=== PATIENT | male | born 1945 | race Caucasian/White ===

== ENCOUNTER 2021-02-17 13:28 | Emergency (ER) | payer MEDICARE, SELFPAY ==
[2021-02-17] VITALS (9 sets, daily range): BP systolic 180–210; BP diastolic 82–98; PULSE 53–71; RESP 20; TEMP 36.9; O2SAT 93–97
--- NOTE | 2021-02-17 15:39 | ED_ITS ---
HPI - Skin/Abscess/Foreign Bdy General Chief complaint: Skin/Abscess/Foreign Body Stated complaint: Wound on left leg he'd like checked out Time Seen by Provider: 02/17/21 15:26 Source: patient Mode of arrival: Ambulatory History of Present Illness HPI narrative: The patient is a 75 year old male with left leg wound ongoing for the last 5 months. He said he initially tripped on a propane tank caused a flap like but on his left leg. It was stapled and has not healed well. He says the surrounding area is always erythematous it is not any more erythematous today. He has had some lateral swelling superior to the area. He wears compression socks says sometimes when he wears compression socks there is drainage from the wound but typically not Related Data Home Medications Medication Instructions Recorded Confirmed amlodipine 5 mg tablet 5 mg PO DAILY 12/01/17 12/01/17 artifi.tears(hypromellose)(PF) 0.3 EYE-BOTH ml 12/01/17 12/01/17 % eye drops aspirin 325 mg tablet 325 mg PO .prn tab 12/01/17 12/01/17 carvedilol 12.5 mg tablet 12.5 mg PO BID 12/01/17 12/01/17 diazepam 10 mg tablet 10 mg PO BID tab 12/01/17 12/01/17 fluticasone propionate 50 2 inhalation INHALATION BID 12/01/17 12/01/17 mcg/actuation blister powder for inhalation furosemide 40 mg tablet 40 mg PO DAILY 12/01/17 12/01/17 omeprazole magnesium 20 mg 40 mg PO DAILY 12/01/17 12/01/17 tablet,delayed release prednisone 1 mg tablet 5 mg PO DAILY tab 12/01/17 12/01/17 Previous Rx's Medication Instructions Recorded doxycycline hyclate 100 mg capsule 100 mg PO BID #14 cap 02/17/21 Allergies Allergy/AdvReac Type Severity Reaction Status Date / Time gentamicin Allergy Verified 12/01/17 11:03 INGREDIENT: NDA - NO KNOWN Allergy Unknown Uncoded 08/25/17 13:03 DRUG ALLERGIES Review of Systems Review of Systems Narrative: GENERAL: Denies chills,fever HEENT: Denies throat pain RESPIRATORY: Denies dyspnea, cough, wheezing CARDIOVASCULAR: Denies chest pain, palpitations GASTROINTESTINAL: Denies nausea, vomiting MUSCULOSKELETAL: Denies extremity pain, injury SKIN: See HPI NEUROLOGIC: Denies weakness, dizziness, headache, numbness 8 point review of systems is negative except for those stated above and HPI Patient History Medical History (Updated 02/17/21 @ 16:13 by Divya Armas DO) HTN (hypertension) Osteoarthritis Surgical History History of ankle fusion History of appendectomy History of appendectomy History of left knee replacement History of total left knee replacement History of tracheostomy Family History Other Hypertension Social History marital status: household members: spouse Smoking Status: Former smoker alcohol intake: current substance use type: marijuana Smoking Status: Former smoker alcohol intake frequency: 0-2 drinks per day Alcohol type: beer Exam Initial Vital Signs Initial Vital Signs: Vital Signs Temperature 98.4 F 02/17/21 13:33 Pulse Rate 71 02/17/21 13:33 Respiratory Rate 20 02/17/21 13:33 Pulse Oximetry 95 02/17/21 13:33 GENERAL: Well-appearing, well-nourished and in no acute distress. CARDIOVASCULAR: peripheral pulses in tact, cap refill <2 sec RESPIRATORY: No respiratory distress, speaks in full sentences without difficulty EXTREMITIES: Normal range of motion, no clubbing or edema. Neurovascularly intact Swelling on the left lateral calf however there is no erythema it is not tender calf is soft no sign NEUROLOGICAL: Cranial nerves II through XII grossly intact. Normal gait and speech. SKIN: Chronic left lower leg wound surrounding erythema edema but patient says it remains unchanged he does have some scabbed area no gross drainage scabbed area is about 3 cm x 3 symptoms years. Course Orders Ordered: ED Orders 02/17/21 14:12 Wound Culture and Gram Stain Stat Vital Signs Vital signs: Vital Signs - 8 hr 02/17/21 13:33 02/17/21 15:17 02/17/21 15:18 Temperature 98.4 F Pulse Rate 71 67 Respiratory Rate 20 Blood Pressure 210/98 H Pulse Oximetry 95 93 95 02/17/21 15:30 02/17/21 15:31 02/17/21 16:00 Temperature Pulse Rate 58 L 58 L 53 L Respiratory Rate Blood Pressure 180/82 H Pulse Oximetry 96 96 97 02/17/21 16:01 02/17/21 16:30 02/17/21 16:33 Temperature Pulse Rate 62 58 L 70 Respiratory Rate Blood Pressure 200/82 H 206/93 H Pulse Oximetry 96 97 96 MDM - Skin/Abscess/Foreign Bdy MDM Narrative Medical decision making narrative: At this time suspicion for acute infection however he has been having some swelling will start him on a short course of antibiotics not sure it will help. Denies dressing has been placed. He certainly needs wound care after 5 months of not healing wound. I have placed a referral for him. Discharge Plan Departure Patient Disposition: Home Clinical Impression: Chronic wound of extremity Instructions: DI for Wound Infection Activity Restrictions/Additional Instructions: *You have been diagnosed with chronic wound *What to do: You have a wound on your leg. We will do a small trial of antibiotics to see if there is any improvement however it did strongly recommended that he go to wound care for further treatment in order to help this heal. May keep pink bandage on there for about 5-7 days *Continue to take medications as directed Doxycycline 100 mg twice a day for 7 *Follow up with your primary care provider in 2-3 days *Return to ER if you should have increasing redness pus draining smell fever pa in or any new, worsening or concerning symptoms Prescriptions: New doxycycline hyclate 100 mg capsule 100 mg PO BID Qty: 14 RF: 0 No Action furosemide 40 mg tablet 40 mg PO DAILY RF: 0 fluticasone propionate 50 mcg/actuation blister with device 2 inhalation INHALATION BID RF: 0 carvedilol 12.5 mg tablet 12.5 mg PO BID RF: 0 aspirin 325 mg tablet 325 mg PO .prn RF: 0 amlodipine 5 mg tablet 5 mg PO DAILY RF: 0 prednisone 1 mg tablet 5 mg PO DAILY RF: 0 diazepam 10 mg tablet 10 mg PO BID RF: 0 omeprazole magnesium 20 mg tablet,delayed release (DR/EC) 40 mg PO DAILY RF: 0 artifi.tears(hypromellose)(PF) 0.3 % drops EYE-BOTH RF: 0 Referrals: Didier Gibson MD [Physician] - Peace Alba PA-C [Primary Care Provider] -
== END 2021-02-17 16:40 | disposition home or self-care (01) ==
PROVIDERS: Emergency Provider Emergency Medicine; PCP Physician Assistant
DX: S81.802A Unspecified open wound, left lower leg, initial encounter (principal)
CPT/HCPCS: 87070; 87077; 87147; 87186; 87205; 99282

== ENCOUNTER → 2021-03-04 14:28 | Outpatient (CLI) | payer MEDICARE, SELFPAY | PROVIDERS: Family Provider Physician Assistant; PCP Physician Assistant; Visit Provider Physician Assistant | DX: L02.91 Cutaneous abscess, unspecified (principal) | CPT/HCPCS: 87070; 87075; 87077; 87147; 87186; 87205 ==

== ENCOUNTER → 2021-04-04 10:29 | Outpatient (CLI) | payer MEDICARE, SELFPAY ==
[2021-04-04 20:08] LABS: Add Manual Diff / Slide Review NO; Basophils Absolute Auto 100 /uL (0-100); Eosinophils Absolute Auto 300 /uL (0-450); Eosinophils Percent Auto 3.5 % (2-4); Hematocrit 42.6 % (41-53); Hemoglobin 14.5 g/dL (13.5-17.5); Lymphocytes Absolute Auto 1700 /uL (1100-4500); Lymphocytes Percent Auto 22.7 % (25-40); Mean Corpuscular HGB Conc 34.1 % (30-36); Mean Corpuscular Hemoglobin 31.6 PG (26-34); Mean Corpuscular Volume 92.9 fL (80-100); Monocytes Absolute Auto 600 /uL (0-900); Monocytes Percent Auto 8.6 % (3-14); Neutrophils Absolute Auto 4900 /uL (1500-7000); Neutrophils Percent Auto 64.2 % (50-75); Platelet Count 209 X10^3/uL (150-400); Red Blood Cell Count 4.59 X10^6/uL (4.5-5.9); Red Cell Distribution Width 13.7 % (11.6-14.8); White Blood Cell Count 7.6 X10^3/uL (4.5-11.0)
[2021-04-04 20:11] LABS: Hemoglobin A1C% w Est Avg Glu 5.6 % (4.0-6.0)
[2021-04-04 20:19] LABS: Alanine Aminotransferase 17 IU/L (<50); Albumin 4.2 g/dL (3.5-5.0); Albumin Globulin Ratio 1.6 (1.0-2.8); Alkaline Phosphatase 57 U/L (38-126); Aspartate Aminotransferase 27 IU/L (17-59); BUN Creatinine Ratio 14.7 (6-22); Bilirubin Total 0.9 mg/dL (0.2-1.3); Blood Urea Nitrogen 16 mg/dL (9-20); Calcium 9.1 mg/dL (8.4-10.2); Carbon Dioxide 31 mmol/L (22-32); Chloride 97 mmol/L (98-107); Cholesterol 209 mg/dL (140-199); Estimated Glomerular Filt Rate > 60.0 mL/min (>60); Globulin 2.6 g/dL (1.7-4.1); Glucose 109 mg/dL (80-110); HDL Cholesterol 43 mg/dL (40-60); HEMOLYSIS < 15 (0-50); LDL Cholesterol Calculated 141 mg/dL (<100); Potassium 4.1 mmol/L (3.4-5.1); Sodium 135 mmol/L (137-145); Total Protein 6.8 g/dL (6.3-8.2); Triglycerides 125 mg/dL (35-150)
[2021-04-04 20:45] LABS: Prostate Specific Antigen 1.14 ng/mL (0.10-4.00)
== END ==
PROVIDERS: Family Provider Physician Assistant; PCP Physician Assistant; Visit Provider Family Medicine
DX: I10 Essential (primary) hypertension (principal)
CPT/HCPCS: 80053; 80061; 83036; 84153; 85025

== ENCOUNTER → 2022-05-01 09:36 | Outpatient (CLI) | payer MEDICARE, SELFPAY ==
[2022-05-01 20:00] LABS: Alanine Aminotransferase 20 IU/L (<50); Albumin 3.7 g/dL (3.5-5.0); Albumin Globulin Ratio 1.4 (1.0-2.8); Alkaline Phosphatase 50 U/L (38-126); Aspartate Aminotransferase 28 IU/L (17-59); Bilirubin Total 0.8 mg/dL (0.2-1.3); Blood Urea Nitrogen 18 mg/dL (9-20); Calcium 8.9 mg/dL (8.4-10.2); Carbon Dioxide 32 mmol/L (22-32); Chloride 96 mmol/L (98-107); Estimated Glomerular Filt Rate > 60 mL/min (>60); Globulin 2.7 g/dL (1.7-4.1); Glucose 94 mg/dL (80-110); HEMOLYSIS < 15 (0-50); Sodium 135 mmol/L (137-145); Total Protein 6.4 g/dL (6.3-8.2)
[2022-05-01 20:28] LABS: Prostate Specific Antigen Scrn 1.34 ng/mL (0.1-4.0)
== END ==
PROVIDERS: Family Provider Physician Assistant; PCP Physician Assistant; Visit Provider Physician Assistant
DX: I10 Essential (primary) hypertension (principal); Z12.5 Encounter for screening for malignant neoplasm of prostate
CPT/HCPCS: 80053; G0103

== ENCOUNTER → 2022-10-21 09:14 | Outpatient (CLI) | payer MEDICARE, SELFPAY ==
[2022-10-21 19:57] LABS: Alanine Aminotransferase 20 IU/L (<50); Albumin 3.7 g/dL (3.5-5.0); Albumin Globulin Ratio 1.4 (1.0-2.8); Alkaline Phosphatase 59 U/L (38-126); Aspartate Aminotransferase 27 IU/L (17-59); BUN Creatinine Ratio 23.9 (6-22); Blood Urea Nitrogen 22 mg/dL (9-20); Calcium 8.6 mg/dL (8.4-10.2); Carbon Dioxide 34 mmol/L (22-32); Chloride 95 mmol/L (98-107); Cholesterol 185 mg/dL (140-199); Estimated Glomerular Filt Rate > 60 mL/min (>60); Globulin 2.7 g/dL (1.7-4.1); Glucose 89 mg/dL (80-110); HDL Cholesterol 47 mg/dL (40-60); HEMOLYSIS < 15 (0-50); LDL Cholesterol Calculated 125 mg/dL (<100); Potassium 4.6 mmol/L (3.4-5.1); Sodium 133 mmol/L (137-145); Total Protein 6.4 g/dL (6.3-8.2); Triglycerides 64 mg/dL (35-150)
== END ==
PROVIDERS: Family Provider Physician Assistant; PCP Physician Assistant; Visit Provider Physician Assistant
DX: E78.5 Hyperlipidemia, unspecified (principal)
CPT/HCPCS: 80053; 80061

== ENCOUNTER → 2023-04-27 11:23 | Outpatient (CLI) | payer MEDICARE, SELFPAY ==
[2023-04-27 19:25] LABS: Alanine Aminotransferase 20 IU/L (<50); Albumin 3.7 g/dL (3.5-5.0); Albumin Globulin Ratio 1.2 (1.0-2.8); Alkaline Phosphatase 53 U/L (38-126); Aspartate Aminotransferase 29 IU/L (17-59); Bilirubin Total 0.8 mg/dL (0.2-1.3); Blood Urea Nitrogen 18 mg/dL (9-20); Calcium 9.2 mg/dL (8.4-10.2); Carbon Dioxide 34 mmol/L (22-32); Chloride 92 mmol/L (98-107); Estimated Glomerular Filt Rate > 60 mL/min (>60); Glucose 102 mg/dL (80-110); HEMOLYSIS < 15 (0-50); Sodium 132 mmol/L (137-145); Total Protein 6.7 g/dL (6.3-8.2)
== END ==
PROVIDERS: Family Provider Physician Assistant; PCP Family Medicine; Visit Provider Physician Assistant
DX: E87.1 Hypo-osmolality and hyponatremia (principal)
CPT/HCPCS: 80053

== ENCOUNTER → 2023-05-05 10:50 | Outpatient (CLI) | payer MEDICARE, SELFPAY ==
[2023-05-05 20:00] LABS: C-Reactive Protein Quant 1.5 mg/dL (<1.0); Rheumatoid Factor < 8.6 IU/mL (<12.0)
[2023-05-05 20:11] LABS: Erythrocyte Sedimentation Rate 16 MM/HR (0-15)
[2023-05-11 12:58] LABS: ANA Screen, IFA Negative (.)
== END ==
PROVIDERS: Family Provider Physician Assistant; PCP Family Medicine; Visit Provider Physician Assistant
DX: M25.50 Pain in unspecified joint (principal); L40.9 Psoriasis, unspecified
CPT/HCPCS: 85651; 86038; 86140; 86430

== ENCOUNTER 2023-09-08 11:09 | Inpatient (IN) | payer MEDICARE, SELFPAY ==
[2023-09-08] VITALS (19 sets, daily range): BP systolic 129–176; BP diastolic 58–97; PULSE 53–93; RESP 16–37; TEMP 36.3–36.9; O2SAT 91–97; BMI 36.0; BMI 35.9
--- NOTE | 2023-09-08 11:10 | ED.GENADULT ---
HPI - General Adult General Chief complaint: Shortness of Breath/Dyspnea Stated complaint: SOB/GI Bleed Time Seen by Provider: 09/08/23 11:10 History of Present Illness HPI narrative: 78-year-old gentleman with a history of hypertension, reflux, on medications for congestive heart failure, 1 mg prednisone daily, complaining of significant left knee pain is considering additional surgery for comfort he tends to stand behind a wing back chair leaning over the chair so he is able to straighten but not bear any weight on the left foot. A couple of days ago he had an episode where he fell asleep while he was standing up, he fell onto the wing back chair and has significant amount of bruising over the mid abdomen. Of note he was seen on September 05 with concerns for seizures with no prior history of seizure disorder. I am wondering if at that point he was having bleeding your pain related to this fall with the, now, large amount of visible external hematoma over the central upper abdomen. This morning he was feeling even more short of breath home saturation was thought to be at 50%, in clinic he was found to be at 80% that came up with oxygen replacement currently on 4 L nasal cannula in the low 90s. He was [facility] the [facility] to [facility] via airlift. He is alert, appropriate in no acute distress. He does note that he had had some darker stools recently and some bright red blood with the most recent. He has no history of GI bleeding. He notes that over the last couple of days since his fall, he has been taking up to 6 regular aspirin a day and a total of 2 [id number] ibuprofen a day to help with the pain. Related Data Home Medications Medication Instructions Recorded Confirmed artifi.tears(hypromellose)(PF) 0.3 EYE-BOTH 12/01/17 09/08/23 % eye drops aspirin 325 mg tablet 325 mg PO .prn 12/01/17 09/08/23 fluticasone propionate 50 spray intranasal 09/08/23 09/08/23 mcg/actuation nasal spray,suspension Previous Rx's Medication Instructions Recorded amlodipine 5 mg tablet 5 mg PO DAILY #90 tabs 05/05/23 azelastine 137 mcg (0.1 %) nasal 2 spray intranasal BID #30 mL 05/05/23 spray aerosol carvedilol 12.5 mg tablet 12.5 mg PO BID #180 tabs 05/05/23 fluticasone propionate 50 2 inh inhalation BID #60 ea 05/05/23 mcg/actuation blister powder for inhalation furosemide 40 mg tablet 40 mg PO DAILY #90 tabs 05/05/23 pantoprazole 20 mg tablet,delayed 20 mg PO DAILY #90 tabs 05/05/23 release prednisone 1 mg tablet 1 mg PO DAILY #90 tabs 05/05/23 hydrocodone 5 mg-acetaminophen 325 1 tab PO Q8H PRN pain #20 tabs 07/07/23 mg tablet calcipotriene 0.005 % topical cream See Rx Instructions topical BID 07/30/23 #60 grams sertraline 25 mg tablet 25 mg PO .COMPLEX #90 tabs 09/06/23 Allergies Allergy/AdvReac Type Severity Reaction Status Date / Time gentamicin Allergy Verified 09/08/23 09:02 lisinopril AdvReac Unknown Verified 09/08/23 09:02 Review of Systems Review of Systems Narrative: Pertinent positive and negative findings as per HPI Patient History Medical History (Updated 09/08/23 @ 13:37 by Chiquita Toro MD) SOB (shortness of breath) GERD (gastroesophageal reflux disease) Meralgia paresthetica, left lower limb Obesity GERD without esophagitis Dysphonia Carpal tunnel syndrome, left upper limb Osteoarthritis HTN (hypertension) Surgical History (Updated 03/06/22 @ 13:10 by Maryan Patel PA-C) History of appendectomy History of ankle fusion History of left knee replacement History of tracheostomy History of total left knee replacement History of appendectomy Family History Other Hypertension Social History marital status: household members: spouse Smoking Status: Former smoker alcohol intake: current substance use type: marijuana Smoking Status: Former smoker alcohol intake frequency: 0-2 drinks per day Alcohol type: beer Exam Initial Vital Signs Initial Vital Signs: Vital Signs Temperature 97.3 F L 09/08/23 11:10 Pulse Rate 63 09/08/23 11:10 Respiratory Rate 16 09/08/23 11:10 Blood Pressure 129/73 09/08/23 11:10 Pulse Oximetry 93 09/08/23 11:10 Oxygen Delivery Method Nasal Cannula 09/08/23 11:10 Oxygen Flow Rate 4 09/08/23 11:10 General: Healthy appearing, in no acute distress. Able to give a complete and coherent history. Well-nourished well-developed. 4 L nasal cannula and able to speak in full sentences HEENT: Moist mucous membranes, normal sclera with reactive pupils, Neck: No JVD, no midline tenderness to palpation Respiratory: Lungs are clear to auscultation, no wheezing no rales no rhonchi. Full and symmetrical air movement Chest: Dramatic subcutaneous bruising over the entire upper abdomen/lower thorax. The bleeding is extending into the right axillary area. He does not have significant pain or tenderness with AP compression of his thorax. Cardiac: Regular rate and rhythm no murmurs no bruits Abdomen: Soft, mild tenderness only with deep palpation. No flank pain. No thoracic tenderness on palpation. On rectal exam he has a small internal hemorrhoid that looks like it has recently bled. Multiple external hemorrhoidal tags that are noninflamed and nonbleeding. Skin: Pale but otherwise Warm and dry, no rashes Neurologic: Grossly neurologically intact with no obvious asymmetries or abnormalities Extremities: Small bruise to the left patella without obvious abrasion or contusion. Complains of tenderness in the right shoulder but has full range of motion and no obvious bony in your in the area including clavicle, scapula, humerus Psych: Cooperative, appropriate insight and affect Course Orders Ordered: ED Orders 09/08/23 11:30 Complete Blood Count AUTO DIFF Stat Comprehensive Metabolic Panel Stat NT-proBNP (BNP-Adult 18+) Stat Troponin I Stat Type and Screen Stat 09/08/23 11:34 CT chest abd pel w con Stat Vital Signs Vital signs: Vital Signs - 8 hr 09/08/23 11:10 09/08/23 11:17 09/08/23 11:26 Temperature 97.3 F L Pulse Rate 63 93 H Respiratory Rate 16 Blood Pressure 129/73 129/73 Pulse Oximetry 93 Oxygen Delivery Method Nasal Cannula Oxygen Flow Rate 4 09/08/23 11:26 09/08/23 11:30 09/08/23 11:31 Temperature Pulse Rate 60 65 Respiratory Rate 26 H 25 H Blood Pressure 166/74 H Pulse Oximetry 92 95 Oxygen Delivery Method Oxygen Flow Rate 09/08/23 11:31 09/08/23 11:52 09/08/23 11:52 Temperature Pulse Rate 60 64 Respiratory Rate 34 H 25 H Blood Pressure 167/78 H Pulse Oximetry 96 95 Oxygen Delivery Method Nasal Cannula Oxygen Flow Rate 4 09/08/23 12:00 09/08/23 12:00 09/08/23 12:30 Temperature Pulse Rate 67 57 L Respiratory Rate 32 H 22 Blood Pressure 176/74 H Pulse Oximetry 95 97 Oxygen Delivery Method Oxygen Flow Rate 09/08/23 12:31 09/08/23 12:31 Temperature Pulse Rate 53 L Respiratory Rate 23 Blood Pressure 157/97 H Pulse Oximetry 94 Oxygen Delivery Method Nasal Cannula Oxygen Flow Rate 4 Medical Decision Making Lab Data 09/08/23 11:30 09/08/23 11:30 Labs: Lab Results 09/08/23 Range/Units 11:30 WBC 7.4 (4.5-11.0) X10^3/uL RBC 3.13 L (4.5-5.9) X10^6/uL Hgb 9.0 L (13.5-17.5) g/dL Hct 27.4 L (41-53) % MCV 87.5 (80-100) fL MCH 28.9 (26-34) PG MCHC 33.0 (30-36) % RDW 15.3 H (11.6-14.8) % Plt Count 310 (150-400) X10^3/uL Neut % (Auto) 69.4 (50-75) % Lymph % (Auto) 17.6 L (25-40) % [place] % (Auto) 11.1 (3-14) % Eos % (Auto) 1.1 L (2-4) % Baso % (Auto) 0.8 (0-2) % Neut # (Auto) 5100 (4987-2697) /uL Lymph # (Auto) 1300 (8580-8783) /uL [place] # (Auto) 800 (0-900) /uL Eos # (Auto) 100 (0-450) /uL Baso # (Auto) 100 (0-100) /uL Sodium 128 L (137-145) mmol/L Potassium 3.9 (3.4-5.1) mmol/L Chloride 92 L (98-107) mmol/L Carbon Dioxide 36 H (22-32) mmol/L BUN 24 H (9-20) mg/dL Creatinine 0.78 (0.66-1.25) mg/dL Estimated GFR > 60 (>60) mL/min BUN/Creatinine Ratio 30.8 H (6-22) Glucose 94 (80-110) mg/dL Calcium 8.5 (8.4-10.2) mg/dL Total Bilirubin 0.7 (0.2-1.3) mg/dL AST 34 (17-59) IU/L ALT 26 (<50) IU/L Alkaline Phosphatase 49 (38-126) U/L Troponin I < 0.012 (0.01-0.034) ng/mL NT-Pro-B Natriuret Pep 334 (<450) pg/mL Total Protein 6.4 (6.3-8.2) g/dL Albumin 3.4 L (3.5-5.0) g/dL Globulin 3.0 (1.7-4.1) g/dL Albumin/Globulin Ratio 1.1 (1.0-2.8) Blood Type O Positive Antibody Screen Negative Imaging Data CT chest abdomen pelvis: Radiologist's Impression: PROCEDURE: CT CHEST ABD PEL W CON INDICATIONS: trauma, blunt - fell a few days ago TECHNIQUE: After the administration of intravenous contrast, 5 mm thick sections acquired from the lung apices to the symphysis. 5 mm coronal and sagittal reformats were performed, with additional 7 mm MIP reformats through the lungs. For radiation dose reduction, the following was used: automated exposure control, adjustment of mA and/or kV according to patient size. COMPARISON: None. FINDINGS: Image quality: Excellent. CHEST: Lower Neck: No enlarged lymph nodes. Thyroid: No thyroid nodules which require sonographic follow up, per consensus guidelines. Axillae: No enlarged lymph nodes. Chest Wall: Unremarkable. Lungs and Pleura: No pneumothorax or pleural effusions. No consolidation or suspicious nodules. Heart: Heart size is mildly prominent. Minimal pericardial effusion. Thoracic Vessels: The aorta and pulmonary arteries demonstrate normal size. Mediastinum and Carolyn: No enlarged lymph nodes. Esophagus: No wall thickening. No hiatal hernia. ABDOMEN: Liver: No solid mass. Hepatic steatosis. Gallbladder: Dependent luminal stone without wall thickening. Biliary ducts: No biliary dilation. Pancreas: No ductal dilation. Spleen: Size is within normal limits. Adrenal Glands: No adrenal nodules. Kidneys and Ureters: No hydronephrosis. No solid mass. No complex renal cystic lesion which requires follow up. Stomach and Bowel: Normal colonic caliber, without significant wall thickening. Diverticulosis. No inflammatory change. The Peritoneum: No abnormal intraperitoneal fluid. No free air. Ventral Wall: No significant ventral hernia. Abdominal Nodes: Retroperitoneal adenopathy is present with an anterior aortic lymph node measuring 1.7 cm on series 2, image 73. No priors. Scattered mildly enlarged peripancreatic as well as mesenteric lymph nodes are also present. Vessels: Aorta and inferior vena cava are normal in size. PELVIS: Pelvic Organs: Unremarkable. Bladder: No bladder wall thickening, accounting for underdistention. Pelvic Nodes: No enlarged lymph nodes. Miscellaneous: Bilateral fat containing inguinal hernias are present. Bones: No aggressive osseous abnormality. Are scoliotic curvature and multilevel degenerative changes are present. IMPRESSION: No visualized acute traumatic osseous or visceral injury. Retroperitoneal adenopathy with although mildly enlarged. Pancreatic mesenteric lymph nodes. While this could be reactive in nature, interval follow-up is recommended as other etiologies cannot be excluded. No priors are available for comparison. Dictated by: Constanza Chirinos M.D. on 09/08/2023 at 12:12 In addition to the above, there is heterogeneous soft tissue density anterior to the right shoulder measuring 7.6 x 6.1 cm. Hounsfield units measure 52. There are several small areas of linear and punctate hyperdensity within the region. Overall appearance is most consistent with hematoma with areas of hyperdensity most suggestive of hemorrhage. No visualized underlying osseous fracture. Dictated by: Constanza Chirinos M.D. on 09/08/2023 at 13:07 MDM Narrative Medical decision making narrative: CC: Dyspnea Complicating co-morbidities: Fall 4 days ago with impressive and extensive bleeding over the lower torso upper abdomen Data collected from: patient, air lift Social determinants of health that may influence the patients condition: Patient lives on [facility] Medical records reviewed: Note from clinic visit this morning are reviewed. Differential considered: Dyspnea related to acute anemia, acute anemia secondary to recent trauma, congestive heart failure exacerbated by anemia, acute coronary syndrome Exam documented above, pertinent findings include: Alert and appropriate, speaking in full sentences, no wheezing, impressive bleeding over the lower thorax/upper abdomen extending into the both thorax and abdomen into the right axilla Lab Test results independently reviewed as above. Pertinent findings: CBC shows hemoglobin of 9 hematocrit of 27.4. Comparison numbers are from March of 2021 and show 14.5 and 42.6. No leukocytosis and platelet count is within normal limits Chemistries show hyponatremia at 1:28 a.m., creatinine is appropriate. Troponin is undetectable BNP is not elevated Imaging studies independently reviewed: CT scan of the chest abdomen and pelvis does not show any acute fractures, pneumothorax, hemothorax, mediastinal abnormalities, intra-abdominal abnormalities of note is a large 7.6 x 6.1 cm hematoma in the anterior right shoulder extending over the pectoralis area consistent with source of likely blood loss. It correlates nicely with the dramatic bruising seen over the anterior shoulder and upper abdomen/torso Consultations: As this is a technical trauma admission and with the large volume of blood loss Dr. Hayward we will consult. Care is reviewed with Dr. Shepard who will admit the patient. Treatments: Because of his significant hypoxia in the setting of acute blood loss he is given a unit blood along with 40 mg of IV Lasix. At this point I do not think he is actively bleeding and TXA is not given. We will continue to follow H&H Discussion: 78-year-old gentleman not currently anticoagulated with mechanical fall approximately 4 days ago over the back edge of a chair with large hematoma to the right anterior shoulder/pectoralis area question of the pectoralis muscle tear is entertained. Due to pain and abrupt anemia he is having increasing dyspnea currently requiring 2 L of oxygen. He will be transfused an initial unit of packed red blood cells, given IV Lasix and reassessed. There was no evidence of underlying trauma to the lungs or bony injuries that would require further evaluation at this time. He understands need for hospital admission Discharge Plan Departure Patient Disposition: Admitted as Observation Clinical Impression: Acute blood loss anemia, Hypoxia, Acute hyponatremia Hematoma of right chest wall Qualifiers: Encounter type: initial encounter Qualified Code(s): S20.211A - Contusion of right front wall of thorax, initial encounter Admit Date/Time: 09/08/23 13:34 Admit Provider: Pavel Shepard
--- NOTE | 2023-09-08 11:34 | DI.CT.S_ITS ---
PROCEDURE: CT CHEST ABD PEL W CON INDICATIONS: trauma, blunt - fell a few days ago TECHNIQUE: After the administration of intravenous contrast, 5 mm thick sections acquired from the lung apices to the symphysis. 5 mm coronal and sagittal reformats were performed, with additional 7 mm MIP reformats through the lungs. For radiation dose reduction, the following was used: automated exposure control, adjustment of mA and/or kV according to patient size. COMPARISON: None. FINDINGS: Image quality: Excellent. CHEST: Lower Neck: No enlarged lymph nodes. Thyroid: No thyroid nodules which require sonographic follow up, per consensus guidelines. Axillae: No enlarged lymph nodes. Chest Wall: Unremarkable. Lungs and Pleura: No pneumothorax or pleural effusions. No consolidation or suspicious nodules. Heart: Heart size is mildly prominent. Minimal pericardial effusion. Thoracic Vessels: The aorta and pulmonary arteries demonstrate normal size. Mediastinum and Carolyn: No enlarged lymph nodes. Esophagus: No wall thickening. No hiatal hernia. ABDOMEN: Liver: No solid mass. Hepatic steatosis. Gallbladder: Dependent luminal stone without wall thickening. Biliary ducts: No biliary dilation. Pancreas: No ductal dilation. Spleen: Size is within normal limits. Adrenal Glands: No adrenal nodules. Kidneys and Ureters: No hydronephrosis. No solid mass. No complex renal cystic lesion which requires follow up. Stomach and Bowel: Normal colonic caliber, without significant wall thickening. Diverticulosis. No inflammatory change. The Peritoneum: No abnormal intraperitoneal fluid. No free air. Ventral Wall: No significant ventral hernia. Abdominal Nodes: Retroperitoneal adenopathy is present with an anterior aortic lymph node measuring 1.7 cm on series 2, image 73. No priors. Scattered mildly enlarged peripancreatic as well as mesenteric lymph nodes are also present. Vessels: Aorta and inferior vena cava are normal in size. PELVIS: Pelvic Organs: Unremarkable. Bladder: No bladder wall thickening, accounting for underdistention. Pelvic Nodes: No enlarged lymph nodes. Miscellaneous: Bilateral fat containing inguinal hernias are present. Bones: No aggressive osseous abnormality. Are scoliotic curvature and multilevel degenerative changes are present. IMPRESSION: No visualized acute traumatic osseous or visceral injury. Retroperitoneal adenopathy with although mildly enlarged. Pancreatic mesenteric lymph nodes. While this could be reactive in nature, interval follow-up is recommended as other etiologies cannot be excluded. No priors are available for comparison. Dictated by: Constanza Chirinos M.D. on 09/08/2023 at 12:12 Approved by: Constanza Chirinos M.D. on 09/08/2023 at 12:16
[2023-09-08 11:42] LABS: Add Manual Diff / Slide Review NO; Basophils Absolute Auto 100 /uL (0-100); Basophils Percent Auto 0.8 % (0-2); Eosinophils Absolute Auto 100 /uL (0-450); Eosinophils Percent Auto 1.1 % (2-4); Hematocrit 27.4 % (41-53); Lymphocytes Absolute Auto 1300 /uL (1100-4500); Lymphocytes Percent Auto 17.6 % (25-40); Mean Corpuscular Hemoglobin 28.9 PG (26-34); Mean Corpuscular Volume 87.5 fL (80-100); Monocytes Absolute Auto 800 /uL (0-900); Monocytes Percent Auto 11.1 % (3-14); Neutrophils Absolute Auto 5100 /uL (1500-7000); Neutrophils Percent Auto 69.4 % (50-75); Platelet Count 310 X10^3/uL (150-400); Red Blood Cell Count 3.13 X10^6/uL (4.5-5.9); Red Cell Distribution Width 15.3 % (11.6-14.8); White Blood Cell Count 7.4 X10^3/uL (4.5-11.0)
[2023-09-08 12:03] LABS: Alanine Aminotransferase 26 IU/L (<50); Albumin 3.4 g/dL (3.5-5.0); Albumin Globulin Ratio 1.1 (1.0-2.8); Alkaline Phosphatase 49 U/L (38-126); Aspartate Aminotransferase 34 IU/L (17-59); BUN Creatinine Ratio 30.8 (6-22); Bilirubin Total 0.7 mg/dL (0.2-1.3); Blood Urea Nitrogen 24 mg/dL (9-20); Calcium 8.5 mg/dL (8.4-10.2); Carbon Dioxide 36 mmol/L (22-32); Chloride 92 mmol/L (98-107); Estimated Glomerular Filt Rate > 60 mL/min (>60); Glucose 94 mg/dL (80-110); HEMOLYSIS < 15 (0-50); Potassium 3.9 mmol/L (3.4-5.1); Sodium 128 mmol/L (137-145); Total Protein 6.4 g/dL (6.3-8.2)
[2023-09-08 12:14] LABS: NT-proBNP (BNP-Adult 18+) 334 pg/mL (<450); Troponin I < 0.012 ng/mL (0.01-0.034)
--- NOTE | 2023-09-08 13:18 | PC.NURSE ---
Patient informed about plan to transfuse a unit of blood. Blood transfusion process reviewed and all questions answered. Patient signed consent and this was placed in chart.
[2023-09-08] MEDS: FUROSEMIDE 40 MG/4 ML VIAL IV (13:56)
--- NOTE | 2023-09-08 14:50 | P.HP_ITS ---
History of Present Illness History of Present Illness Date Patient Seen: 09/08/23 Time Patient Seen: 15:07 Chief complaint: SOB/GI Bleed Narrative: This patient is 78-year-old male who presented by helicopter from [facility]. He is complaint was fatigue and dyspnea as well as black stool. The patient was a very interesting gentleman with history of hypertension and GERD as well as heart failure. He has had significant chronic left and right knee pain related to arthritis. He takes about 6 aspirin and some ibuprofen every day for this. 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 Since that time he has had chronic symptoms of both sleep apnea and stridor he describes having the auto PEEP to breathe adequately. He also notes multiple seizures or seizure type episodes have not been evaluated and treated in the past. There was 1 that was witnessed by his where he was outstretched and rigid with his eyes straightening straight ahead, but no tonic- clonic activity in a very short period of confusion afterwards. He had a recent fall about a week and a half ago with a left rib fracture. He would another fall several days prior where he fell over the back of his chair because he fell asleep in a standing position we will try to off weight his right knee to improve the pain. He notes black tarry stool for several days. He denies any history of GI bleeding or epigastric abdominal pain. He was hypoxic can his primary care doctor's office on [facility] as well as in the emergency department but responded to 4 L of oxygen. Chest x-ray is fairly unremarkable. There is no recent echo data. He has not been evaluated for sleep apnea in the outpatient setting. He denies any chest pain, palpitations, fevers, chills. No recent cough. No vomiting of blood. With regards to level of care he is full resuscitation. He is unsure about being on a mechanical ventilator again. [facility] Medical History SOB (shortness of breath) GERD (gastroesophageal reflux disease) Meralgia paresthetica, left lower limb Obesity GERD without esophagitis Dysphonia Carpal tunnel syndrome, left upper limb Osteoarthritis HTN (hypertension) Surgical History History of appendectomy History of ankle fusion History of left knee replacement History of tracheostomy History of total left knee replacement History of appendectomy Family History Other Hypertension Social History marital status: household members: spouse Smoking Status: Former smoker alcohol intake: current substance use type: marijuana Meds Home Medications and Allergies Home Medications Medication Instructions Recorded Confirmed Type aspirin 325 mg tablet 325 mg PO .prn 12/01/17 09/08/23 History amlodipine 5 mg tablet 5 mg PO DAILY #90 tabs 05/05/23 09/08/23 Rx azelastine 137 mcg (0.1 %) nasal 2 spray intranasal BID #30 mL 05/05/23 09/08/23 Rx spray aerosol carvedilol 12.5 mg tablet 12.5 mg PO BID #180 tabs 05/05/23 09/08/23 Rx furosemide 40 mg tablet 40 mg PO DAILY #90 tabs 05/05/23 09/08/23 Rx pantoprazole 20 mg tablet,delayed 20 mg PO DAILY #90 tabs 05/05/23 09/08/23 Rx release prednisone 1 mg tablet 1 mg PO DAILY #90 tabs 05/05/23 09/08/23 Rx hydrocodone 5 mg-acetaminophen 325 1 tab PO Q8H PRN pain #20 tabs 07/07/23 09/08/23 Rx mg tablet sertraline 25 mg tablet 25 mg PO .COMPLEX #90 tabs 09/06/23 09/08/23 Rx Allergies Allergy/AdvReac Type Severity Reaction Status Date / Time gentamicin Allergy Verified 09/08/23 09:02 lisinopril AdvReac Unknown Verified 09/08/23 09:02 Review of Systems Review of Systems Narrative: All else reviewed and otherwise unremarkable except as noted in the history and physical. Exam Vital Signs (past 8 hours): - 09/08/23 11:10 09/08/23 11:17 09/08/23 11:26 Temperature 97.3 F L Pulse Rate 63 93 H Respiratory Rate 16 Blood Pressure 129/73 129/73 Pulse Oximetry 93 Oxygen Delivery Method Nasal Cannula Oxygen Flow Rate 4 09/08/23 11:26 09/08/23 11:30 09/08/23 11:31 Temperature Pulse Rate 60 65 Respiratory Rate 26 H 25 H Blood Pressure 166/74 H Pulse Oximetry 92 95 Oxygen Delivery Method Oxygen Flow Rate 09/08/23 11:31 09/08/23 11:52 09/08/23 11:52 Temperature Pulse Rate 60 64 Respiratory Rate 34 H 25 H Blood Pressure 167/78 H Pulse Oximetry 96 95 Oxygen Delivery Method Nasal Cannula Oxygen Flow Rate 4 09/08/23 12:00 09/08/23 12:00 09/08/23 12:30 Temperature Pulse Rate 67 57 L Respiratory Rate 32 H 22 Blood Pressure 176/74 H Pulse Oximetry 95 97 Oxygen Delivery Method Oxygen Flow Rate 09/08/23 12:31 09/08/23 12:31 09/08/23 13:00 Temperature Pulse Rate 53 L 63 Respiratory Rate 23 24 Blood Pressure 157/97 H Pulse Oximetry 94 91 Oxygen Delivery Method Nasal Cannula Oxygen Flow Rate 4 09/08/23 13:01 09/08/23 13:01 09/08/23 13:26 Temperature 98.0 F Pulse Rate 55 L 67 Respiratory Rate 22 24 Blood Pressure 151/69 H 163/72 H Pulse Oximetry 91 Oxygen Delivery Method Nasal Cannula Oxygen Flow Rate 4 09/08/23 13:28 09/08/23 13:28 09/08/23 13:30 Temperature Pulse Rate 75 Respiratory Rate 30 H Blood Pressure 163/72 H 152/67 H Pulse Oximetry 93 Oxygen Delivery Method Oxygen Flow Rate 09/08/23 13:30 09/08/23 13:32 09/08/23 13:48 Temperature 98.0 F 98.1 F Pulse Rate 79 72 63 Respiratory Rate 37 H 24 24 Blood Pressure 152/67 H 168/97 H Pulse Oximetry 93 Oxygen Delivery Method Oxygen Flow Rate 09/08/23 13:50 09/08/23 13:50 Temperature Pulse Rate 71 Respiratory Rate Blood Pressure 168/97 H Pulse Oximetry 96 Oxygen Delivery Method Nasal Cannula Oxygen Flow Rate 4 Oxygen Delivery Method Nasal Cannula Oxygen Flow Rate 4 Narrative Exam Narrative: NAD, alert and oriented, fluent speech, calm. On 2 L of oxygen. Normocephalic skull, EOMI, anicteric sclera, symmetric pupils. Oropharynx unremarkable, no droop. Neck supple, midline trachea, no adenopathy. Lungs clear, normal rate and effort. Heart regular, no murmur gallop or rub. He is large bruises in the right axilla, right chest and right upper abdomen. These are minimally tender. Abdomen is soft, non distended and non tender. Extremities are notable for 1 to 2+ bilateral edema. Skin is free of rash or lesions. Joints: Knees are somewhat swollen and deformed from chronic arthritis. Judgment appears to be normal. Objective Labs 09/08/23 11:30 09/08/23 11:30 Labs: Laboratory Results - last 24 hr 09/08/23 11:30 WBC 7.4 RBC 3.13 L Hgb 9.0 L Hct 27.4 L MCV 87.5 MCH 28.9 MCHC 33.0 RDW 15.3 H Plt Count 310 Neut % (Auto) 69.4 Lymph % (Auto) 17.6 L [place] % (Auto) 11.1 Eos % (Auto) 1.1 L Baso % (Auto) 0.8 Neut # (Auto) 5100 Lymph # (Auto) 1300 [place] # (Auto) 800 Eos # (Auto) 100 Baso # (Auto) 100 Sodium 128 L Potassium 3.9 Chloride 92 L Carbon Dioxide 36 H BUN 24 H Creatinine 0.78 Estimated GFR > 60 BUN/Creatinine Ratio 30.8 H Glucose 94 Calcium 8.5 Total Bilirubin 0.7 AST 34 ALT 26 Alkaline Phosphatase 49 Troponin I < 0.012 NT-Pro-B Natriuret Pep 334 Total Protein 6.4 Albumin 3.4 L Globulin 3.0 Albumin/Globulin Ratio 1.1 Blood Type O Positive Antibody Screen Negative Crossmatch See Detail Assessment & Plan Assessment & Plan narrative: 1. Acute blood loss anemia, present on admission and active. He was given a blood transfusion in the emergency department. 2. Large right chest hematoma from contusion and fall. Present on admission and stable. 3. Presumed upper GI bleed with melena, present on admission and active. 4. Acute hypoxic respiratory failure, present on admission and active. 5. GERD, present on admission and active. 6. 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 7. 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 8. Probable acute on chronic heart failure with hypervolemic hyponatremia in leg edema, present on admission and active. Plan: -IV Protonix 40 b.i.d. for probable gastric or duodenal ulcer with bleeding. -trend hemoglobin, blood as needed. -NPO at midnight, surgical consult for both hematoma and upper endoscopy in the morning. This was discussed with Dr. Hayward on the phone on the day of admission. -we will anticipate diuresis and wean oxygen after the 1st 12 hours of observing his blood counts and endoscopy. -2D echo to assess LV function. -consider CT brain given his history of possible seizures to rule out structural lesion. He is full resuscitation, confirmed time of admission. His is proxy decision maker. He was admitted to inpatient status, there is an estimated length of stay over 2 midnights for his medical complexities including GI bleeding, blood loss anemia, and heart failure. Time Spent With Patient Time with patient: 30 to 49 minutes with 50% spent counseling/coordinating care Quality VTE Deep Vein Thrombosis/Pulmonary Embolism Present on Admission: No MIPS - Admit I confirm the patient?s Advance Care Plan is present, Code status is documented, Surrogate decision maker is in patient?s record [If Yes, STOP here]: Yes MIPS - Meds 'Current medications' to include all prescriptions, [id number] products, herbals, cannabis/cannabidiol products, and vitamin/mineral/dietary (nutritional) supplements. I have utilized all available resources to obtain, update, or review the patient?s current medications. [If Yes, STOP here]: Yes
--- NOTE | 2023-09-08 15:42 | PT-IP ANOTE ---
PT eval order received. EMR reviewed. checked with nurse and pt currently receiving blood transfusion. informed hospitalist and agreed to hold PT today. will f/u.
[2023-09-08] MEDS: PANTOPRAZOLE 40 MG VIAL IV ×2 (17:30→21:48)
[2023-09-08] MEDS: HEPARIN 5,000 UNIT/ML VIAL 5000 UNIT SUBCUT (21:48)
[2023-09-08] MEDS: OXYCODONE IR 5 MG TABLET PO (22:54)
[2023-09-08 23:07] LABS: Hematocrit 28.1 % (41-53); Hemoglobin 9.2 g/dL (13.5-17.5)
[2023-09-09] VITALS (89 sets, daily range): BP systolic 67–234; BP diastolic 44–109; PULSE 55–102; RESP 4–22; TEMP 37–37.2; O2SAT 81–100
--- NOTE | 2023-09-09 | DI.RAD.S_ITS ---
PROCEDURE: XR CHEST 1V INDICATIONS: DYSPNEA TECHNIQUE: One view of the chest was acquired. COMPARISON: [facility] ([place]), CR, XR CHEST 2V, 09/08/2023, 9:18. FINDINGS: Surgical changes and devices: Right internal jugular central venous catheter tip is in SVC.. Lungs and pleura: There is pulmonary vascular congestion. No definite focal infiltrate. No pleural effusions or pneumothorax. Mediastinum: Mediastinal contours appear normal. Heart size is enlarged. Bones and chest wall: No suspicious bony lesions. Overlying soft tissues appear unremarkable. IMPRESSION: Cardiomegaly and mild congestion. No definite focal infiltrate. No no pleural effusion or pneumothorax. Right-sided central venous catheter tip is seen projecting in the region of SVC. No significant discrepancies from preliminary reading. Dictated by: Ángel Briggs M.D. on 09/09/2023 at 7:56 Approved by: Ángel Briggs M.D. on 09/09/2023 at 7:59
[2023-09-09 05:05] LABS: Add Manual Diff / Slide Review NO; Basophils Absolute Auto 100 /uL (0-100); Basophils Percent Auto 0.7 % (0-2); Eosinophils Absolute Auto 100 /uL (0-450); Hematocrit 33.3 % (41-53); Hemoglobin 10.5 g/dL (13.5-17.5); Lymphocytes Absolute Auto 1900 /uL (1100-4500); Lymphocytes Percent Auto 15.7 % (25-40); Mean Corpuscular HGB Conc 31.6 % (30-36); Mean Corpuscular Hemoglobin 28.4 PG (26-34); Mean Corpuscular Volume 89.8 fL (80-100); Monocytes Absolute Auto 1100 /uL (0-900); Monocytes Percent Auto 8.7 % (3-14); Neutrophils Absolute Auto 9100 /uL (1500-7000); Neutrophils Percent Auto 73.9 % (50-75); Platelet Count 380 X10^3/uL (150-400); Red Blood Cell Count 3.71 X10^6/uL (4.5-5.9); Red Cell Distribution Width 15.2 % (11.6-14.8); White Blood Cell Count 12.2 X10^3/uL (4.5-11.0)
[2023-09-09 05:19] LABS: BUN Creatinine Ratio 20.8 (6-22); Blood Urea Nitrogen 21 mg/dL (9-20); Calcium 8.6 mg/dL (8.4-10.2); Chloride 94 mmol/L (98-107); Estimated Glomerular Filt Rate > 60 mL/min (>60); Glucose 146 mg/dL (80-110); HEMOLYSIS < 15 (0-50); Potassium 4.1 mmol/L (3.4-5.1); Sodium 134 mmol/L (137-145)
[2023-09-09 05:27] LABS: Carbon Dioxide 40 mmol/L (22-32)
[2023-09-09] MEDS: NALOXONE 0.4 MG/ML VIAL 0.2 MG IV (06:15)
--- NOTE | 2023-09-09 07:04 | ED.CONSULT ---
ED Provider Consult/Code Note General Reason for Admission: SOB/GI Bleed Events leading to Consult/Code: Rapid response called for Respiratory failure/obtunded Cardiac Additional: sinus rhythm Respiratory Auscultation: bronchial breath sounds ET Tube Size: 7.5 Tube Secured Depth (cm): 23 Tube Secured Location: teeth Tube Placement Confirmation: Visualized tube passing through cords, Equal breath sounds bilaterally, No breath sounds over epigastrium, Confirmation by capnometry and Chest Xray Lines Placed Central Line Lumen Inserted: triple Ultrasound Used for Placement: Yes Care Provided Description of care provided: I was called to patient's bedside because he was obtunded with ABG showing pH less than 7 and CO2 greater than 130. Patient minimally responsive, near respiratory arrest. Patient was intubated and central line placed by myself for resuscitation efforts at request of hospitalist service. Patient started on propofol and Levophed. Transferred to ICU
[2023-09-09 07:25] LABS: PCO2 ABG > 130.0 mmHg (35-45); pH ABG 6.96 (7.35-7.45)
[2023-09-09 07:26] LABS: PO2 ABG 124 mmHg (80-100)
[2023-09-09 07:29] LABS: Allen Test for ABG Passed? Yes, Passed; Blood Gas Collection Site Right Radial
[2023-09-09 07:30] LABS: Base Excess ABG < -2.0 mmol/L (-2-3); HCO3 ABG < 23 mmol/L (23-27); Oxygen Saturation ABG < 95 % (95-100); TCO2 ABG < 23 mmol/L (23-27)
[2023-09-09 07:31] LABS: Fractionated Inspired Oxygen 90
--- NOTE | 2023-09-09 07:41 | PC.NURSE ---
06:06: Rapid response called. Patient unresponsive to any stimulation. Respirations labored, diaphoretic, pupils constricted and non-reactive. Glucose 146. VS: BP 153/66 MAP (78) HR 82 SPO2 94% 15L oximask. Respiratory therapist present at bedside. Hospitalist Rita contacted. Provider ordered CT Head no contrast, CBC w/ DIFF, CMP, lactate, procal, trop, and EKG. 06:14: ABG results and provider notified of pH 6.95 CO2 > 130, snoring respirations. 06:15: VS: BP 154/73 HR 73 SPO2 96% 15L oximask 06:16: VS: BP 145/76 HR [id number] 95% 15L oximask 06:17: VS: BP 139/67 MAP (7918) HR 84 SPO2 95% 15L oximask ED CORINNA Madrigal at bedside to assist. Attempt to place 18G IV failed. 22G RFA patent. ED MD Bradford present at bedside to discuss w/ hospitalist plan of care. Agree to intubate and place central line. 06:25 Chest XR ordered. 06:26 etomidate 20 mg IVP followed by 10 mL NS IVP in 22G RFA. 06:27 rocuronium 80 mg IVP followed by 10 mL NS IVP in 22G RFA. 06:28 ED MD Bradford successfully intubated patient, ET 7.5, 23 at the teeth. Color change present. Provider auscultate NEGATIVE AIR IN STOMACH BILATERAL BREATH SOUNDS APPROPRIATE RISE AND FALL OF CHEST. 06:30 RT at bedside ventilating patient w/ ambu bag. Provider began process of placing central line. 06:35 VS: BP 89/45 MAP (59) HR 82 Ventilator hooked up by RT. RR 16 TV 510 PEEP 5 SPO2 100% 06:41 1 L NS bolus started 22G IV RFA. 06:43 Central line successfully placed. VS: BP 67/46 MAP (53) Levophed ordered to start at 0.2 mcg/kg/min titrate per protocol. Pt 104 kg. 06:47 Chest XR taken confirming placement of line and tube. Levophed initiated. Wasted remaining 20 mg rocuronium with ED CORINNA Madrigal. 06:52 Transfer to ICU. Report given to CORINNA Lao from CORINNA Carranza.
--- NOTE | 2023-09-09 07:44 | PM.PN.1 ---
Subjective Subjective Interval history: Somnolent this AM. ABG revealed hypercarbia. Intubated at 06:30. Stable on VENT. Exam Vital Signs (past 8 hours): - 09/09/23 00:53 09/09/23 02:31 09/09/23 07:43 Temperature 98.6 F Pulse Rate 76 Respiratory Rate 20 Blood Pressure 104/47 L Pulse Oximetry 95 95 Oxygen Delivery Method Room Air Oxygen Flow Rate 4 Fraction of Inspired Oxygen 70 Fraction of Inspired Oxygen 70 SaO2/FiO2 Ratio 303 Oxygen Delivery Method Room Air Oxygen Flow Rate 4 Narrative Exam Narrative: Intubated. Sedated. ET, R IJ, Rayo Lungs clear anterior Heart regular Abdomen distended. 1-2+ leg edema. Objective Labs 09/09/23 06:16 09/09/23 06:16 Labs: Laboratory Results - last 24 hr 09/08/23 09/08/23 09/09/23 11:30 22:58 04:28 WBC 7.4 12.2 H D RBC 3.13 L 3.71 L Hgb 9.0 L 9.2 L 10.5 L Hct 27.4 L 28.1 L 33.3 L MCV 87.5 89.8 MCH 28.9 28.4 MCHC 33.0 31.6 RDW 15.3 H 15.2 H Plt Count 310 380 Neut % (Auto) 69.4 73.9 Lymph % (Auto) 17.6 L 15.7 L Boyle % (Auto) 11.1 8.7 Eos % (Auto) 1.1 L 1.0 L Baso % (Auto) 0.8 0.7 Neut # (Auto) 5100 9100 H Lymph # (Auto) 1300 1900 Boyle # (Auto) 800 1100 H Eos # (Auto) 100 100 Baso # (Auto) 100 100 ABG Sample Site ABG pH ABG pCO2 ABG pO2 ABG HCO3 ABG Total CO2 ABG O2 Saturation ABG Base Excess FiO2 Sodium 128 L 134 L Potassium 3.9 4.1 Chloride 92 L 94 L Carbon Dioxide 36 H 40 H* BUN 24 H 21 H Creatinine 0.78 1.01 Estimated GFR > 60 > 60 BUN/Creatinine Ratio 30.8 H 20.8 Glucose 94 146 H Calcium 8.5 8.6 Total Bilirubin 0.7 AST 34 ALT 26 Alkaline Phosphatase 49 Troponin I < 0.012 NT-Pro-B Natriuret Pep 334 Total Protein 6.4 Albumin 3.4 L Globulin 3.0 Albumin/Globulin Ratio 1.1 Blood Type O Positive Antibody Screen Negative Crossmatch See Detail 09/09/23 06:04 WBC RBC Hgb Hct MCV MCH MCHC RDW Plt Count Neut % (Auto) Lymph % (Auto) Boyle % (Auto) Eos % (Auto) Baso % (Auto) Neut # (Auto) Lymph # (Auto) Boyle # (Auto) Eos # (Auto) Baso # (Auto) ABG Sample Site Right radial ABG pH 6.96 L* ABG pCO2 > 130.0 H* ABG pO2 124 H ABG HCO3 < 23 L ABG Total CO2 < 23 L ABG O2 Saturation < 95 L ABG Base Excess < -2.0 L FiO2 90 Sodium Potassium Chloride Carbon Dioxide BUN Creatinine Estimated GFR BUN/Creatinine Ratio Glucose Calcium Total Bilirubin AST ALT Alkaline Phosphatase Troponin I NT-Pro-B Natriuret Pep Total Protein Albumin Globulin Albumin/Globulin Ratio Blood Type Antibody Screen Crossmatch [facility] Medical History SOB (shortness of breath) GERD (gastroesophageal reflux disease) Meralgia paresthetica, left lower limb Obesity GERD without esophagitis Dysphonia Carpal tunnel syndrome, left upper limb Osteoarthritis HTN (hypertension) Surgical History History of appendectomy History of ankle fusion History of left knee replacement History of tracheostomy History of total left knee replacement History of appendectomy Family History Other Hypertension Social History marital status: household members: spouse Smoking Status: Former smoker alcohol intake: current substance use type: marijuana Assessment & Plan Assessment & Plan narrative: 1. Acute hyposic and hypercarbic respiratory failure, new and active. 2. Acute pulmonary edema, new and active. 3. Acute blood loss anemia, present on admission and active. He was given a blood transfusion in the emergency department. 4. Large right chest hematoma from contusion and fall. Present on admission and stable. 5. Presumed upper GI bleed with melena, present on admission and active. 6. Acute hypoxic respiratory failure, present on admission and active. 7. GERD, present on admission and active. 8. 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 9. 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 10. Probable acute on chronic heart failure with hypervolemic hyponatremia in leg edema, present on admission and active. Plan: (Intubated) -Vent support -eICU consult (called) -GI and DVT prophylaxis -start diuresis today -ECHO -IV Protonix 40 b.i.d. for probable gastric or duodenal ulcer with bleeding. -trend hemoglobin, blood as needed. -surgical consult for both hematoma and upper endoscopy in the morning. This was discussed with Dr. Hayward on the phone on the day of admission. -we will anticipate diuresis and wean oxygen after the 1st 12 hours of observing his blood counts and endoscopy. -2D echo to assess LV function. -consider CT brain given his history of possible seizures to rule out structural lesion (at some point). He is full resuscitation, confirmed time of admission. Full LOC. His is proxy decision maker. I personally provided 60 minutes of total critical care time on direct and indirect patient care activities on the date of this encounter, exclusive of time spent on other separately reportable services/procedures. Quality VTE Deep Vein Thrombosis/Pulmonary Embolism Present on Admission: No
--- NOTE | 2023-09-09 07:53 | PC.NURSE ---
NOC Shift Note- Critical Co2 level called to provider at 0530. Provider responded at 0535 with ok. Went in to check on patient. patient found diaphoretic and unresponsive. Sternal rubbed patient and called out name. No response. Will from RT was seen walking down the [place]. Will came to patients bedside to assess. Rapid response called and Provider called over phone to log in to monitor to assess patient also. Provider called ER Dr. Bradford to assist with intabation of patient. Dr. Bradford also placed a line to right side of neck. Patient transfer to ICU and report given to CORINNA Lao.
[2023-09-09 07:55] LABS: Add Manual Diff / Slide Review NO; Basophils Absolute Auto 100 /uL (0-100); Basophils Percent Auto 0.7 % (0-2); Eosinophils Absolute Auto 0 /uL (0-450); Eosinophils Percent Auto 0.4 % (2-4); Hematocrit 32.9 % (41-53); Hemoglobin 10.5 g/dL (13.5-17.5); Lymphocytes Absolute Auto 900 /uL (1100-4500); Lymphocytes Percent Auto 8.6 % (25-40); Mean Corpuscular Hemoglobin 28.5 PG (26-34); Mean Corpuscular Volume 89.3 fL (80-100); Monocytes Absolute Auto 800 /uL (0-900); Neutrophils Absolute Auto 8600 /uL (1500-7000); Neutrophils Percent Auto 82.3 % (50-75); Platelet Count 347 X10^3/uL (150-400); Red Blood Cell Count 3.68 X10^6/uL (4.5-5.9); Red Cell Distribution Width 15.4 % (11.6-14.8); White Blood Cell Count 10.4 X10^3/uL (4.5-11.0)
--- NOTE | 2023-09-09 08:00 | RT ---
At approx. 0600, pt noted with SpO2 desaturation into mid 80s while on NC. Noting spontaneous bilateral breaths but gasping respirations. Pt unresponsive to sternal rub, noting strong, bounding radial pulse. Pt placed on 15L oxymask promptly, noted improvement in SpO2 quickly. RT to perform ABG, RN notifying Dr. Salinas for update and potential further interventions.
[2023-09-09 08:01] LABS: Alanine Aminotransferase 29 IU/L (<50); Albumin 3.7 g/dL (3.5-5.0); Albumin Globulin Ratio 1.2 (1.0-2.8); Alkaline Phosphatase 52 U/L (38-126); Aspartate Aminotransferase 35 IU/L (17-59); BUN Creatinine Ratio 21.4 (6-22); Bilirubin Total 0.8 mg/dL (0.2-1.3); Blood Urea Nitrogen 22 mg/dL (9-20); Calcium 8.4 mg/dL (8.4-10.2); Chloride 93 mmol/L (98-107); Estimated Glomerular Filt Rate > 60 mL/min (>60); Glucose 147 mg/dL (80-110); HEMOLYSIS < 15 (0-50); Potassium 4.5 mmol/L (3.4-5.1); Sodium 134 mmol/L (137-145); Total Protein 6.7 g/dL (6.3-8.2)
[2023-09-09 08:04] LABS: Carbon Dioxide 40 mmol/L (22-32)
[2023-09-09] MEDS: propofoL 1,000 MG/100 ML VIAL 3.12 MG IV (08:23)
--- NOTE | 2023-09-09 08:24 | PT-IP ANOTE ---
PT order placed last date and PT reviews chart this a.m. Rapid response called this a.m. after events and pt is now intubated. Will d/c PT order. Please re-order as pt is extubated and appropriate for mobility. Thank you for this consult.
[2023-09-09] MEDS: HEPARIN 5,000 UNIT/ML VIAL 5000 UNIT SUBCUT (08:27)
[2023-09-09] MEDS: PANTOPRAZOLE 40 MG VIAL IV ×2 (08:27→20:52)
--- NOTE | 2023-09-09 08:38 | DI.ECHO.S_ITS ---
Version: 1 Study ID: [id number] [place] [address] Name: SUZANNE CHENEY Study Date: 09/09/2023, 3: 16 PM : 1945 BP: 139 / 63 mmHg Gender: Male Height: 67 in Age: 78 Years Weight: 229 lb BSA: 2.14 mA? Ordering: KRISTEL DESAI Referring: KRISTEL DESAI Clinician: Guerline Shah Reason For Study: PULMONARY EDEMA History: Summary Statements Normal sinus rhythm. Normal LV size and mild concentric LVH; normal wall motion and LV systolic function. EF is 60-65%. Moderate LA enlargement; otherwise normal chamber sizes. Aortic valve is a trileaflet structure with mild associated aortic stenosis. Otherwise no significant valvular abnormalities. No prior study available for comparison. Procedure: A two-dimensional transthoracic echocardiogram with color flow and Doppler was performed. The study quality was technically difficult. There is no prior echocardiogram noted for this patient. The patient was in sinus rhythm with heart rates between 57-64 bpm during the exam. Left Ventricle: The ejection fraction is estimated to be 60-65%. There is mild concentric left ventricular hypertrophy. The left ventricle is normal in size. Right Ventricle: The right ventricular systolic function is normal. The right ventricle is mildly dilated. Atria: There is no Doppler evidence for an interatrial shunt. The left atrium is moderately dilated. Right atrial size is normal. Mitral Valve: There is mild mitral regurgitation. The mitral valve is normal in structure and function. Aortic Valve: There is mild aortic regurgitation. The peak aortic velocity is 2.8 m/sec. The aortic valve mean gradient is 17 mmHg. The calculated aortic valve area is 1.7 cm2. The aortic valve is mildly calcified. Tricuspid Valve: There is mild tricuspid regurgitation. Pulmonary artery pressures cannot be estimated because of the lack of a measurable TR jet velocity. The tricuspid valve leaflets are thin and pliable. Pulmonic Valve: The pulmonic valve is not well visualized. Great Vessels: The dimensions of the ascending aorta are normal. The aortic root is normal size. Inspiratory collapse cannot be assessed because of mechanical ventilation, thus CVP cannot be estimated.. Pericardium/ Pleura: There is no pericardial effusion. There is no pleural effusion. 2D and M-Mode Measurements and Calculations LVIDd: 5.1 cm LVOT diam: 2.32 cm LVIDs: 3.1 cm Ao root diam: 3.4 cm IVSd: 1.23 cm asc Aorta Diam: 3.6 cm LVPWd: 1.28 cm LV pena. diameter/BSA (cm/m^2): 2.38 LV sys. diameter/BSA (cm/m^2): 1.46 RVD1 (basal): 4.6 cm TAPSE: 1.95 cm LA A4 area: 26.3 microfiche duplicator? IVC diam: 2.45 cm LA A2 area: 26.4 microfiche duplicator? RA area: 20.5 microfiche duplicator? LA length (vol): 5.9 cm RA long axis: 6.0 cm LA vol: 100.5 ml RA vol: 60.1 ml LA vol index: 46.9 ml/mA? RA : 28.1 ml/mA? Doppler Measurements and Calculations Ao V2 max: 278.2 cm/sec LVOT Max Victor Hugo: 111.9 cm/sec Ao V2 mean: 183.5 cm/sec LV V1 max P.0 mmHg Ao V2 VTI: 61.4 cm LV V1 VTI: 25.7 cm Ao max P.0 mmHg SV(LVOT): 108.5 ml Ao mean P.6 mmHg MO(I,D): 1.77 microfiche duplicator? MO(V,D): 1.70 microfiche duplicator? MO indexed to BSA (cm^2/m^2): 0.83 sev ratio: 0.42 MV E max victor hugo: 101.0 cm/sec MV dec time: 0.25 sec MV A max victor hugo: 80.8 cm/sec MV E/A: 1.25 Med Peak E' Victor Hugo: 5.3 cm/sec Lat Peak E' Victor Hugo: 9.2 cm/sec E/e' average: 15.0 PA V2 max: 96.7 cm/sec PA mean P.77 mmHg Electronically signed by: Jory Garcia M.D. 09/09/2023, 6: 33 PM
--- NOTE | 2023-09-09 08:40 | OT.IPNOTE ---
Pt is now intubated and per hospitalist okay to discharged OT eval orders.
[2023-09-09 08:53] LABS: Troponin I 0.021 ng/mL (0.01-0.034)
--- NOTE | 2023-09-09 08:53 | DI.RAD.S_ITS ---
PROCEDURE: XR CHEST 1V INDICATIONS: OG tube placement TECHNIQUE: One view of the chest was acquired. COMPARISON: [facility], CR, XR CHEST 1V, 09/09/2023, 6:23. FINDINGS: Surgical changes and devices: OG tube crosses the GE junction with distal tip projecting over the proximal stomach and side port at the GE junction. Lungs and pleura: Lung stable in appearance compared to September 09, 2023 at 6:23 a.m.. Mediastinum: Mediastinal contours appear normal. Heart size is normal. Bones and chest wall: No suspicious bony lesions. Overlying soft tissues appear unremarkable. IMPRESSION: OG tube distal tip projects over the proximal stomach with side port at the GE junction. OG tube should be advanced several centimeters. Dictated by: Sulma Campo MD, PhD on 09/09/2023 at 9:10 Approved by: Sulma Campo MD, PhD on 09/09/2023 at 9:12
[2023-09-09] MEDS: LACTATED RINGERS 1,000 ML 1000 ML IV (09:43)
--- NOTE | 2023-09-09 09:43 | DI.RAD.S_ITS ---
PROCEDURE: XR CHEST 1V INDICATIONS: ett TECHNIQUE: One view of the chest was acquired. COMPARISON: [facility], CR, XR CHEST 1V, 09/09/2023, 8:53. FINDINGS: Surgical changes and devices: ET tube 3.3 centimeters superior to the abdi. Right IJ central venous catheter tip projects over the proximal SVC. OG tube tip at the GE junction. Lungs and pleura: Lungs are clear. No pleural effusions or pneumothorax. Mediastinum: Mediastinal contours appear normal. Heart size is normal. Bones and chest wall: No suspicious bony lesions. Overlying soft tissues appear unremarkable. IMPRESSION: No acute cardiopulmonary abnormality is seen. ET tube 3.3 centimeters. The abdi. OG tube tip at the GE junction. OG tube should be advanced several centimeters. Dictated by: Sulma Campo MD, PhD on 09/09/2023 at 10:14 Approved by: Sulma Campo MD, PhD on 09/09/2023 at 10:15
--- NOTE | 2023-09-09 09:45 | DI.CT.S_ITS ---
PROCEDURE: CT HEAD/BRAIN WO CON INDICATIONS: ams TECHNIQUE: Noncontrast 4.5 mm thick angled axial sections acquired from the foramen magnum to the vertex, with coronal and sagittal reformats. For radiation dose reduction, the following was used: automated exposure control, adjustment of mA and/or kV according to patient size. COMPARISON: None. FINDINGS: Image quality: Diagnostic. CSF spaces: Basal cisterns are patent. No extra-axial fluid collections. Ventricles are normal in size and shape. Brain: No midline shift. No intracranial masses or hemorrhage. Chappell-white matter interface is degenerate lead maintained. No sulcal effacement or noncontrast CT evidence of large territory acute infarct. Skull and face: Calvarium and visualized facial bones are intact, without suspicious lesions. Sinuses: Visualized sinuses and mastoids are clear. IMPRESSION: Atrophy and chronic ischemic change without acute hemorrhage or mass effect Approved by: Joel Jules M.D. on 09/09/2023 at 10:13
[2023-09-09 09:59] LABS: Fractionated Inspired Oxygen 70; HCO3 ABG 33 mmol/L (23-27); Oxygen Saturation ABG 92 % (95-100); PCO2 ABG 60.2 mmHg (35-45); PO2 ABG 69 mmHg (80-100); TCO2 ABG 34 mmol/L (23-27); pH ABG 7.34 (7.35-7.45)
[2023-09-09 10:00] LABS: Allen Test for ABG Passed? Yes, Passed; Blood Gas Collection Site Right Radial
[2023-09-09 10:10] LABS: MRSA (Nasal) PCR NOT DETECTED (Not Detect)
--- NOTE | 2023-09-09 10:34 | RT ---
Transported patient down to CT for a head CT. Pt was transported on transport vent on same settings. AC/VC 500/16/+5/.7. Patient did well and was transported back to ICU and put on main vent and on same settings.
--- NOTE | 2023-09-09 10:43 | P.TELICUCN_ITS ---
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 Shepard Narrative: This patient is 78-year-old male who presented by helicopter from [facility]. He is complaint was fatigue and dyspnea as well as black stool. The patient was a very interesting gentleman with history of hypertension and GERD as well as heart failure. He has had significant chronic left and right knee pain related to arthritis. He takes about 6 aspirin and some ibuprofen every day for this. He has a history of a complicated admission to 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 Since that time he has had chronic symptoms of both sleep apnea and stridor he describes having the auto PEEP to breathe adequately. He also notes multiple seizures or seizure type episodes have not been evaluated and treated in the past. There was 1 that was witnessed by his where he was outstretched and rigid with his eyes straightening straight ahead, but no tonic- clonic activity in a very short period of confusion afterwards. He had a recent fall about a week and a half ago with a left rib fracture. He would another fall several days prior where he fell over the back of his chair because he fell asleep in a standing position we will try to off weight his right knee to improve the pain. He notes black tarry stool for several days. He denies any history of GI bleeding or epigastric abdominal pain. He was hypoxic can his primary care doctor's office on [facility] as well as in the emergency department but responded to 4 L of oxygen. Chest x-ray is fairly unremarkable. There is no recent echo data. He has not been evaluated for sleep apnea in the outpatient setting. He denies any chest pain, palpitations, fevers, chills. No recent cough. No vomiting of blood. With regards to level of care he is full resuscitation. He is unsure about being on a mechanical ventilator again 09/08 patient intubated in AM for ams and acute resp failure. [facility] Medical History SOB (shortness of breath) GERD (gastroesophageal reflux disease) Meralgia paresthetica, left lower limb Obesity GERD without esophagitis Dysphonia Carpal tunnel syndrome, left upper limb Osteoarthritis HTN (hypertension) Surgical History History of appendectomy History of ankle fusion History of left knee replacement History of tracheostomy History of total left knee replacement History of appendectomy Family History Other Hypertension Social History marital status: household members: spouse Smoking Status: Former smoker alcohol intake: current substance use type: marijuana Current Medications Current Medications Medications: Home Medications aspirin 325 mg tablet 325 mg PO .prn 12/01/17 [History Confirmed 09/08/23] amlodipine 5 mg tablet 5 mg PO DAILY #90 tabs 05/05/23 [Rx Confirmed 09/08/23] azelastine 137 mcg (0.1 %) nasal spray aerosol 2 spray intranasal BID #30 mL 05/05/23 [Rx Confirmed 09/08/23] carvedilol 12.5 mg tablet 12.5 mg PO BID #180 tabs 05/05/23 [Rx Confirmed 09/08/23] furosemide 40 mg tablet 40 mg PO DAILY #90 tabs 05/05/23 [Rx Confirmed 09/08/23] pantoprazole 20 mg tablet,delayed release 20 mg PO DAILY #90 tabs 05/05/23 [Rx Confirmed 09/08/23] prednisone 1 mg tablet 1 mg PO DAILY #90 tabs 05/05/23 [Rx Confirmed 09/08/23] hydrocodone 5 mg-acetaminophen 325 mg tablet 1 tab PO Q8H PRN pain #20 tabs 07/07/23 [Rx Confirmed 09/08/23] sertraline 25 mg tablet 25 mg PO .COMPLEX #90 tabs 09/06/23 [Rx Confirmed 09/08/23] Visit Medications (administered) Generic Name Dose Route Start Last Admin Trade Name Freq PRN Reason Stop Dose Admin Propofol 1,000 mg in 100 mls @ 3.12 mls/hr 09/09/23 07:45 09/09/23 08:23 Propofol IV 5 mcg/kg/min TITRATE JAMILA 3.12 mls/hr Administration Protocol 5 MCG/KG/MIN Sodium Chloride 1,000 mls @ 100 mls/hr 09/09/23 07:45 09/09/23 08:24 Normal Saline 0.9% IV Not Given CONT JAMILA Naloxone HCl 0.2 mg 09/08/23 14:47 09/09/23 06:15 Naloxone 0.4 Mg/Ml Vial IV 0.2 mg Q2MIN PRN Administration Opiate Reversal Pantoprazole Sodium 40 mg 09/08/23 16:05 09/09/23 08:27 Pantoprazole 40 Mg Vial IV 40 mg BID JAMILA Administration Exam Vital Signs (past 8 hours): - 09/09/23 06:06 09/09/23 07:08 09/09/23 07:09 Pulse Rate 73 100 H Respiratory Rate 16 Blood Pressure 154/73 H 234/95 H Pulse Oximetry 96 100 Fraction of Inspired Oxygen 09/09/23 07:09 09/09/23 07:10 09/09/23 07:10 Pulse Rate 99 H 96 H Respiratory Rate 15 16 Blood Pressure 228/109 H Pulse Oximetry 100 100 Fraction of Inspired Oxygen 09/09/23 07:14 09/09/23 07:14 09/09/23 07:15 Pulse Rate 96 H 101 H Respiratory Rate 22 22 Blood Pressure 205/93 H Pulse Oximetry 100 100 Fraction of Inspired Oxygen 09/09/23 07:15 09/09/23 07:31 09/09/23 07:31 Pulse Rate 95 H Respiratory Rate 16 Blood Pressure 190/95 H 154/84 H Pulse Oximetry 100 Fraction of Inspired Oxygen 09/09/23 07:43 09/09/23 07:45 09/09/23 07:45 Pulse Rate 80 Respiratory Rate 16 Blood Pressure 119/63 Pulse Oximetry 94 Fraction of Inspired Oxygen 70 09/09/23 08:00 09/09/23 08:00 09/09/23 08:15 Pulse Rate 77 80 Respiratory Rate 16 16 Blood Pressure 106/58 L Pulse Oximetry 93 93 Fraction of Inspired Oxygen 09/09/23 08:15 09/09/23 08:30 09/09/23 08:30 Pulse Rate 79 Respiratory Rate 16 Blood Pressure 116/60 101/53 L Pulse Oximetry 88 L Fraction of Inspired Oxygen 09/09/23 08:46 09/09/23 08:46 09/09/23 09:00 Pulse Rate 79 Respiratory Rate 16 Blood Pressure 87/52 L 82/50 L Pulse Oximetry 94 Fraction of Inspired Oxygen 09/09/23 09:00 Pulse Rate 82 Respiratory Rate 16 Blood Pressure Pulse Oximetry 99 Fraction of Inspired Oxygen Fraction of Inspired Oxygen 70 SaO2/FiO2 Ratio 303 Oxygen Delivery Method Room Air Oxygen Flow Rate 4 Objective Labs 09/09/23 06:16 09/09/23 06:16 Labs: Laboratory Results - last 24 hr 09/08/23 09/08/23 09/09/23 11:30 22:58 04:28 WBC 7.4 12.2 H D RBC 3.13 L 3.71 L Hgb 9.0 L 9.2 L 10.5 L Hct 27.4 L 28.1 L 33.3 L MCV 87.5 89.8 MCH 28.9 28.4 MCHC 33.0 31.6 RDW 15.3 H 15.2 H Plt Count 310 380 Neut % (Auto) 69.4 73.9 Lymph % (Auto) 17.6 L 15.7 L Valencia % (Auto) 11.1 8.7 Eos % (Auto) 1.1 L 1.0 L Baso % (Auto) 0.8 0.7 Neut # (Auto) 5100 9100 H Lymph # (Auto) 1300 1900 Valencia # (Auto) 800 1100 H Eos # (Auto) 100 100 Baso # (Auto) 100 100 ABG Sample Site ABG pH ABG pCO2 ABG pO2 ABG HCO3 ABG Total CO2 ABG O2 Saturation ABG Base Excess FiO2 Sodium 128 L 134 L Potassium 3.9 4.1 Chloride 92 L 94 L Carbon Dioxide 36 H 40 H* BUN 24 H 21 H Creatinine 0.78 1.01 Estimated GFR > 60 > 60 BUN/Creatinine Ratio 30.8 H 20.8 Glucose 94 146 H Calcium 8.5 8.6 Total Bilirubin 0.7 AST 34 ALT 26 Alkaline Phosphatase 49 Troponin I < 0.012 NT-Pro-B Natriuret Pep 334 Total Protein 6.4 Albumin 3.4 L Globulin 3.0 Albumin/Globulin Ratio 1.1 Nasal Screen MRSA (PCR) Blood Type O Positive Antibody Screen Negative Crossmatch See Detail 09/09/23 09/09/23 09/09/23 06:04 06:16 08:00 WBC 10.4 RBC 3.68 L Hgb 10.5 L Hct 32.9 L MCV 89.3 MCH 28.5 MCHC 32.0 RDW 15.4 H Plt Count 347 Neut % (Auto) 82.3 H Lymph % (Auto) 8.6 L Valencia % (Auto) 8.0 Eos % (Auto) 0.4 L Baso % (Auto) 0.7 Neut # (Auto) 8600 H Lymph # (Auto) 900 L Valencia # (Auto) 800 Eos # (Auto) 0 Baso # (Auto) 100 ABG Sample Site Right radial ABG pH 6.96 L* ABG pCO2 > 130.0 H* ABG pO2 124 H ABG HCO3 < 23 L ABG Total CO2 < 23 L ABG O2 Saturation < 95 L ABG Base Excess < -2.0 L FiO2 90 Sodium 134 L Potassium 4.5 Chloride 93 L Carbon Dioxide 40 H* BUN 22 H Creatinine 1.03 Estimated GFR > 60 BUN/Creatinine Ratio 21.4 Glucose 147 H Calcium 8.4 Total Bilirubin 0.8 AST 35 ALT 29 Alkaline Phosphatase 52 Troponin I 0.021 NT-Pro-B Natriuret Pep Total Protein 6.7 Albumin 3.7 Globulin 3.0 Albumin/Globulin Ratio 1.2 Nasal Screen MRSA (PCR) Not detected Blood Type Antibody Screen Crossmatch 09/09/23 09:22 WBC RBC Hgb Hct MCV MCH MCHC RDW Plt Count Neut % (Auto) Lymph % (Auto) Valencia % (Auto) Eos % (Auto) Baso % (Auto) Neut # (Auto) Lymph # (Auto) Valencia # (Auto) Eos # (Auto) Baso # (Auto) ABG Sample Site Right radial ABG pH 7.34 L ABG pCO2 60.2 H ABG pO2 69 L ABG HCO3 33 H ABG Total CO2 34 H ABG O2 Saturation 92 L ABG Base Excess 7.0 H FiO2 70 Sodium Potassium Chloride Carbon Dioxide BUN Creatinine Estimated GFR BUN/Creatinine Ratio Glucose Calcium Total Bilirubin AST ALT Alkaline Phosphatase Troponin I NT-Pro-B Natriuret Pep Total Protein Albumin Globulin Albumin/Globulin Ratio Nasal Screen MRSA (PCR) Blood Type Antibody Screen Crossmatch Assessment & Plan Assessment & Plan narrative: 78 year old male admitted to ICU with: AMS acute respiratory failure acute blood loss GIB chest hematoma SUGGEST -neurochecks/seizure precautions -CT head -may need EEG -avoid benzos/opiods -daiy sat/sbt -keep rass -1 -keep sat above 92% -check cxr/abg prn -chest pt/pulm toilet -keep map above 65 -serial EKG/trop -check echo -serial cbc/coags transfuse blood products prn -ppi bid -GI on board, EGD pending -bolus IVF then maintenance -npo for now -check RUQ sono -monitor ins/outs -replace electrolytes prn -keep glucose 140-180s -gi/dvt ppx -goals of care and severity of illness to be discussed with family daily when available -please call eICU if condition changes
[2023-09-09] MEDS: dexmedeTOMIDine in 0.9 % NaCL 400 MCG/100 ML PLAST..BAG 10.4 MCG IV (10:55)
--- NOTE | 2023-09-09 11:38 | DI.US.S_ITS ---
PROCEDURE: US ABDOMEN LIMITED INDICATIONS: abnormal labs TECHNIQUE: Real-time focused scanning was performed of the abdomen, with image documentation. COMPARISON: [facility], CT, CT CHEST ABD PEL W CON, 09/08/2023, 11:46. FINDINGS: The liver demonstrates enlarged size. The liver demonstrates generalized mildly increased echogenicity. This decreases ultrasound sensitivity for detection of hepatic masses. Normal pedal flow can be seen within the main portal vein. The main portal vein is mildly dilated at 15.1 mm. Multiple gravel-like gallstones are seen, with the largest measuring 7 mm. The gallbladder wall is not thickened, measuring 3 mm or less. No specific pericholecystic fluid is seen. The sonographic Canela sign is negative. There is no biliary dilatation, the common bile duct measures 5 mm. No significant pancreatic abnormality is seen on these images. The visualized right kidney is unremarkable, without hydronephrosis. The periportal lymph node seen on the prior CT are not seen on the current study. IMPRESSION: Enlarged, fatty liver. The main portal vein is mildly dilated. Gallstones are seen, yet without additional sonographic signs of cholecystitis. Negative for biliary dilatation. Please correlate with physical examination findings, patient presentation, and laboratory values. Dictated by: Ervin Meyers M.D. on 09/09/2023 at 12:03 Approved by: Ervin Meyers M.D. on 09/09/2023 at 12:05
[2023-09-09] MEDS: CHLORHEXIDINE GLUCONATE 15 ML CUP PO ×2 (12:00→18:26)
--- NOTE | 2023-09-09 12:29 | CM.DANOTE ---
Initial DCP Assessment Note Pt is a 78 yo male, resident of [facility] , complicated medical hx, admitted OBS with SOB and suspected upper GI bleed; quickly deteriorated this morning and was admitted to the ICU for acute resp failure, now vented. Hx trach and a two month hospital stay at [facility]. PCP: Dr Jeremy Bernal Payer: [employer] [facility] Reviewed chart, pt discussed in multidisciplinary rounds this morning. Patient anticipated to be on the vent for at least another 24-[address] and echo pending today. Met w/patient/spouse Leticia; spouse works, patient had been mostly indp and active until very recently when he started slowing down. Patient was watching his 10 yo grandson after school everyday until recently. Patient and spouse have one adult daughter and grandson on [place], another off [place]. 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 Medical plan of care unfolding. Offered support to spouse and suggested CM team return for discharge coordination conversation once discharge needs are better known; spouse states appreciation. CM team will plan to follow closely NIC Rogers Discharge Planning/Care Management CM Discharge Assessment Start: 09/09/23 12:27 Freq: Status: Active Protocol: Document 09/09/23 12:28 AMANDA (Rec: 09/09/23 12:29 AMANDA [id number]) Discharge Planning Assessment Assigned [employer] NIC [place] DPOA/Assigned Designee Name Leticia Goncalves, spouse Contact Information [phone] Advance Directives? No History Provided By Patient,Medical Record Prior Living Arrangements House Household Members spouse Type of transporation used prior to Relies on Others admit Independent with ADL's Yes Is patient alert and oriented? Yes Needs Assistance With Meal Prep,Home Chores / Shopping Comment TBD Transportation Arrangement TBD
--- NOTE | 2023-09-09 12:52 | PM.CN ---
History of Present Illness Consult details Date Patient Seen: 09/09/23 Time Patient Seen: 12:52 Chief complaint: SOB/GI Bleed Reason for consult: Anemia Requesting provider: Pavel Shepard Narrative: Gentleman was had the equivalent of ground level fall. Chronic knee pain, taking multiple asprin for pain. Multiple comorbid conditions. No anticoagulants. Reports black stools, fatique, SOB. Meds Home Medications and Allergies Home Medications Medication Instructions Recorded Confirmed Type aspirin 325 mg tablet 325 mg PO .prn 12/01/17 09/08/23 History amlodipine 5 mg tablet 5 mg PO DAILY #90 tabs 05/05/23 09/08/23 Rx azelastine 137 mcg (0.1 %) nasal 2 spray intranasal BID #30 mL 05/05/23 09/08/23 Rx spray aerosol carvedilol 12.5 mg tablet 12.5 mg PO BID #180 tabs 05/05/23 09/08/23 Rx furosemide 40 mg tablet 40 mg PO DAILY #90 tabs 05/05/23 09/08/23 Rx pantoprazole 20 mg tablet,delayed 20 mg PO DAILY #90 tabs 05/05/23 09/08/23 Rx release prednisone 1 mg tablet 1 mg PO DAILY #90 tabs 05/05/23 09/08/23 Rx hydrocodone 5 mg-acetaminophen 325 1 tab PO Q8H PRN pain #20 tabs 07/07/23 09/08/23 Rx mg tablet sertraline 25 mg tablet 25 mg PO .COMPLEX #90 tabs 09/06/23 09/08/23 Rx Allergies Allergy/AdvReac Type Severity Reaction Status Date / Time gentamicin Allergy Verified 09/08/23 09:02 lisinopril AdvReac Unknown Verified 09/08/23 09:02 Review of Systems Review of Systems ROS: Yes All systems reviewed with the patient and are negative except as otherwise documented Exam Vital Signs (past 8 hours): - 09/09/23 06:06 09/09/23 07:08 09/09/23 07:09 Pulse Rate 73 100 H Respiratory Rate 16 Blood Pressure 154/73 H 234/95 H Pulse Oximetry 96 100 Oxygen Delivery Method Fraction of Inspired Oxygen 09/09/23 07:09 09/09/23 07:10 09/09/23 07:10 Pulse Rate 99 H 96 H Respiratory Rate 15 16 Blood Pressure 228/109 H Pulse Oximetry 100 100 Oxygen Delivery Method Fraction of Inspired Oxygen 09/09/23 07:14 09/09/23 07:14 09/09/23 07:15 Pulse Rate 96 H 101 H Respiratory Rate 22 22 Blood Pressure 205/93 H Pulse Oximetry 100 100 Oxygen Delivery Method Fraction of Inspired Oxygen 09/09/23 07:15 09/09/23 07:31 09/09/23 07:31 Pulse Rate 95 H Respiratory Rate 16 Blood Pressure 190/95 H 154/84 H Pulse Oximetry 100 Oxygen Delivery Method Fraction of Inspired Oxygen 09/09/23 07:43 09/09/23 07:45 09/09/23 07:45 Pulse Rate 80 Respiratory Rate 16 Blood Pressure 119/63 Pulse Oximetry 94 Oxygen Delivery Method Fraction of Inspired Oxygen 70 09/09/23 08:00 09/09/23 08:00 09/09/23 08:15 Pulse Rate 77 80 Respiratory Rate 16 16 Blood Pressure 106/58 L Pulse Oximetry 93 93 Oxygen Delivery Method Fraction of Inspired Oxygen 09/09/23 08:15 09/09/23 08:30 09/09/23 08:30 Pulse Rate 79 Respiratory Rate 16 Blood Pressure 116/60 101/53 L Pulse Oximetry 88 L Oxygen Delivery Method Fraction of Inspired Oxygen 09/09/23 08:46 09/09/23 08:46 09/09/23 09:00 Pulse Rate 79 Respiratory Rate 16 Blood Pressure 87/52 L 82/50 L Pulse Oximetry 94 Oxygen Delivery Method Fraction of Inspired Oxygen 09/09/23 09:00 09/09/23 09:16 09/09/23 09:16 Pulse Rate 82 81 Respiratory Rate 16 16 Blood Pressure 99/62 Pulse Oximetry 99 98 Oxygen Delivery Method Fraction of Inspired Oxygen 09/09/23 09:30 09/09/23 09:31 09/09/23 09:31 Pulse Rate 76 81 Respiratory Rate 18 16 Blood Pressure 73/50 L Pulse Oximetry 100 100 Oxygen Delivery Method Fraction of Inspired Oxygen 09/09/23 09:45 09/09/23 09:45 09/09/23 10:00 Pulse Rate 76 73 Respiratory Rate 17 17 Blood Pressure 80/48 L Pulse Oximetry 100 99 Oxygen Delivery Method Fraction of Inspired Oxygen 09/09/23 10:01 09/09/23 10:01 09/09/23 10:31 Pulse Rate 81 Respiratory Rate 20 Blood Pressure 67/46 L 132/72 Pulse Oximetry 96 Oxygen Delivery Method Fraction of Inspired Oxygen 09/09/23 10:46 09/09/23 10:46 09/09/23 11:00 Pulse Rate 84 75 Respiratory Rate 16 17 Blood Pressure 144/73 H Pulse Oximetry 81 L 99 Oxygen Delivery Method Fraction of Inspired Oxygen 09/09/23 11:01 09/09/23 11:01 09/09/23 11:15 Pulse Rate 82 76 Respiratory Rate 21 16 Blood Pressure 90/51 L Pulse Oximetry 98 Oxygen Delivery Method Fraction of Inspired Oxygen 09/09/23 11:15 09/09/23 11:30 09/09/23 11:30 Pulse Rate 75 Respiratory Rate 16 Blood Pressure 96/53 L 85/52 L Pulse Oximetry 85 L Oxygen Delivery Method Fraction of Inspired Oxygen 09/09/23 11:37 09/09/23 11:45 09/09/23 11:45 Pulse Rate 72 Respiratory Rate 16 Blood Pressure 88/61 L Pulse Oximetry 100 Oxygen Delivery Method Mechanical Ventilation Fraction of Inspired Oxygen 09/09/23 12:00 09/09/23 12:00 09/09/23 12:16 Pulse Rate 76 55 L Respiratory Rate 16 16 Blood Pressure 73/51 L Pulse Oximetry 100 100 Oxygen Delivery Method Fraction of Inspired Oxygen 09/09/23 12:16 Pulse Rate Respiratory Rate Blood Pressure 177/74 H Pulse Oximetry Oxygen Delivery Method Fraction of Inspired Oxygen Fraction of Inspired Oxygen 70 SaO2/FiO2 Ratio 303 Oxygen Delivery Method Mechanical Ventilation Oxygen Flow Rate 4 Narrative Exam Narrative: Intubated and sedated. Const Nutritional Appearance: overweight [facility] Head: normocephalic Neck Neck: trachea midline Chest Chest: abnormal inspection of the chest (contusion on the left chest) Cardio Rate: bradycardic Rhythm: regular rhythm GI Inspection: obesity Palpation: soft Objective Labs 09/09/23 06:16 09/09/23 06:16 Labs: Laboratory Results - last 24 hr 09/08/23 09/08/23 09/09/23 11:30 22:58 04:28 WBC 12.2 H D RBC 3.71 L Hgb 9.2 L 10.5 L Hct 28.1 L 33.3 L MCV 89.8 MCH 28.4 MCHC 31.6 RDW 15.2 H Plt Count 380 Neut % (Auto) 73.9 Lymph % (Auto) 15.7 L [place] % (Auto) 8.7 Eos % (Auto) 1.0 L Baso % (Auto) 0.7 Neut # (Auto) 9100 H Lymph # (Auto) 1900 [place] # (Auto) 1100 H Eos # (Auto) 100 Baso # (Auto) 100 ABG Sample Site ABG pH ABG pCO2 ABG pO2 ABG HCO3 ABG Total CO2 ABG O2 Saturation ABG Base Excess FiO2 Sodium 134 L Potassium 4.1 Chloride 94 L Carbon Dioxide 40 H* BUN 21 H Creatinine 1.01 Estimated GFR > 60 BUN/Creatinine Ratio 20.8 Glucose 146 H Calcium 8.6 Total Bilirubin AST ALT Alkaline Phosphatase Troponin I Total Protein Albumin Globulin Albumin/Globulin Ratio Nasal Screen MRSA (PCR) Blood Type O Positive Antibody Screen Negative Crossmatch See Detail 09/09/23 09/09/23 09/09/23 06:04 06:16 08:00 WBC 10.4 RBC 3.68 L Hgb 10.5 L Hct 32.9 L MCV 89.3 MCH 28.5 MCHC 32.0 RDW 15.4 H Plt Count 347 Neut % (Auto) 82.3 H Lymph % (Auto) 8.6 L [place] % (Auto) 8.0 Eos % (Auto) 0.4 L Baso % (Auto) 0.7 Neut # (Auto) 8600 H Lymph # (Auto) 900 L [place] # (Auto) 800 Eos # (Auto) 0 Baso # (Auto) 100 ABG Sample Site Right radial ABG pH 6.96 L* ABG pCO2 > 130.0 H* ABG pO2 124 H ABG HCO3 < 23 L ABG Total CO2 < 23 L ABG O2 Saturation < 95 L ABG Base Excess < -2.0 L FiO2 90 Sodium 134 L Potassium 4.5 Chloride 93 L Carbon Dioxide 40 H* BUN 22 H Creatinine 1.03 Estimated GFR > 60 BUN/Creatinine Ratio 21.4 Glucose 147 H Calcium 8.4 Total Bilirubin 0.8 AST 35 ALT 29 Alkaline Phosphatase 52 Troponin I 0.021 Total Protein 6.7 Albumin 3.7 Globulin 3.0 Albumin/Globulin Ratio 1.2 Nasal Screen MRSA (PCR) Not detected Blood Type Antibody Screen Crossmatch 09/09/23 09:22 WBC RBC Hgb Hct MCV MCH MCHC RDW Plt Count Neut % (Auto) Lymph % (Auto) [place] % (Auto) Eos % (Auto) Baso % (Auto) Neut # (Auto) Lymph # (Auto) [place] # (Auto) Eos # (Auto) Baso # (Auto) ABG Sample Site Right radial ABG pH 7.34 L ABG pCO2 60.2 H ABG pO2 69 L ABG HCO3 33 H ABG Total CO2 34 H ABG O2 Saturation 92 L ABG Base Excess 7.0 H FiO2 70 Sodium Potassium Chloride Carbon Dioxide BUN Creatinine Estimated GFR BUN/Creatinine Ratio Glucose Calcium Total Bilirubin AST ALT Alkaline Phosphatase Troponin I Total Protein Albumin Globulin Albumin/Globulin Ratio Nasal Screen MRSA (PCR) Blood Type Antibody Screen Crossmatch [facility] Medical History SOB (shortness of breath) GERD (gastroesophageal reflux disease) Meralgia paresthetica, left lower limb Obesity GERD without esophagitis Dysphonia Carpal tunnel syndrome, left upper limb Osteoarthritis HTN (hypertension) Surgical History History of appendectomy History of ankle fusion History of left knee replacement History of tracheostomy History of total left knee replacement History of appendectomy Family History Other Hypertension Social History marital status: household members: spouse Tobacco & Substance Use Smoking Status: Former smoker alcohol intake: current substance use type: marijuana Assessment & Plan Assessment & Plan narrative: 78yo male with likely upper GI blood loss and left chest hematoma. Now intubated for respiratory distress Plan: Postpone EGD for now. Continue medical management with PPI Time Spent With Patient Time with patient: less than 30 minutes
[2023-09-09] MEDS: fentaNYL 100 MCG/2 ML INJ 36 MCG IV (13:33)
[2023-09-09] MEDS: propofoL 1,000 MG/100 ML VIAL 18.72 MG IV ×3 (13:48→23:13)
[2023-09-09] MEDS: NOREPINEPHRINE BITARTRATE/D5W 4 MG/250 ML PLAST..BAG 9.75 MG IV (13:49)
[2023-09-09 14:30] LABS: Troponin I 0.021 ng/mL (0.01-0.034)
--- NOTE | 2023-09-09 14:51 | DIET.CONS2 ---
Dietary Inpatient Consultation Note Admission Date: 09/08/2023 13:34 78 y M admitted with SOB and suspected upper GI bleed. Was intubated and admitted to ICU for acute resp distress this morning. Nutrition consulted for on vent and NPO status. EGD postponed. Suspected upper GI bleed. Will hold off on starting enteral nutrition support. Will continue to monitor for nutrition support. Diet: 09/09/23 00:01 NPO Diet Diet Modifications: NPO Type: NPO except for Ice Chips Electronically Signed by: Reyna Casey 09/09/23 14:51 Clinical Dietitian [address] [address]
[2023-09-09] MEDS: dexmedeTOMIDine in 0.9 % NaCL 400 MCG/100 ML PLAST..BAG 26 MCG IV ×3 (15:32→22:02)
--- NOTE | 2023-09-09 20:34 | P.ICUMDRN_ITS ---
- Date Patient Seen: 09/09/23 Time Patient Seen: 20:35 :: This patient was seen via real time interactive two-way audiovisual telecommunication. Note: no acute events during the day no active signs of bleeding now off pressors [facility] pending suggest to wean sedatives for SAT/SBT in am if possible
[2023-09-09 20:44] LABS: Troponin I 0.024 ng/mL (0.01-0.034)
[2023-09-09 20:58] LABS: Add Manual Diff / Slide Review NO; Basophils Absolute Auto 100 /uL (0-100); Eosinophils Absolute Auto 0 /uL (0-450); Eosinophils Percent Auto 0.3 % (2-4); Hematocrit 25.5 % (41-53); Hemoglobin 8.4 g/dL (13.5-17.5); Lymphocytes Absolute Auto 1000 /uL (1100-4500); Lymphocytes Percent Auto 14.3 % (25-40); Mean Corpuscular HGB Conc 32.9 % (30-36); Mean Corpuscular Hemoglobin 28.4 PG (26-34); Mean Corpuscular Volume 86.4 fL (80-100); Monocytes Absolute Auto 900 /uL (0-900); Monocytes Percent Auto 11.9 % (3-14); Neutrophils Absolute Auto 5200 /uL (1500-7000); Neutrophils Percent Auto 72.5 % (50-75); Platelet Count 259 X10^3/uL (150-400); Red Blood Cell Count 2.95 X10^6/uL (4.5-5.9); Red Cell Distribution Width 15.3 % (11.6-14.8); White Blood Cell Count 7.2 X10^3/uL (4.5-11.0)
[2023-09-10] VITALS (102 sets, daily range): BP systolic 92–164; BP diastolic 51–74; PULSE 54–89; RESP 0–36; TEMP 36.8–37; O2SAT 89–98
[2023-09-10] MEDS: CHLORHEXIDINE GLUCONATE 15 ML CUP PO ×5 (00:14→23:57)
[2023-09-10 00:50] LABS: Add Manual Diff / Slide Review NO; Basophils Absolute Auto 100 /uL (0-100); Basophils Percent Auto 0.9 % (0-2); Eosinophils Absolute Auto 0 /uL (0-450); Eosinophils Percent Auto 0.4 % (2-4); Hematocrit 24.9 % (41-53); Hemoglobin 8.3 g/dL (13.5-17.5); Lymphocytes Absolute Auto 1000 /uL (1100-4500); Lymphocytes Percent Auto 13.6 % (25-40); Mean Corpuscular HGB Conc 33.1 % (30-36); Mean Corpuscular Hemoglobin 28.3 PG (26-34); Mean Corpuscular Volume 85.4 fL (80-100); Monocytes Absolute Auto 900 /uL (0-900); Monocytes Percent Auto 11.7 % (3-14); Neutrophils Absolute Auto 5500 /uL (1500-7000); Neutrophils Percent Auto 73.4 % (50-75); Platelet Count 262 X10^3/uL (150-400); Red Blood Cell Count 2.92 X10^6/uL (4.5-5.9); Red Cell Distribution Width 15.5 % (11.6-14.8); White Blood Cell Count 7.5 X10^3/uL (4.5-11.0)
[2023-09-10] MEDS: dexmedeTOMIDine in 0.9 % NaCL 400 MCG/100 ML PLAST..BAG 26 MCG IV ×3 (01:48→11:07)
[2023-09-10] MEDS: propofoL 1,000 MG/100 ML VIAL 12.48 MG IV (04:38)
[2023-09-10 06:31] LABS: Add Manual Diff / Slide Review NO; Basophils Absolute Auto 100 /uL (0-100); Eosinophils Absolute Auto 0 /uL (0-450); Eosinophils Percent Auto 0.3 % (2-4); Hematocrit 25.2 % (41-53); Hemoglobin 8.4 g/dL (13.5-17.5); Lymphocytes Absolute Auto 1200 /uL (1100-4500); Lymphocytes Percent Auto 14.8 % (25-40); Mean Corpuscular HGB Conc 33.3 % (30-36); Mean Corpuscular Hemoglobin 28.6 PG (26-34); Mean Corpuscular Volume 85.8 fL (80-100); Monocytes Absolute Auto 700 /uL (0-900); Monocytes Percent Auto 9.1 % (3-14); Neutrophils Absolute Auto 5900 /uL (1500-7000); Neutrophils Percent Auto 74.8 % (50-75); Platelet Count 261 X10^3/uL (150-400); Red Blood Cell Count 2.94 X10^6/uL (4.5-5.9); Red Cell Distribution Width 15.8 % (11.6-14.8); White Blood Cell Count 7.9 X10^3/uL (4.5-11.0)
[2023-09-10 06:45] LABS: Alanine Aminotransferase 19 IU/L (<50); Albumin 2.7 g/dL (3.5-5.0); Alkaline Phosphatase 45 U/L (38-126); Aspartate Aminotransferase 26 IU/L (17-59); BUN Creatinine Ratio 27.6 (6-22); Blood Urea Nitrogen 27 mg/dL (9-20); Carbon Dioxide 33 mmol/L (22-32); Chloride 97 mmol/L (98-107); Estimated Glomerular Filt Rate > 60 mL/min (>60); Globulin 2.6 g/dL (1.7-4.1); Glucose 86 mg/dL (80-110); HEMOLYSIS < 15 (0-50); Potassium 3.4 mmol/L (3.4-5.1); Sodium 133 mmol/L (137-145); Total Protein 5.3 g/dL (6.3-8.2)
--- NOTE | 2023-09-10 07:17 | PC.NURSE ---
pt's fio2 has been decreased from 70 to 45% and his propofol has been titrated down from 30mcg/kg/min to 15mcg/kg/min in preparation for possible extubation this morning
--- NOTE | 2023-09-10 07:23 | P.TELICUPN_ITS ---
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 but taking rapid shallow breaths despite PSV 12- when asked to take a deep breath, he was able to achieve TV 800 Current Medications Current Medications Medications: Home Medications aspirin 325 mg tablet 325 mg PO .prn 12/01/17 [History Confirmed 09/08/23] amlodipine 5 mg tablet 5 mg PO DAILY #90 tabs 05/05/23 [Rx Confirmed 09/08/23] azelastine 137 mcg (0.1 %) nasal spray aerosol 2 spray intranasal BID #30 mL 05/05/23 [Rx Confirmed 09/08/23] carvedilol 12.5 mg tablet 12.5 mg PO BID #180 tabs 05/05/23 [Rx Confirmed 09/08/23] furosemide 40 mg tablet 40 mg PO DAILY #90 tabs 05/05/23 [Rx Confirmed 09/08/23] pantoprazole 20 mg tablet,delayed release 20 mg PO DAILY #90 tabs 05/05/23 [Rx Confirmed 09/08/23] prednisone 1 mg tablet 1 mg PO DAILY #90 tabs 05/05/23 [Rx Confirmed 09/08/23] hydrocodone 5 mg-acetaminophen 325 mg tablet 1 tab PO Q8H PRN pain #20 tabs 07/07/23 [Rx Confirmed 09/08/23] sertraline 25 mg tablet 25 mg PO .COMPLEX #90 tabs 09/06/23 [Rx Confirmed 09/08/23] Visit Medications (administered) Generic Name Dose Route Start Last Admin Trade Name Freq PRN Reason Stop Dose Admin Chlorhexidine Gluconate 15 ml 09/09/23 12:00 09/10/23 05:28 Chlorhexidine Gluconate 15 Ml Cup PO 15 ml Q6HR JAMILA Administration Fentanyl 36 mcg 09/09/23 07:42 09/09/23 13:33 Fentanyl 100 Mcg/2 Ml Inj 0.35 mcg/kg (36 mcg) 36 mcg IV Administration Q1HR PRN Pain, Severe (7-10) Heparin Sodium (Porcine) 50 unit 09/09/23 10:51 09/09/23 10:56 Heparin Flush (Cl/Picc/Mid-Line) 50 Unit/5 Ml Syringe IV 50 unit PRN PRN Administration Flush Propofol 1,000 mg in 100 mls @ 3.12 mls/hr 09/09/23 07:45 09/10/23 05:30 Propofol IV 15 mcg/kg/min TITRATE JAMILA 9.36 mls/hr Titration Protocol 5 MCG/KG/MIN Sodium Chloride 1,000 mls @ 100 mls/hr 09/09/23 07:45 09/09/23 08:24 Normal Saline 0.9% IV Not Given CONT JAMILA dexmedeTOMIDine in 0.9 % NaCL 400 mcg in 100 mls @ 5.2 mls/hr 09/09/23 11:00 09/10/23 05:28 Precedex IV 1 mcg/kg/hr TITRATE JAMILA 26 mls/hr Administration Protocol 0.2 MCG/KG/HR NOREPINEPHRINE BITARTRATE/D5W 4 mg in 250 mls @ 39 mls/hr 09/09/23 13:15 09/09/23 17:00 Levophed IV 0 mcg/kg/min TITRATE JAMILA 0 mls/hr Titration Protocol 0.1 MCG/KG/MIN Naloxone HCl 0.2 mg 09/08/23 14:47 09/09/23 06:15 Naloxone 0.4 Mg/Ml Vial IV 0.2 mg Q2MIN PRN Administration Opiate Reversal Pantoprazole Sodium 40 mg 09/08/23 16:05 09/09/23 20:52 Pantoprazole 40 Mg Vial IV 40 mg BID JAMILA Administration Objective Ventilator Parameters: Ventilator Settings FiO2 45 RT Vent Frequency 16 Ventilator Tidal Volume 500 Exhaled Vt/kg IBW 7 Positive End Expiratory 5 Pressure Inspiratory Phase Time 0.8 I:E Ratio 1:3.7 Patient Position HOB >= 30 degrees Labs 09/10/23 06:20 09/10/23 06:20 Labs: Laboratory Results - last 24 hr 09/09/23 09/09/23 09/09/23 06:04 06:16 08:00 WBC 10.4 RBC 3.68 L Hgb 10.5 L Hct 32.9 L MCV 89.3 MCH 28.5 MCHC 32.0 RDW 15.4 H Plt Count 347 Neut % (Auto) 82.3 H Lymph % (Auto) 8.6 L [place] % (Auto) 8.0 Eos % (Auto) 0.4 L Baso % (Auto) 0.7 Neut # (Auto) 8600 H Lymph # (Auto) 900 L [place] # (Auto) 800 Eos # (Auto) 0 Baso # (Auto) 100 ABG Sample Site Right radial ABG pH 6.96 L* ABG pCO2 > 130.0 H* ABG pO2 124 H ABG HCO3 < 23 L ABG Total CO2 < 23 L ABG O2 Saturation < 95 L ABG Base Excess < -2.0 L FiO2 90 Sodium 134 L Potassium 4.5 Chloride 93 L Carbon Dioxide 40 H* BUN 22 H Creatinine 1.03 Estimated GFR > 60 BUN/Creatinine Ratio 21.4 Glucose 147 H Calcium 8.4 Total Bilirubin 0.8 AST 35 ALT 29 Alkaline Phosphatase 52 Troponin I 0.021 Total Protein 6.7 Albumin 3.7 Globulin 3.0 Albumin/Globulin Ratio 1.2 Nasal Screen MRSA (PCR) Not detected 09/09/23 09/09/23 09/09/23 09:22 13:50 20:15 WBC RBC Hgb Hct MCV MCH MCHC RDW Plt Count Neut % (Auto) Lymph % (Auto) [place] % (Auto) Eos % (Auto) Baso % (Auto) Neut # (Auto) Lymph # (Auto) [place] # (Auto) Eos # (Auto) Baso # (Auto) ABG Sample Site Right radial ABG pH 7.34 L ABG pCO2 60.2 H ABG pO2 69 L ABG HCO3 33 H ABG Total CO2 34 H ABG O2 Saturation 92 L ABG Base Excess 7.0 H FiO2 70 Sodium Potassium Chloride Carbon Dioxide BUN Creatinine Estimated GFR BUN/Creatinine Ratio Glucose Calcium Total Bilirubin AST ALT Alkaline Phosphatase Troponin I 0.021 0.024 Total Protein Albumin Globulin Albumin/Globulin Ratio Nasal Screen MRSA (PCR) 09/09/23 09/10/23 09/10/23 20:38 00:35 06:20 WBC 7.2 7.5 7.9 RBC 2.95 L 2.92 L 2.94 L Hgb 8.4 L 8.3 L 8.4 L Hct 25.5 L 24.9 L 25.2 L MCV 86.4 85.4 85.8 MCH 28.4 28.3 28.6 MCHC 32.9 33.1 33.3 RDW 15.3 H 15.5 H 15.8 H Plt Count 259 262 261 Neut % (Auto) 72.5 73.4 74.8 Lymph % (Auto) 14.3 L 13.6 L 14.8 L [place] % (Auto) 11.9 11.7 9.1 Eos % (Auto) 0.3 L 0.4 L 0.3 L Baso % (Auto) 1.0 0.9 1.0 Neut # (Auto) 5200 5500 5900 Lymph # (Auto) 1000 L 1000 L 1200 [place] # (Auto) 900 900 700 Eos # (Auto) 0 0 0 Baso # (Auto) 100 100 100 ABG Sample Site ABG pH ABG pCO2 ABG pO2 ABG HCO3 ABG Total CO2 ABG O2 Saturation ABG Base Excess FiO2 Sodium 133 L Potassium 3.4 Chloride 97 L Carbon Dioxide 33 H BUN 27 H Creatinine 0.98 Estimated GFR > 60 BUN/Creatinine Ratio 27.6 H Glucose 86 Calcium 8.0 L Total Bilirubin 1.0 AST 26 ALT 19 Alkaline Phosphatase 45 Troponin I Total Protein 5.3 L Albumin 2.7 L Globulin 2.6 Albumin/Globulin Ratio 1.0 Nasal Screen MRSA (PCR) Exam Vital Signs (past 8 hours): - 09/09/23 23:30 09/09/23 23:30 09/09/23 23:45 Temperature Pulse Rate 76 75 Respiratory Rate 16 16 Blood Pressure 142/64 H Pulse Oximetry 99 96 Oxygen Delivery Method Oxygen Flow Rate 09/09/23 23:45 09/10/23 00:00 09/10/23 00:00 Temperature 98.6 F Pulse Rate 74 Respiratory Rate 16 Blood Pressure 133/62 138/71 Pulse Oximetry 97 Oxygen Delivery Method Oxygen Flow Rate 0 09/10/23 00:15 09/10/23 00:15 09/10/23 00:30 Temperature Pulse Rate 78 79 Respiratory Rate 16 15 Blood Pressure 134/60 Pulse Oximetry 96 96 Oxygen Delivery Method Oxygen Flow Rate 09/10/23 00:30 09/10/23 00:45 09/10/23 00:45 Temperature Pulse Rate 58 L Respiratory Rate 16 Blood Pressure 126/60 118/59 L Pulse Oximetry 97 Oxygen Delivery Method Oxygen Flow Rate 09/10/23 01:00 09/10/23 01:00 09/10/23 01:15 Temperature Pulse Rate 66 74 Respiratory Rate 16 16 Blood Pressure 123/60 Pulse Oximetry 97 97 Oxygen Delivery Method Oxygen Flow Rate 09/10/23 01:15 09/10/23 01:30 09/10/23 01:30 Temperature Pulse Rate 59 L Respiratory Rate 16 Blood Pressure 131/63 138/63 Pulse Oximetry 98 Oxygen Delivery Method Oxygen Flow Rate 09/10/23 01:45 09/10/23 01:45 09/10/23 02:00 Temperature Pulse Rate 57 L 56 L Respiratory Rate 16 16 Blood Pressure 121/60 Pulse Oximetry 98 97 Oxygen Delivery Method Oxygen Flow Rate 09/10/23 02:00 09/10/23 02:15 09/10/23 02:15 Temperature Pulse Rate 60 Respiratory Rate 16 Blood Pressure 136/61 135/63 Pulse Oximetry 96 Oxygen Delivery Method Oxygen Flow Rate 0 09/10/23 02:30 09/10/23 02:30 09/10/23 02:45 Temperature Pulse Rate 60 57 L Respiratory Rate 16 16 Blood Pressure 145/65 H Pulse Oximetry 96 97 Oxygen Delivery Method Oxygen Flow Rate 09/10/23 02:45 09/10/23 03:00 09/10/23 03:00 Temperature Pulse Rate 57 L Respiratory Rate 16 Blood Pressure 143/66 H 138/63 Pulse Oximetry 96 Oxygen Delivery Method Oxygen Flow Rate 09/10/23 03:00 09/10/23 03:15 09/10/23 03:15 Temperature Pulse Rate 57 L Respiratory Rate 16 Blood Pressure 140/69 Pulse Oximetry 96 Oxygen Delivery Method Mechanical Ventilation Oxygen Flow Rate 09/10/23 03:30 09/10/23 03:30 09/10/23 03:45 Temperature Pulse Rate 55 L 58 L Respiratory Rate 16 16 Blood Pressure 162/70 H Pulse Oximetry 97 97 Oxygen Delivery Method Oxygen Flow Rate 09/10/23 03:45 09/10/23 04:00 09/10/23 04:00 Temperature Pulse Rate 56 L Respiratory Rate 13 Blood Pressure 152/67 H 143/73 H Pulse Oximetry 96 Oxygen Delivery Method Oxygen Flow Rate 09/10/23 04:15 09/10/23 04:15 09/10/23 04:30 Temperature Pulse Rate 64 57 L Respiratory Rate 9 L 16 Blood Pressure 139/65 Pulse Oximetry 96 95 Oxygen Delivery Method Oxygen Flow Rate 0 09/10/23 04:30 09/10/23 04:45 09/10/23 04:45 Temperature Pulse Rate 67 Respiratory Rate 16 Blood Pressure 164/74 H 145/73 H Pulse Oximetry 95 Oxygen Delivery Method Oxygen Flow Rate 09/10/23 05:00 09/10/23 05:00 09/10/23 05:15 Temperature Pulse Rate 64 68 Respiratory Rate 16 16 Blood Pressure 156/70 H Pulse Oximetry 95 95 Oxygen Delivery Method Oxygen Flow Rate 0 09/10/23 05:15 09/10/23 05:30 09/10/23 05:30 Temperature Pulse Rate 65 Respiratory Rate 16 Blood Pressure 149/70 H 143/67 H Pulse Oximetry 95 Oxygen Delivery Method Oxygen Flow Rate 09/10/23 05:45 09/10/23 05:45 09/10/23 06:00 Temperature Pulse Rate 54 L 73 Respiratory Rate 16 15 Blood Pressure 151/69 H Pulse Oximetry 95 96 Oxygen Delivery Method Oxygen Flow Rate 09/10/23 06:00 Temperature Pulse Rate Respiratory Rate Blood Pressure 146/72 H Pulse Oximetry Oxygen Delivery Method Oxygen Flow Rate 0 Fraction of Inspired Oxygen 45% SaO2/FiO2 Ratio 303 Oxygen Delivery Method Mechanical Ventilation Oxygen Flow Rate 0 Narrative Exam Narrative: intubated, alert and able to follow commands, give me thumbs up. clearly followed conversation. no distress but shallow breathing Quality TeleICU VTE Deep Vein Thrombosis/Pulmonary Embolism Present on Admission: No Assessment & Plan Assessment and plan (1) Hematoma of right chest wall: Qualifiers: Encounter type: initial encounter Qualified Code(s): S20.211A - Contusion of right front wall of thorax, initial encounter Status: Acute (2) Acute hyponatremia: Status: Acute (3) Hypoxia: Status: Acute (4) Acute blood loss anemia: Status: Acute (5) Hypoxia: Status: Acute (6) Sleep apnea: Qualifiers: Sleep apnea type: obstructive Qualified Code(s): G47.33 - Obstructive sleep apnea (adult) (pediatric) Status: Acute (7) History of tracheostomy: Status: Acute (8) GERD (gastroesophageal reflux disease): Qualifiers: Esophagitis presence: without esophagitis Qualified Code(s): K21.9 - Gastro-esophageal reflux disease without esophagitis Status: Acute Assessment & Plan narrative: 78 year old male admitted to ICU with: AMS acute respiratory failure acute blood loss anemia c/f GIB chest hematoma SUGGEST -neurochecks -CT head negative for acute process. he is awake and following commands today off sedation -maicol plan for precedex sedation today and PRN fentanyl for pain while on PSV trials -- based on his respiratory mechanics on inspiratory pressure of 12 this am he is not ready for extubation- will keep him on PSV as tolerated today and wean down inspiratory pressure as able. if he tires will need to go back on a rate -when ready to extubate with extubate to bipap, has h/o obstruction, required trach in past (records from [facility] -) there are no notes from intubation suggesting he was a difficult airway here -benigno sat/sbt -keep rass 0 to -1 -keep sat above 92% -chest pt/pulm toilet -keep map above 65 -- levophed PRN -serial cbc/coags transfuse blood products prn -surgery following for hematoma, hgb has been stable -ppi bid -GI on board, EGD deferred for now -npo for now, pending extubation - 09/08 RUQ sono- fattly liver- gall stones seen, but no ductal dilation, and no e/o cholecystitis. (see full report) -monitor ins/outs -lasix PRN -replace electrolytes prn -keep glucose 140-180s -gi/dvt ppx scds and ppi BID FULL CODE Time Spent With Patient Time with patient: 30 to 49 minutes with 50% spent counseling/coordinating care
--- NOTE | 2023-09-10 07:41 | P.PN_ITS ---
Subjective Subjective Interval history: Intubated, narrative not obtainable. Stable overnight. Good hemodynamics. FiO2 45, PEEP 5. No pressors. CT brain normal RUQ US fatty liver. Exam Vital Signs (past 8 hours): - 09/09/23 23:45 09/09/23 23:45 09/10/23 00:00 Temperature Pulse Rate 75 Respiratory Rate 16 Blood Pressure 133/62 138/71 Pulse Oximetry 96 Oxygen Delivery Method Oxygen Flow Rate 09/10/23 00:00 09/10/23 00:15 09/10/23 00:15 Temperature 98.6 F Pulse Rate 74 78 Respiratory Rate 16 16 Blood Pressure 134/60 Pulse Oximetry 97 96 Oxygen Delivery Method Oxygen Flow Rate 0 09/10/23 00:30 09/10/23 00:30 09/10/23 00:45 Temperature Pulse Rate 79 58 L Respiratory Rate 15 16 Blood Pressure 126/60 Pulse Oximetry 96 97 Oxygen Delivery Method Oxygen Flow Rate 09/10/23 00:45 09/10/23 01:00 09/10/23 01:00 Temperature Pulse Rate 66 Respiratory Rate 16 Blood Pressure 118/59 L 123/60 Pulse Oximetry 97 Oxygen Delivery Method Oxygen Flow Rate 09/10/23 01:15 09/10/23 01:15 09/10/23 01:30 Temperature Pulse Rate 74 59 L Respiratory Rate 16 16 Blood Pressure 131/63 Pulse Oximetry 97 98 Oxygen Delivery Method Oxygen Flow Rate 09/10/23 01:30 09/10/23 01:45 09/10/23 01:45 Temperature Pulse Rate 57 L Respiratory Rate 16 Blood Pressure 138/63 121/60 Pulse Oximetry 98 Oxygen Delivery Method Oxygen Flow Rate 09/10/23 02:00 09/10/23 02:00 09/10/23 02:15 Temperature Pulse Rate 56 L 60 Respiratory Rate 16 16 Blood Pressure 136/61 Pulse Oximetry 97 96 Oxygen Delivery Method Oxygen Flow Rate 09/10/23 02:15 09/10/23 02:30 09/10/23 02:30 Temperature Pulse Rate 60 Respiratory Rate 16 Blood Pressure 135/63 145/65 H Pulse Oximetry 96 Oxygen Delivery Method Oxygen Flow Rate 0 09/10/23 02:45 09/10/23 02:45 09/10/23 03:00 Temperature Pulse Rate 57 L 57 L Respiratory Rate 16 16 Blood Pressure 143/66 H Pulse Oximetry 97 96 Oxygen Delivery Method Oxygen Flow Rate 09/10/23 03:00 09/10/23 03:00 09/10/23 03:15 Temperature Pulse Rate 57 L Respiratory Rate 16 Blood Pressure 138/63 Pulse Oximetry 96 Oxygen Delivery Method Mechanical Ventilation Oxygen Flow Rate 09/10/23 03:15 09/10/23 03:30 09/10/23 03:30 Temperature Pulse Rate 55 L Respiratory Rate 16 Blood Pressure 140/69 162/70 H Pulse Oximetry 97 Oxygen Delivery Method Oxygen Flow Rate 09/10/23 03:45 09/10/23 03:45 09/10/23 04:00 Temperature Pulse Rate 58 L 56 L Respiratory Rate 16 13 Blood Pressure 152/67 H Pulse Oximetry 97 96 Oxygen Delivery Method Oxygen Flow Rate 09/10/23 04:00 09/10/23 04:15 09/10/23 04:15 Temperature Pulse Rate 64 Respiratory Rate 9 L Blood Pressure 143/73 H 139/65 Pulse Oximetry 96 Oxygen Delivery Method Oxygen Flow Rate 0 09/10/23 04:30 09/10/23 04:30 09/10/23 04:45 Temperature Pulse Rate 57 L 67 Respiratory Rate 16 16 Blood Pressure 164/74 H Pulse Oximetry 95 95 Oxygen Delivery Method Oxygen Flow Rate 09/10/23 04:45 09/10/23 05:00 09/10/23 05:00 Temperature Pulse Rate 64 Respiratory Rate 16 Blood Pressure 145/73 H 156/70 H Pulse Oximetry 95 Oxygen Delivery Method Oxygen Flow Rate 0 09/10/23 05:15 09/10/23 05:15 09/10/23 05:30 Temperature Pulse Rate 68 65 Respiratory Rate 16 16 Blood Pressure 149/70 H Pulse Oximetry 95 95 Oxygen Delivery Method Oxygen Flow Rate 09/10/23 05:30 09/10/23 05:45 09/10/23 05:45 Temperature Pulse Rate 54 L Respiratory Rate 16 Blood Pressure 143/67 H 151/69 H Pulse Oximetry 95 Oxygen Delivery Method Oxygen Flow Rate 09/10/23 06:00 09/10/23 06:00 Temperature Pulse Rate 73 Respiratory Rate 15 Blood Pressure 146/72 H Pulse Oximetry 96 Oxygen Delivery Method Oxygen Flow Rate 0 Fraction of Inspired Oxygen 70 SaO2/FiO2 Ratio 303 Oxygen Delivery Method Mechanical Ventilation Oxygen Flow Rate 0 Narrative Exam Narrative: Intubated. Sedated. ET, R IJ, Rayo Lungs clear anterior Heart regular Abdomen distended. 1-2+ leg edema. Objective Labs 09/10/23 06:20 09/10/23 06:20 Labs: Laboratory Results - last 24 hr 09/09/23 09/09/23 09/09/23 06:16 08:00 09:22 WBC 10.4 RBC 3.68 L Hgb 10.5 L Hct 32.9 L MCV 89.3 MCH 28.5 MCHC 32.0 RDW 15.4 H Plt Count 347 Neut % (Auto) 82.3 H Lymph % (Auto) 8.6 L [place] % (Auto) 8.0 Eos % (Auto) 0.4 L Baso % (Auto) 0.7 Neut # (Auto) 8600 H Lymph # (Auto) 900 L [place] # (Auto) 800 Eos # (Auto) 0 Baso # (Auto) 100 ABG Sample Site Right radial ABG pH 7.34 L ABG pCO2 60.2 H ABG pO2 69 L ABG HCO3 33 H ABG Total CO2 34 H ABG O2 Saturation 92 L ABG Base Excess 7.0 H FiO2 70 Sodium 134 L Potassium 4.5 Chloride 93 L Carbon Dioxide 40 H* BUN 22 H Creatinine 1.03 Estimated GFR > 60 BUN/Creatinine Ratio 21.4 Glucose 147 H Calcium 8.4 Total Bilirubin 0.8 AST 35 ALT 29 Alkaline Phosphatase 52 Troponin I 0.021 Total Protein 6.7 Albumin 3.7 Globulin 3.0 Albumin/Globulin Ratio 1.2 Nasal Screen MRSA (PCR) Not detected 09/09/23 09/09/23 09/09/23 13:50 20:15 20:38 WBC 7.2 RBC 2.95 L Hgb 8.4 L Hct 25.5 L MCV 86.4 MCH 28.4 MCHC 32.9 RDW 15.3 H Plt Count 259 Neut % (Auto) 72.5 Lymph % (Auto) 14.3 L [place] % (Auto) 11.9 Eos % (Auto) 0.3 L Baso % (Auto) 1.0 Neut # (Auto) 5200 Lymph # (Auto) 1000 L [place] # (Auto) 900 Eos # (Auto) 0 Baso # (Auto) 100 ABG Sample Site ABG pH ABG pCO2 ABG pO2 ABG HCO3 ABG Total CO2 ABG O2 Saturation ABG Base Excess FiO2 Sodium Potassium Chloride Carbon Dioxide BUN Creatinine Estimated GFR BUN/Creatinine Ratio Glucose Calcium Total Bilirubin AST ALT Alkaline Phosphatase Troponin I 0.021 0.024 Total Protein Albumin Globulin Albumin/Globulin Ratio Nasal Screen MRSA (PCR) 09/10/23 09/10/23 00:35 06:20 WBC 7.5 7.9 RBC 2.92 L 2.94 L Hgb 8.3 L 8.4 L Hct 24.9 L 25.2 L MCV 85.4 85.8 MCH 28.3 28.6 MCHC 33.1 33.3 RDW 15.5 H 15.8 H Plt Count 262 261 Neut % (Auto) 73.4 74.8 Lymph % (Auto) 13.6 L 14.8 L [place] % (Auto) 11.7 9.1 Eos % (Auto) 0.4 L 0.3 L Baso % (Auto) 0.9 1.0 Neut # (Auto) 5500 5900 Lymph # (Auto) 1000 L 1200 [place] # (Auto) 900 700 Eos # (Auto) 0 0 Baso # (Auto) 100 100 ABG Sample Site ABG pH ABG pCO2 ABG pO2 ABG HCO3 ABG Total CO2 ABG O2 Saturation ABG Base Excess FiO2 Sodium 133 L Potassium 3.4 Chloride 97 L Carbon Dioxide 33 H BUN 27 H Creatinine 0.98 Estimated GFR > 60 BUN/Creatinine Ratio 27.6 H Glucose 86 Calcium 8.0 L Total Bilirubin 1.0 AST 26 ALT 19 Alkaline Phosphatase 45 Troponin I Total Protein 5.3 L Albumin 2.7 L Globulin 2.6 Albumin/Globulin Ratio 1.0 Nasal Screen MRSA (PCR) [facility] Medical History SOB (shortness of breath) GERD (gastroesophageal reflux disease) Meralgia paresthetica, left lower limb Obesity GERD without esophagitis Dysphonia Carpal tunnel syndrome, left upper limb Osteoarthritis HTN (hypertension) Surgical History History of appendectomy History of ankle fusion History of left knee replacement History of tracheostomy History of total left knee replacement History of appendectomy Family History Other Hypertension Social History marital status: household members: spouse Smoking Status: Former smoker alcohol intake: current substance use type: marijuana Assessment & Plan Assessment & Plan narrative: 1. Acute hypoxic and hypercarbic respiratory failure, new and improved. 2. Acute pulmonary edema, new and improved. 3. Acute blood loss anemia, present on admission and active, stable. 4. Large right chest hematoma from contusion and fall. Present on admission and stable. 5. Presumed upper GI bleed with melena, present on admission and active. Defer EGD. 6. Acute hypoxic respiratory failure, present on admission and active. 7. GERD, present on admission and active. 8. 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 9. 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 10. Probable acute on chronic heart failure with hypervolemic hyponatremia in leg edema, present on admission and active. Plan: (Intubated) -Vent support + SBT and sedation vacation -Lasix this AM x 1. -eICU consult (called) -GI and DVT prophylaxis -ECHO -delay EGD -IV Protonix 40 b.i.d. for probable gastric or duodenal ulcer with bleeding. -trend hemoglobin, blood as needed. He is full resuscitation, confirmed time of admission. Full LOC. His is proxy decision maker. I personally provided 60 minutes of total critical care time on direct and indirect patient care activities on the date of this encounter, exclusive of time spent on other separately reportable services/procedures. Quality VTE Deep Vein Thrombosis/Pulmonary Embolism Present on Admission: No
[2023-09-10] MEDS: PANTOPRAZOLE 40 MG VIAL IV ×2 (08:06→20:00)
[2023-09-10] MEDS: fentaNYL 100 MCG/2 ML INJ 36 MCG IV (09:50)
--- NOTE | 2023-09-10 10:30 | PC.NURSE ---
Patient passed SAT and SBT. Awake, alert, following commands appropriately. Requiring 12/5 pressure support and FIO2 45%. Per Dr Killian, extubation unlikely, monitor patient on pressure support while weaning down and reassess later in the day. Patient understands plan. Communicating as best as possible with white board and hand gestures. Pain and patient needs addressed.
[2023-09-10] MEDS: POTASSIUM CHLORIDE IN WATER 10 MEQ/100 ML PIGGYBACK 100 MEQ IV ×2 (10:39→12:30)
[2023-09-10] MEDS: FUROSEMIDE 20 MG/2 ML VIAL IV (11:08)
--- NOTE | 2023-09-10 12:07 | CM.DPC ---
DCP Cont Reviewed chart. Patient discussed in multidisciplinary rounds. Possible attempt to extubate today or tomorrow. According to RN note, patient awake, alert and following commands. CM team continues to follow clinical course closely. Discharge needs still TBD. JW
[2023-09-10] MEDS: propofoL 1,000 MG/100 ML VIAL 18.72 MG IV ×3 (13:07→23:57)
--- NOTE | 2023-09-10 14:10 | DIET.CONS2 ---
Dietary Inpatient Consultation Note Admission Date: 09/08/2023 13:34 Nutrition f/u. Plans to attempt to extubate today or tomorrow per healthcare team rounds. If patient is unable to extubate by Wednesday, consider enteral feedings as medically appropriate, of Pivot 1.5 starting at 20 mL/hr. Will continue to monitor. Diet: 09/09/23 00:01 NPO Diet Diet Modifications: NPO Type: NPO except for Ice Chips Electronically Signed by: Reyna Casey 09/10/23 14:10 Clinical Dietitian [address] [id number]
[2023-09-10] MEDS: dexmedeTOMIDine in 0.9 % NaCL 400 MCG/100 ML PLAST..BAG 13 MCG IV ×2 (15:19→22:56)
--- NOTE | 2023-09-10 20:12 | PM.ICURNDS ---
- Date Patient Seen: 09/10/23 Time Patient Seen: 20:12 :: This patient was seen via real time interactive two-way audiovisual telecommunication. Note: Patient failed SBT due to tachypnea. Remains sedated with propofol and precedex. Will continue titrating down sedation to seek RASS goal -1 to 0. Plan for daily SAT and SBT. D/w bedside RN.
[2023-09-11] VITALS (117 sets, daily range): BP systolic 79–157; BP diastolic 41–81; PULSE 49–102; RESP 4–44; TEMP 36.4–38.8; O2SAT 89–100
[2023-09-11] MEDS: propofoL 1,000 MG/100 ML VIAL 18.72 MG IV (04:14)
[2023-09-11] MEDS: CHLORHEXIDINE GLUCONATE 15 ML CUP PO ×4 (06:07→23:50)
[2023-09-11] MEDS: dexmedeTOMIDine in 0.9 % NaCL 400 MCG/100 ML PLAST..BAG 13 MCG IV ×3 (06:18→22:55)
[2023-09-11] MEDS: SODIUM CHLORIDE 0.9% 1,000 ML 100 ML IV (07:29)
--- NOTE | 2023-09-11 07:55 | PM.PN.1 ---
Subjective Subjective Interval history: Patient is intubated, narrative not obtainable. And transient bradycardia and hypotension. This happened around 8:00 a.m. Exam Vital Signs (past 8 hours): - 09/11/23 00:00 09/11/23 00:00 09/11/23 00:15 Temperature 99.4 F Pulse Rate 84 83 Respiratory Rate 16 16 Blood Pressure 95/55 L Pulse Oximetry 94 95 Oxygen Delivery Method Oxygen Flow Rate 09/11/23 00:15 09/11/23 00:30 09/11/23 00:30 Temperature Pulse Rate 84 Respiratory Rate 16 Blood Pressure 105/59 L 101/57 L Pulse Oximetry 94 Oxygen Delivery Method Oxygen Flow Rate 0 09/11/23 00:45 09/11/23 00:45 09/11/23 01:00 Temperature Pulse Rate 84 71 Respiratory Rate 16 16 Blood Pressure 108/56 L Pulse Oximetry 95 93 Oxygen Delivery Method Oxygen Flow Rate 0 09/11/23 01:00 09/11/23 01:15 09/11/23 01:15 Temperature Pulse Rate 79 Respiratory Rate 16 Blood Pressure 102/53 L 99/55 L Pulse Oximetry 93 Oxygen Delivery Method Oxygen Flow Rate 09/11/23 01:30 09/11/23 01:30 09/11/23 01:45 Temperature Pulse Rate 70 74 Respiratory Rate 16 16 Blood Pressure 113/56 L Pulse Oximetry 92 93 Oxygen Delivery Method Oxygen Flow Rate 09/11/23 01:45 09/11/23 02:00 09/11/23 02:00 Temperature Pulse Rate 74 Respiratory Rate 16 Blood Pressure 109/53 L 109/56 L Pulse Oximetry 92 Oxygen Delivery Method Oxygen Flow Rate 0 09/11/23 02:15 09/11/23 02:15 09/11/23 02:30 Temperature Pulse Rate 69 71 Respiratory Rate 17 16 Blood Pressure 112/58 L Pulse Oximetry 93 92 Oxygen Delivery Method Oxygen Flow Rate 09/11/23 02:30 09/11/23 02:45 09/11/23 02:45 Temperature Pulse Rate 68 Respiratory Rate 16 Blood Pressure 108/53 L 106/51 L Pulse Oximetry 93 Oxygen Delivery Method Oxygen Flow Rate 09/11/23 03:00 09/11/23 03:00 09/11/23 03:00 Temperature Pulse Rate 73 Respiratory Rate 16 Blood Pressure 103/52 L Pulse Oximetry 92 Oxygen Delivery Method Mechanical Ventilation Oxygen Flow Rate 09/11/23 03:15 09/11/23 03:15 09/11/23 03:30 Temperature Pulse Rate 68 69 Respiratory Rate 16 31 H Blood Pressure 103/55 L Pulse Oximetry 93 92 Oxygen Delivery Method Oxygen Flow Rate 0 09/11/23 03:30 09/11/23 03:45 09/11/23 03:45 Temperature Pulse Rate 73 Respiratory Rate Blood Pressure 98/57 L 102/58 L Pulse Oximetry 94 Oxygen Delivery Method Oxygen Flow Rate 09/11/23 04:00 09/11/23 04:00 09/11/23 04:15 Temperature 98.9 F Pulse Rate 68 76 Respiratory Rate 16 16 Blood Pressure 97/53 L Pulse Oximetry 95 96 Oxygen Delivery Method Oxygen Flow Rate 0 09/11/23 04:15 09/11/23 04:30 09/11/23 04:30 Temperature Pulse Rate 83 Respiratory Rate 16 Blood Pressure 105/56 L 97/48 L Pulse Oximetry 94 Oxygen Delivery Method Oxygen Flow Rate 09/11/23 04:45 09/11/23 04:45 09/11/23 05:00 Temperature Pulse Rate 74 81 Respiratory Rate 16 16 Blood Pressure 91/52 L Pulse Oximetry 95 95 Oxygen Delivery Method Oxygen Flow Rate 09/11/23 05:00 09/11/23 05:15 09/11/23 05:15 Temperature Pulse Rate 80 Respiratory Rate 16 Blood Pressure 103/51 L 93/54 L Pulse Oximetry 93 Oxygen Delivery Method Oxygen Flow Rate 0 09/11/23 05:30 09/11/23 05:30 09/11/23 05:45 Temperature Pulse Rate 83 81 Respiratory Rate 16 16 Blood Pressure 94/51 L Pulse Oximetry 93 92 Oxygen Delivery Method Oxygen Flow Rate 09/11/23 05:45 09/11/23 06:00 09/11/23 06:00 Temperature Pulse Rate 72 Respiratory Rate 16 Blood Pressure 102/54 L 108/54 L Pulse Oximetry 93 Oxygen Delivery Method Oxygen Flow Rate 0 Fraction of Inspired Oxygen 70 SaO2/FiO2 Ratio 303 Oxygen Delivery Method Mechanical Ventilation Oxygen Flow Rate 0 Narrative Exam Narrative: Intubated. Sedated. ET, R IJ, Rayo Lungs clear anterior Heart regular Abdomen distended. 1-2+ leg edema. Objective Labs 09/11/23 07:45 09/11/23 07:45 [facility] Medical History SOB (shortness of breath) GERD (gastroesophageal reflux disease) Meralgia paresthetica, left lower limb Obesity GERD without esophagitis Dysphonia Carpal tunnel syndrome, left upper limb Osteoarthritis HTN (hypertension) Surgical History History of appendectomy History of ankle fusion History of left knee replacement History of tracheostomy History of total left knee replacement History of appendectomy Family History Other Hypertension Social History marital status: household members: spouse Smoking Status: Former smoker alcohol intake: current substance use type: marijuana Assessment & Plan Assessment & Plan narrative: 1. Acute hypoxic and hypercarbic respiratory failure, new and improved. 2. Acute pulmonary edema, new and improved. 3. Acute blood loss anemia, present on admission and active, stable. 4. Large right chest hematoma from contusion and fall. Present on admission and stable. 5. Presumed upper GI bleed with melena, present on admission and active. Defer EGD. 6. Acute hypoxic respiratory failure, present on admission and active. 7. GERD, present on admission and active. 8. 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 9. 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 10. Probable acute on chronic heart failure with hypervolemic hyponatremia in leg edema, present on admission and active. Plan: (Intubated) -Vent support + SBT (did well 09/09) and sedation vacation -Lasix this AM x 1 again this AM. -eICU consult (called), appreciate input. -GI and DVT prophylaxis continues -ECHO -delay EGD (until stabilized) -IV Protonix 40 b.i.d. for probable gastric or duodenal ulcer with bleeding. -trend hemoglobin, blood as needed. Stable. Possible extubation today. He may be a CO2 retainer. -we will add a chest x-ray now, and norepinephrine standby for recurrent hypotension. Proceed with sedation vacation and SBT. He is full resuscitation, confirmed time of admission. Full LOC. His is proxy decision maker. 45 min critical care time spent. Quality VTE Deep Vein Thrombosis/Pulmonary Embolism Present on Admission: No
[2023-09-11 07:56] LABS: Add Manual Diff / Slide Review NO; Basophils Absolute Auto 100 /uL (0-100); Basophils Percent Auto 0.7 % (0-2); Eosinophils Absolute Auto 0 /uL (0-450); Eosinophils Percent Auto 0.1 % (2-4); Hemoglobin 8.4 g/dL (13.5-17.5); Lymphocytes Absolute Auto 1000 /uL (1100-4500); Lymphocytes Percent Auto 8.6 % (25-40); Mean Corpuscular HGB Conc 32.3 % (30-36); Mean Corpuscular Hemoglobin 28.1 PG (26-34); Mean Corpuscular Volume 86.9 fL (80-100); Monocytes Absolute Auto 800 /uL (0-900); Monocytes Percent Auto 7.3 % (3-14); Neutrophils Absolute Auto 9600 /uL (1500-7000); Neutrophils Percent Auto 83.3 % (50-75); Platelet Count 240 X10^3/uL (150-400); Red Blood Cell Count 2.99 X10^6/uL (4.5-5.9); Red Cell Distribution Width 16.2 % (11.6-14.8); White Blood Cell Count 11.5 X10^3/uL (4.5-11.0)
[2023-09-11 08:07] LABS: Alanine Aminotransferase 15 IU/L (<50); Albumin 2.6 g/dL (3.5-5.0); Alkaline Phosphatase 41 U/L (38-126); Aspartate Aminotransferase 23 IU/L (17-59); Bilirubin Total 1.4 mg/dL (0.2-1.3); Blood Urea Nitrogen 27 mg/dL (9-20); Calcium 7.7 mg/dL (8.4-10.2); Carbon Dioxide 32 mmol/L (22-32); Chloride 99 mmol/L (98-107); Estimated Glomerular Filt Rate > 60 mL/min (>60); Globulin 2.7 g/dL (1.7-4.1); Glucose 87 mg/dL (80-110); HEMOLYSIS < 15 (0-50); Potassium 3.1 mmol/L (3.4-5.1); Sodium 134 mmol/L (137-145); Total Protein 5.3 g/dL (6.3-8.2)
--- NOTE | 2023-09-11 08:21 | DI.RAD.S_ITS ---
PROCEDURE: XR CHEST 1V INDICATIONS: Dyspnea TECHNIQUE: One view of the chest was acquired. COMPARISON: [facility], CR, XR CHEST 1V, 09/09/2023, 6:23. [facility], CR, XR CHEST 1V, 09/09/2023, 8:53. [facility], CR, XR CHEST 1V, 09/09/2023, 9:45. FINDINGS: Surgical changes and devices: An endotracheal tube is seen, with the tip 6 cm above the abdi. A gastric tube is seen, tip not well visualized, yet protrudes slightly into stomach. A stable right central line is seen, with the tip overlying the superior aspect of the superior vena cava. Lungs and pleura: On this semiupright portable chest examination, no large pneumothorax or large pleural effusions are seen. No focal infiltrates are seen. Low lung volumes are noted. This causes a crowded appearance to the lung markings and limits evaluation. Mediastinum: Mediastinal contours appear normal. Heart size is normal. Atherosclerotic calcification of the aortic arch is noted. Bones and chest wall: No suspicious bony lesions. Age-appropriate bony degenerative changes are seen. Overlying soft tissues appear unremarkable. IMPRESSION: The tip the endotracheal tube is seen 6 cm above the abdi. Low lung volumes, without focal infiltrates. Dictated by: Ervin Meyers M.D. on 09/11/2023 at 8:01 Approved by: Ervin Meyers M.D. on 09/11/2023 at 8:04
[2023-09-11] MEDS: FUROSEMIDE 20 MG/2 ML VIAL IV ×2 (08:32→19:00)
[2023-09-11] MEDS: PANTOPRAZOLE 40 MG VIAL IV ×2 (08:32→20:31)
[2023-09-11 08:45] LABS: Magnesium 1.9 mg/dL (1.6-2.3)
[2023-09-11] MEDS: NOREPINEPHRINE BITARTRATE/D5W 4 MG/250 ML PLAST..BAG 19.5 MG IV (09:03)
[2023-09-11] MEDS: POTASSIUM CHLORIDE IN WATER 10 MEQ/100 ML PIGGYBACK 100 MEQ IV ×4 (09:24→12:47)
[2023-09-11] MEDS: ACETAMINOPHEN 325 MG TABLET 650 MG PO ×2 (10:10→17:51)
[2023-09-11] MEDS: PIPERACILLIN/TAZO 3.375 GM in SODIUM CHLORIDE 0.9% 100 ML IV ×2 (11:06→17:31)
--- NOTE | 2023-09-11 11:49 | PC.NURSE ---
Addendum entered by Ani Purdy R.N. 09/11/23 16:17: NS stopped in am per tele-[employer] order. Addendum entered by Ani Purdy R.N. 09/11/23 14:55: Advanced OG tube 8cm per telephone read back order from Dr. Villarreal. Original Note: In am before 0930 rounds, pt had episodes of hypotension and bradycardia. BP dropped to MAP high 50s/low 60s (less than 65) and HR dropped to high 40s/low 50s. Hospitalist contacted and levophed ordered by hospitalist. Pt had several more episodes of bradycardia and hypotension while RN was weaning propofol. Levophed started but then stopped as pt BP and HR would periodically rebound to MAP >65 and HR 80s. In am rounds, RN brought up the hemodynamic instability and server systems administrator said ok to continue with weaning propofol and SAT/SBT. Upon weaning propofol down to about 5-10, pt had no more episodes of hemodynamic instability, including during SAT/SBT. RN assessed temperature several times using temporal and axillary and reported fever to server systems administrator, tylenol administered through OG (provider okayed based on am chest xray). Provider ordered blood cultures - RN administered antibiotics after blood cultures drawn. Pt still running a fever after reassessment, RN removed sheets, extra pillows and placed ice packs in groin, arm pits, and behind neck; placed cool towel on pt's forehead and a fan onto patient. Noon blood glucose 89, RN called and messaged assembler camper regarding starting tube feeds.
[2023-09-11] MEDS: propofoL 1,000 MG/100 ML VIAL 3.12 MG IV (11:53)
--- NOTE | 2023-09-11 13:26 | P.TELICUPN_ITS ---
Subjective Subjective IF CAMERA ACTIVATED, patient seen via real-time interactive audiovisual communication: Camera activated Consent obtained for tele-second operator care: Yes Patient Location: ICU Provider location (State): [place] Other participants/roles: rn Interval history: pt remains intubated/sedated. failed SBT today Current Medications Current Medications Medications: Home Medications aspirin 325 mg tablet 325 mg PO .prn 12/01/17 [History Confirmed 09/08/23] amlodipine 5 mg tablet 5 mg PO DAILY #90 tabs 05/05/23 [Rx Confirmed 09/08/23] azelastine 137 mcg (0.1 %) nasal spray aerosol 2 spray intranasal BID #30 mL 05/05/23 [Rx Confirmed 09/08/23] carvedilol 12.5 mg tablet 12.5 mg PO BID #180 tabs 05/05/23 [Rx Confirmed 09/08/23] furosemide 40 mg tablet 40 mg PO DAILY #90 tabs 05/05/23 [Rx Confirmed 09/08/23] pantoprazole 20 mg tablet,delayed release 20 mg PO DAILY #90 tabs 05/05/23 [Rx Confirmed 09/08/23] prednisone 1 mg tablet 1 mg PO DAILY #90 tabs 05/05/23 [Rx Confirmed 09/08/23] hydrocodone 5 mg-acetaminophen 325 mg tablet 1 tab PO Q8H PRN pain #20 tabs 07/07/23 [Rx Confirmed 09/08/23] sertraline 25 mg tablet 25 mg PO .COMPLEX #90 tabs 09/06/23 [Rx Confirmed 09/08/23] Visit Medications (administered) Generic Name Dose Route Start Last Admin Trade Name Freq PRN Reason Stop Dose Admin Acetaminophen 650 mg 09/08/23 14:47 09/11/23 10:10 Acetaminophen 325 Mg Tablet PO 650 mg Q6H PRN Administration Fever/Mild Pain (1-3) Chlorhexidine Gluconate 15 ml 09/09/23 12:00 09/11/23 11:08 Chlorhexidine Gluconate 15 Ml Cup PO 15 ml Q6HR JAMILA Administration Fentanyl 36 mcg 09/09/23 07:42 09/10/23 09:50 Fentanyl 100 Mcg/2 Ml Inj 0.35 mcg/kg (36 mcg) 36 mcg IV Administration Q1HR PRN Pain, Severe (7-10) Heparin Sodium (Porcine) 50 unit 09/09/23 10:51 09/09/23 10:56 Heparin Flush (Cl/Picc/Mid-Line) 50 Unit/5 Ml Syringe IV 50 unit PRN PRN Administration Flush Propofol 1,000 mg in 100 mls @ 3.12 mls/hr 09/09/23 07:45 09/11/23 13:02 Propofol IV 20 mcg/kg/min TITRATE JAMILA 12.48 mls/hr Titration Protocol 5 MCG/KG/MIN Sodium Chloride 1,000 mls @ 100 mls/hr 09/09/23 07:45 09/11/23 09:57 Normal Saline 0.9% IV 0 mls/hr CONT JAMILA Infusion dexmedeTOMIDine in 0.9 % NaCL 400 mcg in 100 mls @ 5.2 mls/hr 09/09/23 11:00 09/11/23 11:36 Precedex IV 0.5 mcg/kg/hr TITRATE JAMILA 13 mls/hr Titration Protocol 0.2 MCG/KG/HR NOREPINEPHRINE BITARTRATE/D5W 4 mg in 250 mls @ 39 mls/hr 09/09/23 13:15 09/11/23 12:52 Levophed IV 0.025 mcg/kg/min TITRATE JAMILA 9.75 mls/hr Titration Protocol 0.1 MCG/KG/MIN Piperacillin Sod/Tazobactam 100 mls @ 25 mls/hr 09/11/23 10:30 09/11/23 11:06 Sod 3.375 gm/ Sodium Chloride IV 25 mls/hr Q8H JAMILA Administration Naloxone HCl 0.2 mg 09/08/23 14:47 09/09/23 06:15 Naloxone 0.4 Mg/Ml Vial IV 0.2 mg Q2MIN PRN Administration Opiate Reversal Pantoprazole Sodium 40 mg 09/08/23 16:05 09/11/23 08:32 Pantoprazole 40 Mg Vial IV 40 mg BID JAMILA Administration Objective Ventilator Parameters: Ventilator Settings Pressure Control 35 FiO2 40 RT Vent Frequency 0 Ventilator Tidal Volume 0 Exhaled Vt/kg IBW 7 Positive End Expiratory 5 Pressure Ventilator Pressure Support 10 Inspiratory Phase Time 0.80 I:E Ratio 1:3.7 Patient Position HOB >= 30 degrees Labs 09/11/23 07:45 09/11/23 07:45 Labs: Laboratory Results - last 24 hr 09/11/23 07:45 WBC 11.5 H RBC 2.99 L Hgb 8.4 L Hct 26.0 L MCV 86.9 MCH 28.1 MCHC 32.3 RDW 16.2 H Plt Count 240 Neut % (Auto) 83.3 H Lymph % (Auto) 8.6 L [place] % (Auto) 7.3 Eos % (Auto) 0.1 L Baso % (Auto) 0.7 Neut # (Auto) 9600 H Lymph # (Auto) 1000 L [place] # (Auto) 800 Eos # (Auto) 0 Baso # (Auto) 100 Sodium 134 L Potassium 3.1 L Chloride 99 Carbon Dioxide 32 BUN 27 H Creatinine 1.00 Estimated GFR > 60 BUN/Creatinine Ratio 27.0 H Glucose 87 Calcium 7.7 L Magnesium 1.9 Total Bilirubin 1.4 H AST 23 ALT 15 Alkaline Phosphatase 41 Total Protein 5.3 L Albumin 2.6 L Globulin 2.7 Albumin/Globulin Ratio 1.0 Exam Vital Signs (past 8 hours): - 09/11/23 05:30 09/11/23 05:30 09/11/23 05:45 Temperature Pulse Rate 83 81 Respiratory Rate 16 16 Blood Pressure 94/51 L Pulse Oximetry 93 92 Oxygen Delivery Method Oxygen Flow Rate 09/11/23 05:45 09/11/23 06:00 09/11/23 06:00 Temperature Pulse Rate 72 Respiratory Rate 16 Blood Pressure 102/54 L 108/54 L Pulse Oximetry 93 Oxygen Delivery Method Oxygen Flow Rate 0 09/11/23 06:15 09/11/23 06:15 09/11/23 06:30 Temperature Pulse Rate 79 67 Respiratory Rate 17 22 Blood Pressure 108/53 L Pulse Oximetry 97 99 Oxygen Delivery Method Oxygen Flow Rate 09/11/23 06:30 09/11/23 06:45 09/11/23 06:45 Temperature Pulse Rate 84 Respiratory Rate 20 Blood Pressure 108/51 L 116/58 L Pulse Oximetry 99 Oxygen Delivery Method Oxygen Flow Rate 09/11/23 07:00 09/11/23 07:00 09/11/23 07:00 Temperature Pulse Rate 80 Respiratory Rate 17 Blood Pressure 108/55 L Pulse Oximetry 97 Oxygen Delivery Method Mechanical Ventilation Oxygen Flow Rate 09/11/23 07:15 09/11/23 07:15 09/11/23 07:30 Temperature Pulse Rate 81 80 Respiratory Rate 20 20 Blood Pressure 105/53 L Pulse Oximetry 98 99 Oxygen Delivery Method Oxygen Flow Rate 09/11/23 07:30 09/11/23 07:45 09/11/23 07:45 Temperature Pulse Rate 71 Respiratory Rate 26 H Blood Pressure 116/56 L 98/51 L Pulse Oximetry 94 Oxygen Delivery Method Oxygen Flow Rate 09/11/23 08:00 09/11/23 08:00 09/11/23 08:15 Temperature Pulse Rate 81 51 L Respiratory Rate 17 17 Blood Pressure 112/58 L Pulse Oximetry 95 95 Oxygen Delivery Method Oxygen Flow Rate 09/11/23 08:15 09/11/23 08:18 09/11/23 08:18 Temperature Pulse Rate 49 L Respiratory Rate 14 Blood Pressure 85/49 L 84/47 L Pulse Oximetry 94 Oxygen Delivery Method Oxygen Flow Rate 09/11/23 08:20 09/11/23 08:20 09/11/23 08:22 Temperature Pulse Rate 50 L 51 L Respiratory Rate 10 L 32 H Blood Pressure 84/41 L Pulse Oximetry 99 100 Oxygen Delivery Method Oxygen Flow Rate 09/11/23 08:22 09/11/23 08:25 09/11/23 08:25 Temperature Pulse Rate 72 Respiratory Rate 32 H Blood Pressure 102/53 L 125/60 Pulse Oximetry 98 Oxygen Delivery Method Oxygen Flow Rate 09/11/23 08:30 09/11/23 08:30 09/11/23 08:35 Temperature Pulse Rate 55 L Respiratory Rate 33 H Blood Pressure 98/48 L 94/47 L Pulse Oximetry 95 Oxygen Delivery Method Oxygen Flow Rate 09/11/23 08:35 09/11/23 08:45 09/11/23 08:45 Temperature Pulse Rate 52 L 52 L Respiratory Rate 18 23 Blood Pressure 81/42 L Pulse Oximetry 95 93 Oxygen Delivery Method Oxygen Flow Rate 09/11/23 08:51 09/11/23 08:51 09/11/23 09:00 Temperature Pulse Rate 58 L 52 L Respiratory Rate 19 21 Blood Pressure 110/54 L Pulse Oximetry 95 Oxygen Delivery Method Oxygen Flow Rate 09/11/23 09:00 09/11/23 09:07 09/11/23 09:07 Temperature Pulse Rate 54 L Respiratory Rate 24 Blood Pressure 89/45 L 97/50 L Pulse Oximetry 91 Oxygen Delivery Method Oxygen Flow Rate 09/11/23 09:10 09/11/23 09:10 09/11/23 09:20 Temperature Pulse Rate 52 L Respiratory Rate 24 Blood Pressure 99/49 L 103/51 L Pulse Oximetry 92 Oxygen Delivery Method Oxygen Flow Rate 09/11/23 09:20 09/11/23 09:30 09/11/23 09:30 Temperature Pulse Rate 52 L 77 Respiratory Rate 20 21 Blood Pressure 109/55 L Pulse Oximetry 92 93 Oxygen Delivery Method Oxygen Flow Rate 09/11/23 09:40 09/11/23 09:40 09/11/23 09:51 Temperature Pulse Rate 80 92 H Respiratory Rate 19 Blood Pressure 99/54 L Pulse Oximetry 94 91 Oxygen Delivery Method Oxygen Flow Rate 09/11/23 09:51 09/11/23 10:00 09/11/23 10:06 Temperature 99.4 F Pulse Rate 76 Respiratory Rate 37 H Blood Pressure 97/51 L Pulse Oximetry 92 Oxygen Delivery Method Oxygen Flow Rate 09/11/23 10:06 09/11/23 10:07 09/11/23 10:09 Temperature 101.9 F H 101.9 F H Pulse Rate 98 H Respiratory Rate 36 H Blood Pressure Pulse Oximetry 92 Oxygen Delivery Method Oxygen Flow Rate 09/11/23 10:09 09/11/23 10:10 09/11/23 10:20 Temperature 101.9 F H Pulse Rate 96 H Respiratory Rate 33 H Blood Pressure 131/60 Pulse Oximetry Oxygen Delivery Method Oxygen Flow Rate 09/11/23 10:20 09/11/23 10:30 09/11/23 10:40 Temperature 101.1 F H Pulse Rate 94 H Respiratory Rate 44 H Blood Pressure 124/59 L Pulse Oximetry 91 Oxygen Delivery Method Oxygen Flow Rate 09/11/23 10:40 09/11/23 10:40 09/11/23 11:00 Temperature Pulse Rate 98 H Respiratory Rate 34 H Blood Pressure 111/55 L Pulse Oximetry 93 Oxygen Delivery Method Mechanical Ventilation Oxygen Flow Rate 09/11/23 11:00 09/11/23 11:00 09/11/23 11:20 Temperature Pulse Rate 100 H 101 H Respiratory Rate 37 H 42 H Blood Pressure 114/52 L Pulse Oximetry 93 91 Oxygen Delivery Method Oxygen Flow Rate 09/11/23 11:20 09/11/23 11:30 09/11/23 11:45 Temperature Pulse Rate 102 H 98 H Respiratory Rate 43 H Blood Pressure 108/52 L Pulse Oximetry 99 93 Oxygen Delivery Method Oxygen Flow Rate 09/11/23 11:45 09/11/23 12:00 09/11/23 12:00 Temperature Pulse Rate 97 H Respiratory Rate 28 H Blood Pressure 103/48 L 96/55 L Pulse Oximetry 94 Oxygen Delivery Method Oxygen Flow Rate 09/11/23 12:18 09/11/23 12:18 09/11/23 12:19 Temperature Pulse Rate 94 H 93 H Respiratory Rate 25 H 24 Blood Pressure 84/47 L Pulse Oximetry 89 L 89 L Oxygen Delivery Method Oxygen Flow Rate 09/11/23 12:19 09/11/23 12:20 09/11/23 12:20 Temperature Pulse Rate 93 H Respiratory Rate 23 Blood Pressure 79/45 L 87/48 L Pulse Oximetry 89 L Oxygen Delivery Method Oxygen Flow Rate 09/11/23 12:28 09/11/23 12:30 09/11/23 12:30 Temperature 100.2 F H Pulse Rate 80 Respiratory Rate 28 H Blood Pressure 157/67 H Pulse Oximetry 93 Oxygen Delivery Method Oxygen Flow Rate 09/11/23 12:33 09/11/23 12:33 09/11/23 12:40 Temperature Pulse Rate 85 90 Respiratory Rate 28 H 26 H Blood Pressure 121/58 L Pulse Oximetry 92 91 Oxygen Delivery Method Oxygen Flow Rate 09/11/23 12:40 09/11/23 12:50 09/11/23 12:50 Temperature Pulse Rate 86 Respiratory Rate 26 H Blood Pressure 85/42 L 135/62 Pulse Oximetry 93 Oxygen Delivery Method Oxygen Flow Rate 09/11/23 13:00 09/11/23 13:00 Temperature Pulse Rate 79 Respiratory Rate 26 H Blood Pressure 134/60 Pulse Oximetry 96 Oxygen Delivery Method Oxygen Flow Rate Fraction of Inspired Oxygen 70 SaO2/FiO2 Ratio 303 Oxygen Delivery Method Mechanical Ventilation Oxygen Flow Rate 0 Narrative Exam Narrative: awake, following commands NAD rate controlled symmetric chest rise Quality TeleICU VTE Deep Vein Thrombosis/Pulmonary Embolism Present on Admission: No Assessment & Plan Assessment and plan (1) Hematoma of right chest wall: Qualifiers: Encounter type: initial encounter Qualified Code(s): S20.211A - Contusion of right front wall of thorax, initial encounter Status: Acute (2) Acute hyponatremia: Status: Acute (3) Hypoxia: Status: Acute (4) Acute blood loss anemia: Status: Acute (5) Hypoxia: Status: Acute (6) Sleep apnea: Qualifiers: Sleep apnea type: obstructive Qualified Code(s): G47.33 - Obstructive sleep apnea (adult) (pediatric) Status: Acute (7) History of tracheostomy: Status: Acute (8) GERD (gastroesophageal reflux disease): Qualifiers: Esophagitis presence: without esophagitis Qualified Code(s): K21.9 - Gastro-esophageal reflux disease without esophagitis Status: Acute Assessment & Plan narrative: 78 year old male admitted to ICU with: AMS acute respiratory failure acute blood loss anemia c/f GIB chest hematoma SUGGEST - will place bakc on ful support for afternoon and evening, attempt PSV trials again tomorrow -when ready to extubate with extubate to bipap, has h/o obstruction, required trach in past (records from [place] [facility] -) there are no notes from intubation suggesting he was a difficult airway here -daiy sat/sbt -keep rass 0 to -1 -keep sat above 92% -chest pt/pulm toilet -keep map above 65 -- levophed PRN -serial cbc/coags transfuse blood products prn -surgery following for hematoma, hgb has been stable -ppi bid -GI on board, EGD deferred for now - has been npo for 48 hrs, hgb stable, maiocl consider tube feeding until AM - 09/08 RUQ sono- fattly liver- gall stones seen, but no ductal dilation, and no e/o cholecystitis. (see full report) -monitor ins/outs -lasix PRN -replace electrolytes prn -keep glucose 140-180s -gi/dvt ppx scds and ppi BID FULL CODE Time Spent With Patient Time with patient: 30 to 49 minutes with 50% spent counseling/coordinating care
--- NOTE | 2023-09-11 14:23 | CM.DPC ---
DCP Cont Reviewed chart. Patient discussed in multidisciplinary rounds. Team hopeful patient can be extubated today or tomorrow; patient has tolerated sedation vacations yesterday and today. CM team following closely as medical plan of care unfolds. JW
[2023-09-11] MEDS: fentaNYL 100 MCG/2 ML INJ 36 MCG IV (14:42)
--- NOTE | 2023-09-11 14:55 | DI.RAD.S_ITS ---
PROCEDURE: XR CHEST 1V INDICATIONS: verify OG placement for tube feeds TECHNIQUE: One view of the chest was acquired. COMPARISON: [facility], CR, XR CHEST 1V, 09/11/2023, 8:34. FINDINGS: Surgical changes and devices: The tip of the gastric tube can be seen overlying the mid stomach. An endotracheal tube is seen, with the tip 6 cm above the abdi. Lungs and pleura: On this semiupright portable chest examination, no large pneumothorax or large pleural effusions are seen. No focal infiltrates are seen. Low lung volumes are noted. This causes a crowded appearance to the lung markings and limits evaluation. Mediastinum: Mediastinal contours appear normal. Heart size is normal. Atherosclerotic calcification of the aortic arch is noted. Bones and chest wall: No suspicious bony lesions. Age-appropriate bony degenerative changes are seen. Overlying soft tissues appear unremarkable. IMPRESSION: The tip of the gastric tube can be seen overlying the mid stomach. Dictated by: Ervin Meyers M.D. on 09/11/2023 at 16:03 Approved by: Ervin Meyers M.D. on 09/11/2023 at 16:05
[2023-09-11] MEDS: propofoL 1,000 MG/100 ML VIAL 12.48 MG IV (17:32)
--- NOTE | 2023-09-11 20:10 | PM.ICURNDS ---
- Date Patient Seen: 09/11/23 Time Patient Seen: 20:10 :: This patient was seen via real time interactive two-way audiovisual telecommunication. Note: Patient failed SBT and started on zosyn given resp cx positive for GNR. Started on levophed and TF. D/w bedside RN.
[2023-09-12] VITALS (88 sets, daily range): BP systolic 63–186; BP diastolic 23–91; PULSE 47–141; RESP 10–61; TEMP 32–38.1; O2SAT 54–100
[2023-09-12] MEDS: PIPERACILLIN/TAZO 3.375 GM in SODIUM CHLORIDE 0.9% 100 ML IV (02:02)
[2023-09-12] MEDS: propofoL 1,000 MG/100 ML VIAL 12.48 MG IV ×2 (02:02→20:14)
[2023-09-12] MEDS: ACETAMINOPHEN 325 MG TABLET 650 MG PO ×2 (04:36→21:22)
[2023-09-12] MEDS: CHLORHEXIDINE GLUCONATE 15 ML CUP PO ×3 (05:51→17:17)
[2023-09-12] MEDS: dexmedeTOMIDine in 0.9 % NaCL 400 MCG/100 ML PLAST..BAG 13 MCG IV (05:51)
[2023-09-12 06:41] LABS: Add Manual Diff / Slide Review NO; Basophils Absolute Auto 100 /uL (0-100); Basophils Percent Auto 0.8 % (0-2); Eosinophils Absolute Auto 100 /uL (0-450); Eosinophils Percent Auto 0.7 % (2-4); Hematocrit 23.8 % (41-53); Hemoglobin 7.8 g/dL (13.5-17.5); Lymphocytes Absolute Auto 800 /uL (1100-4500); Lymphocytes Percent Auto 11.3 % (25-40); Mean Corpuscular HGB Conc 32.7 % (30-36); Mean Corpuscular Hemoglobin 28.3 PG (26-34); Mean Corpuscular Volume 86.7 fL (80-100); Monocytes Absolute Auto 600 /uL (0-900); Monocytes Percent Auto 8.1 % (3-14); Neutrophils Absolute Auto 5700 /uL (1500-7000); Neutrophils Percent Auto 79.1 % (50-75); Platelet Count 202 X10^3/uL (150-400); Red Blood Cell Count 2.75 X10^6/uL (4.5-5.9); White Blood Cell Count 7.2 X10^3/uL (4.5-11.0)
[2023-09-12 06:52] LABS: Alanine Aminotransferase 13 IU/L (<50); Albumin 2.5 g/dL (3.5-5.0); Albumin Globulin Ratio 0.9 (1.0-2.8); Alkaline Phosphatase 40 U/L (38-126); Aspartate Aminotransferase 21 IU/L (17-59); BUN Creatinine Ratio 28.6 (6-22); Bilirubin Total 1.1 mg/dL (0.2-1.3); Blood Urea Nitrogen 28 mg/dL (9-20); Calcium 7.6 mg/dL (8.4-10.2); Carbon Dioxide 34 mmol/L (22-32); Chloride 100 mmol/L (98-107); Estimated Glomerular Filt Rate > 60 mL/min (>60); Globulin 2.7 g/dL (1.7-4.1); Glucose 115 mg/dL (80-110); HEMOLYSIS < 15 (0-50); Potassium 3.2 mmol/L (3.4-5.1); Sodium 135 mmol/L (137-145); Total Protein 5.2 g/dL (6.3-8.2)
--- NOTE | 2023-09-12 07:23 | P.PN_ITS ---
Subjective Subjective Interval history: Patient was intubated, unable to obtain narrative. Exam Vital Signs (past 8 hours): - 09/11/23 23:30 09/11/23 23:31 09/11/23 23:31 Temperature Pulse Rate 71 76 Respiratory Rate 26 H 28 H Blood Pressure 101/51 L Pulse Oximetry 97 97 Oxygen Delivery Method 09/12/23 00:00 09/12/23 00:00 09/12/23 00:30 Temperature 98.6 F Pulse Rate 81 Respiratory Rate 20 Blood Pressure 102/52 L 105/54 L Pulse Oximetry 96 Oxygen Delivery Method 09/12/23 00:30 09/12/23 01:00 09/12/23 01:00 Temperature Pulse Rate 80 78 Respiratory Rate 23 17 Blood Pressure 111/58 L Pulse Oximetry 97 98 Oxygen Delivery Method 09/12/23 01:30 09/12/23 01:30 09/12/23 02:00 Temperature Pulse Rate 82 64 Respiratory Rate 19 20 Blood Pressure 102/55 L Pulse Oximetry 96 95 Oxygen Delivery Method 09/12/23 02:00 09/12/23 02:30 09/12/23 02:30 Temperature Pulse Rate 62 Respiratory Rate 22 Blood Pressure 101/53 L 116/57 L Pulse Oximetry 97 Oxygen Delivery Method 09/12/23 03:00 09/12/23 03:00 09/12/23 03:00 Temperature Pulse Rate 60 Respiratory Rate 18 Blood Pressure 107/53 L Pulse Oximetry 97 Oxygen Delivery Method Mechanical Ventilation 09/12/23 03:30 09/12/23 03:30 09/12/23 04:00 Temperature 99.1 F Pulse Rate 58 L 59 L Respiratory Rate 22 27 H Blood Pressure 125/59 L Pulse Oximetry 98 98 Oxygen Delivery Method 09/12/23 04:00 09/12/23 04:30 09/12/23 04:30 Temperature Pulse Rate 59 L Respiratory Rate 20 Blood Pressure 109/56 L 116/57 L Pulse Oximetry 98 Oxygen Delivery Method 09/12/23 04:36 09/12/23 05:00 09/12/23 05:00 Temperature 99.1 F Pulse Rate 68 Respiratory Rate 20 Blood Pressure 87/50 L Pulse Oximetry 96 Oxygen Delivery Method 09/12/23 05:30 09/12/23 05:30 09/12/23 05:51 Temperature 97.4 F L Pulse Rate 67 Respiratory Rate 23 Blood Pressure 90/50 L Pulse Oximetry 94 Oxygen Delivery Method 09/12/23 05:54 09/12/23 06:00 09/12/23 06:00 Temperature 97.4 F L Pulse Rate 80 Respiratory Rate 24 Blood Pressure 96/54 L Pulse Oximetry 95 Oxygen Delivery Method 09/12/23 06:30 09/12/23 06:30 Temperature Pulse Rate 72 Respiratory Rate 18 Blood Pressure 97/53 L Pulse Oximetry 96 Oxygen Delivery Method Fraction of Inspired Oxygen 70 SaO2/FiO2 Ratio 303 Oxygen Delivery Method Mechanical Ventilation Oxygen Flow Rate 0 Narrative Exam Narrative: Intubated. Awake but drowsy. ET, R IJ, Rayo Lungs clear anterior Heart regular Abdomen distended. 1+ leg edema. Objective Labs 09/12/23 06:27 09/12/23 06:27 Labs: Laboratory Results - last 24 hr 09/11/23 09/12/23 07:45 06:27 WBC 11.5 H 7.2 RBC 2.99 L 2.75 L Hgb 8.4 L 7.8 L Hct 26.0 L 23.8 L MCV 86.9 86.7 MCH 28.1 28.3 MCHC 32.3 32.7 RDW 16.2 H 16.0 H Plt Count 240 202 Neut % (Auto) 83.3 H 79.1 H Lymph % (Auto) 8.6 L 11.3 L [place] % (Auto) 7.3 8.1 Eos % (Auto) 0.1 L 0.7 L Baso % (Auto) 0.7 0.8 Neut # (Auto) 9600 H 5700 Lymph # (Auto) 1000 L 800 L [place] # (Auto) 800 600 Eos # (Auto) 0 100 Baso # (Auto) 100 100 Sodium 134 L 135 L Potassium 3.1 L 3.2 L Chloride 99 100 Carbon Dioxide 32 34 H BUN 27 H 28 H Creatinine 1.00 0.98 Estimated GFR > 60 > 60 BUN/Creatinine Ratio 27.0 H 28.6 H Glucose 87 115 H Calcium 7.7 L 7.6 L Magnesium 1.9 Total Bilirubin 1.4 H 1.1 AST 23 21 ALT 15 13 Alkaline Phosphatase 41 40 Total Protein 5.3 L 5.2 L Albumin 2.6 L 2.5 L Globulin 2.7 2.7 Albumin/Globulin Ratio 1.0 0.9 L [facility] Medical History SOB (shortness of breath) GERD (gastroesophageal reflux disease) Meralgia paresthetica, left lower limb Obesity GERD without esophagitis Dysphonia Carpal tunnel syndrome, left upper limb Osteoarthritis HTN (hypertension) Surgical History History of appendectomy History of ankle fusion History of left knee replacement History of tracheostomy History of total left knee replacement History of appendectomy Family History Other Hypertension Social History marital status: household members: spouse Smoking Status: Former smoker alcohol intake: current substance use type: marijuana Assessment & Plan Assessment & Plan narrative: 1. Acute hypoxic and hypercarbic respiratory failure, new and improved. 2. Acute pulmonary edema, new and improved. 3. Acute blood loss anemia, present on admission and active, stable. 4. Large right chest hematoma from contusion and fall. Present on admission and stable. 5. Presumed upper GI bleed with melena, present on admission and active. Defer EGD. 6. Acute hypoxic respiratory failure, present on admission and active. 7. GERD, present on admission and active. 8. 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 9. 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 10. Probable acute on chronic heart failure with hypervolemic hyponatremia in leg edema, present on admission and active. Plan: (Intubated) -Vent support + SBT (did well 09/09, 09/10) and sedation vacation. Hopeful for extubation today. -Lasix daily, 20 mg IV. Replete potassium. -eICU following, appreciate input. We will discuss whether or not he can be extubated after his SBT. -GI prophylaxis continues -ECHO (EF 60%, mild ) -delay EGD (until stabilized) -IV Protonix 40 b.i.d. for probable gastric or duodenal ulcer with bleeding. -continue to trend hemoglobin, blood as needed. This remains relatively stable. I personally provided 45 minutes of total critical care time on direct and indirect patient care activities on the date of this encounter, exclusive of time spent on other separately reportable services/procedures. Quality VTE Deep Vein Thrombosis/Pulmonary Embolism Present on Admission: No
[2023-09-12] MEDS: POTASSIUM CHLORIDE IN WATER 10 MEQ/100 ML PIGGYBACK 100 MEQ IV ×4 (08:20→13:57)
[2023-09-12] MEDS: PANTOPRAZOLE 40 MG VIAL IV ×2 (08:39→20:44)
--- NOTE | 2023-09-12 11:18 | DI.RAD.S_ITS ---
PROCEDURE: XR CHEST 1V INDICATIONS: intubation TECHNIQUE: One view of the chest was acquired. COMPARISON: [facility], CR, XR CHEST 1V, 09/11/2023, 8:34. [facility], CR, XR CHEST 1V, 09/11/2023, 14:56. FINDINGS: Surgical changes and devices: An endotracheal tube is seen, with the tip 3 cm above the abdi. The previously seen gastric tube has been removed. There is a right-sided central line, with the tip seen overlying the superior aspect of the superior vena cava, 10 cm above the cavoatrial junction. Lungs and pleura: No significant pulmonary abnormality is seen. Mediastinum: Mediastinal contours appear normal. Heart size is normal. Bones and chest wall: No suspicious bony lesions. Age-appropriate bony degenerative changes are seen. Overlying soft tissues appear unremarkable. IMPRESSION: The tip of the endotracheal tube is seen 3 cm above the abdi. Dictated by: Ervin Meyers M.D. on 09/12/2023 at 10:58 Approved by: Ervin Meyers M.D. on 09/12/2023 at 11:00
--- NOTE | 2023-09-12 11:18 | CM.DPNOTE ---
Addendum entered by NIC Carrillo 09/12/23 14:00: Per RN, transfer to higher level of care pending. [facility]. CM team will continue to follow closely. [place] Addendum entered by NIC Carrillo 09/12/23 12:12: Per chart review, pt had to be re-intubated today. Family at bedside. CM team will continue to follow closely. [place] Original Note: DCP Note Reviewed EMR. Per provider in morning rounds, potential to extubate today. Pt has tolerated sedation vacations thus far. Spouse at bedside throughout morning. CM team will continue to follow closely as medical plan of care unfolds. NIC Carrillo
[2023-09-12] MEDS: LORazepam 2 MG/ML INJ 1 MG IV (11:29)
--- NOTE | 2023-09-12 11:33 | ED.CONSULT ---
ED Provider Consult/Code Note General Date Patient Seen: 09/12/23 Time Patient Seen: 11:03 Reason for Admission: SOB/GI Bleed Events leading to Consult/Code: Patient was recently extubated, was not tolerating well was on BiPAP but appeared to require re-intubation. Anesthesia is not currently available. Patient does have prior history of trach remotely. Patient is obtunded and not protecting airway. Cardiac Additional: Tachycardia Respiratory ET Tube Size: 7 Tube Secured Depth (cm): 25 Tube Secured Location: teeth Tube Placement Confirmation: Visualized tube passing through cords, Equal breath sounds bilaterally, No breath sounds over epigastrium, Confirmation by capnometry and Chest Xray Care Provided Description of care provided: Intubation Preprocedure diagnosis: Acute hypoxic respiratory failure/GI bleed Postprocedure diagnosis: Acute hypoxic respiratory failure Indication: Hypoxic respiratory failure, altered mental status, unable to protect airway Type of procedure: Endotracheal intubation Procedure was done at bedside in the emergency department. Consent was waived as this was an emergent procedure. The patient was properly identified and the procedure was performed with the staff. Prior to intubation monitors were in place and equipment was checked. Patient was preoxygenated. Medications given were: Etomidate 10 mg, succinylcholine 100 mg Intubation was performed by myself with colitis A 7.0 Endotracheal tube was inserted between vocal cords which were visualized. CO2 monitor showed good color change. Positive breath sounds bilaterally with mist in the tube. Tube was taped at 25 cm at the lip by the respiratory therapist, ET tube was secured by myself and respiratory therapy. Chest x-ray is obtained at this time: Shows ET tube in place. Complications: None.
[2023-09-12] MEDS: ETOMIDATE 2 MG/ML 10 ML VIAL 10.6 MG IV (11:53)
[2023-09-12] MEDS: SUCCINYLCHOLINE 200 MG/10 ML VIAL 100 MG IV (11:54)
[2023-09-12] MEDS: cefTRIAXone 2,000 MG in SODIUM CHLORIDE 0.9% 100 ML 200 MG IV (11:56)
--- NOTE | 2023-09-12 12:28 | PM.PN.EICU ---
Subjective Subjective IF CAMERA ACTIVATED, patient seen via real-time interactive audiovisual communication: Camera activated Consent obtained for tele-geospatial specialist care: Yes Patient Location: ICU Provider location (State): [place] Other participants/roles: RN Interval history: Pt was awake followimg commands this AM, did well on 02/18 on PSV, extubation was attempted but he was reintubsted wih 30 min, as he had some stridor post intuation raisning the suspicion of subglottic stenosis Current Medications Current Medications Medications: Home Medications aspirin 325 mg tablet 325 mg PO .prn 12/01/17 [History Confirmed 09/08/23] amlodipine 5 mg tablet 5 mg PO DAILY #90 tabs 05/05/23 [Rx Confirmed 09/08/23] azelastine 137 mcg (0.1 %) nasal spray aerosol 2 spray intranasal BID #30 mL 05/05/23 [Rx Confirmed 09/08/23] carvedilol 12.5 mg tablet 12.5 mg PO BID #180 tabs 05/05/23 [Rx Confirmed 09/08/23] furosemide 40 mg tablet 40 mg PO DAILY #90 tabs 05/05/23 [Rx Confirmed 09/08/23] pantoprazole 20 mg tablet,delayed release 20 mg PO DAILY #90 tabs 05/05/23 [Rx Confirmed 09/08/23] prednisone 1 mg tablet 1 mg PO DAILY #90 tabs 05/05/23 [Rx Confirmed 09/08/23] hydrocodone 5 mg-acetaminophen 325 mg tablet 1 tab PO Q8H PRN pain #20 tabs 07/07/23 [Rx Confirmed 09/08/23] sertraline 25 mg tablet 25 mg PO .COMPLEX #90 tabs 09/06/23 [Rx Confirmed 09/08/23] Visit Medications (administered) Generic Name Dose Route Start Last Admin Trade Name Freq PRN Reason Stop Dose Admin Acetaminophen 650 mg 09/08/23 14:47 09/12/23 04:36 Acetaminophen 325 Mg Tablet PO 650 mg Q6H PRN Administration Fever/Mild Pain (1-3) Chlorhexidine Gluconate 15 ml 09/09/23 12:00 09/12/23 11:57 Chlorhexidine Gluconate 15 Ml Cup PO 15 ml Q6HR JAMILA Administration Fentanyl 36 mcg 09/09/23 07:42 09/11/23 14:42 Fentanyl 100 Mcg/2 Ml Inj 0.35 mcg/kg (36 mcg) 36 mcg IV Administration Q1HR PRN Pain, Severe (7-10) Heparin Sodium (Porcine) 50 unit 09/09/23 10:51 09/09/23 10:56 Heparin Flush (Cl/Picc/Mid-Line) 50 Unit/5 Ml Syringe IV 50 unit PRN PRN Administration Flush Propofol 1,000 mg in 100 mls @ 3.12 mls/hr 09/09/23 07:45 09/12/23 08:25 Propofol IV 0 mcg/kg/min TITRATE JAMILA 0 mls/hr Titration Protocol 5 MCG/KG/MIN Sodium Chloride 1,000 mls @ 100 mls/hr 09/09/23 07:45 09/11/23 09:57 Normal Saline 0.9% IV 0 mls/hr CONT JAMILA Infusion dexmedeTOMIDine in 0.9 % NaCL 400 mcg in 100 mls @ 5.2 mls/hr 09/09/23 11:00 09/12/23 10:52 Precedex IV 0.7 mcg/kg/hr TITRATE JAMILA 18.2 mls/hr Titration Protocol 0.2 MCG/KG/HR NOREPINEPHRINE BITARTRATE/D5W 4 mg in 250 mls @ 39 mls/hr 09/09/23 13:15 09/12/23 09:00 Levophed IV 0.012 mcg/kg/min TITRATE JAMILA 4.68 mls/hr Titration Protocol 0.1 MCG/KG/MIN Ceftriaxone Sodium 2,000 mg/ 100 mls @ 200 mls/hr 09/12/23 10:30 09/12/23 11:56 Sodium Chloride IV 200 mls/hr Q24H JAMILA Administration Lorazepam 1 mg 09/12/23 10:53 09/12/23 11:29 Lorazepam 2 Mg/Ml Inj IV 1 mg Q4HR PRN Administration Anxiety Naloxone HCl 0.2 mg 09/08/23 14:47 09/09/23 06:15 Naloxone 0.4 Mg/Ml Vial IV 0.2 mg Q2MIN PRN Administration Opiate Reversal Pantoprazole Sodium 40 mg 09/08/23 16:05 09/12/23 08:39 Pantoprazole 40 Mg Vial IV 40 mg BID JAMILA Administration Objective Ventilator Parameters: Ventilator Settings Pressure Control 35 FiO2 100 RT Vent Frequency 16 Ventilator Tidal Volume 530 Exhaled Vt/kg IBW 7 Positive End Expiratory 5 Pressure Ventilator Pressure Support 10 Inspiratory Phase Time 1.00 I:E Ratio 1:3.7 Patient Position HOB >= 30 degrees Labs 09/12/23 06:27 09/12/23 06:27 Labs: Laboratory Results - last 24 hr 09/12/23 06:27 WBC 7.2 RBC 2.75 L Hgb 7.8 L Hct 23.8 L MCV 86.7 MCH 28.3 MCHC 32.7 RDW 16.0 H Plt Count 202 Neut % (Auto) 79.1 H Lymph % (Auto) 11.3 L [place] % (Auto) 8.1 Eos % (Auto) 0.7 L Baso % (Auto) 0.8 Neut # (Auto) 5700 Lymph # (Auto) 800 L [place] # (Auto) 600 Eos # (Auto) 100 Baso # (Auto) 100 Sodium 135 L Potassium 3.2 L Chloride 100 Carbon Dioxide 34 H BUN 28 H Creatinine 0.98 Estimated GFR > 60 BUN/Creatinine Ratio 28.6 H Glucose 115 H Calcium 7.6 L Total Bilirubin 1.1 AST 21 ALT 13 Alkaline Phosphatase 40 Total Protein 5.2 L Albumin 2.5 L Globulin 2.7 Albumin/Globulin Ratio 0.9 L Exam Vital Signs (past 8 hours): - 09/12/23 04:30 09/12/23 04:30 09/12/23 04:36 Temperature 99.1 F Pulse Rate 59 L Respiratory Rate 20 Blood Pressure 116/57 L Pulse Oximetry 98 Oxygen Delivery Method 09/12/23 05:00 09/12/23 05:00 09/12/23 05:30 Temperature Pulse Rate 68 67 Respiratory Rate 20 23 Blood Pressure 87/50 L Pulse Oximetry 96 94 Oxygen Delivery Method 09/12/23 05:30 09/12/23 05:51 09/12/23 05:54 Temperature 97.4 F L 97.4 F L Pulse Rate Respiratory Rate Blood Pressure 90/50 L Pulse Oximetry Oxygen Delivery Method 09/12/23 06:00 09/12/23 06:00 09/12/23 06:30 Temperature Pulse Rate 80 Respiratory Rate 24 Blood Pressure 96/54 L 97/53 L Pulse Oximetry 95 Oxygen Delivery Method 09/12/23 06:30 09/12/23 07:00 09/12/23 07:00 Temperature Pulse Rate 72 77 Respiratory Rate 18 30 H Blood Pressure 105/57 L Pulse Oximetry 96 97 Oxygen Delivery Method 09/12/23 07:00 09/12/23 07:30 09/12/23 07:30 Temperature Pulse Rate 77 Respiratory Rate 23 Blood Pressure 101/55 L Pulse Oximetry 96 Oxygen Delivery Method Mechanical Ventilation 09/12/23 08:00 09/12/23 08:00 09/12/23 08:31 Temperature Pulse Rate 79 56 L Respiratory Rate 25 H 19 Blood Pressure 108/55 L Pulse Oximetry 97 92 Oxygen Delivery Method 09/12/23 08:31 09/12/23 08:35 09/12/23 08:35 Temperature Pulse Rate 65 Respiratory Rate 22 Blood Pressure 186/88 H 102/51 L Pulse Oximetry 54 L Oxygen Delivery Method 09/12/23 09:00 09/12/23 09:01 09/12/23 09:01 Temperature Pulse Rate 79 82 Respiratory Rate 28 H 27 H Blood Pressure 63/30 L Pulse Oximetry 94 93 Oxygen Delivery Method 09/12/23 09:03 09/12/23 09:03 09/12/23 09:17 Temperature Pulse Rate 80 76 Respiratory Rate 27 H 25 H Blood Pressure 84/45 L Pulse Oximetry 93 94 Oxygen Delivery Method 09/12/23 09:17 09/12/23 09:29 09/12/23 09:29 Temperature Pulse Rate 85 Respiratory Rate 16 Blood Pressure 95/48 L 98/49 L Pulse Oximetry 94 Oxygen Delivery Method 09/12/23 09:30 09/12/23 09:30 09/12/23 10:00 Temperature Pulse Rate 85 86 Respiratory Rate 24 12 Blood Pressure 105/53 L Pulse Oximetry 93 96 Oxygen Delivery Method 09/12/23 10:00 09/12/23 10:00 09/12/23 10:30 Temperature Pulse Rate 89 Respiratory Rate 30 H Blood Pressure 119/59 L Pulse Oximetry 94 97 Oxygen Delivery Method 09/12/23 10:30 Temperature Pulse Rate Respiratory Rate Blood Pressure 114/56 L Pulse Oximetry Oxygen Delivery Method Fraction of Inspired Oxygen 70 SaO2/FiO2 Ratio 303 Oxygen Delivery Method Mechanical Ventilation Oxygen Flow Rate 0 Narrative Exam Narrative: awake, following comammnds synchronous with vent rate controlled Quality TeleICU VTE Deep Vein Thrombosis/Pulmonary Embolism Present on Admission: No Assessment & Plan Assessment and plan (1) Hematoma of right chest wall: Qualifiers: Encounter type: initial encounter Qualified Code(s): S20.211A - Contusion of right front wall of thorax, initial encounter Status: Acute (2) Acute hyponatremia: Status: Acute (3) Hypoxia: Status: Acute (4) Acute blood loss anemia: Status: Acute (5) Hypoxia: Status: Acute (6) Sleep apnea: Qualifiers: Sleep apnea type: obstructive Qualified Code(s): G47.33 - Obstructive sleep apnea (adult) (pediatric) Status: Acute (7) History of tracheostomy: Status: Acute (8) GERD (gastroesophageal reflux disease): Qualifiers: Esophagitis presence: without esophagitis Qualified Code(s): K21.9 - Gastro-esophageal reflux disease without esophagitis Status: Acute Assessment & Plan narrative: 78 year old male admitted to ICU with: AMS acute respiratory failure acute blood loss anemia c/f GIB chest hematoma SUGGEST - pt reintubated, i think we can continue PSV when he is more awake though extubation is not possible in setting of subglottic stenosis ( could be vocal cord dysfunction as well) it will be hard in our setting to determine if or what degree of subglottic stenosis there is while inutbation ( if extuabted we could PFt , either way though he will need an ENT eval for this. I think the best approach may be a tracheostomy and then we can prioceed further with possible IP vs ent intervention -keep rass 0 to -1 -keep sat above 92% -chest pt/pulm toilet -keep map above 65 -- levophed PRN -serial cbc/coags transfuse blood products prn -surgery following for hematoma, hgb has been stable -ppi bid -GI on board, EGD deferred for now - can resume tube feeding -monitor ins/outs -lasix PRN -replace electrolytes prn -keep glucose 140-180s -gi/dvt ppx scds and ppi BID FULL CODE Time Spent With Patient Time with patient: 30 to 49 minutes with 50% spent counseling/coordinating care
--- NOTE | 2023-09-12 12:40 | P.EN_ITS ---
Event Note Event Note (Rapid Response, Code, or fall): Re-intubation for respiratory failure: The patient was extubated shortly after 11:00 a.m.. He had a progressive deterioration over 30 minutes. He developed severe respiratory distress and tachycardia as well as altered mental status. This is all refractory to BiPAP. The patient required emergent re-intubation. Emergency physician and anesthesia were paged given his history of laryngeal mass and complaints of stridor drain this.. The patient was bagged and ultimately did have a degree of hypoxia. This improved immediately after intubation with 1 attempted good visualization by the emergency physician using the glide scope. The patient was given etomidate and succinylcholine for intubation. His vital signs improved rapidly after intubation and his tube was confirmed by chest x- ray, capnometry, and examination. Plan: -case was discussed with the ICU tele doctor. This patient would be best served with a transfer for higher level of care. We will call [facility] [place] where he has had a tracheostomy in the past. I anticipate he will require tracheostomy again for his ultimate extubation plan. I also am concerned about the possibility of tracheal stenosis causing some of his symptoms leading up to his initial intubation and re-intubation. [facility] was at approximately 12:25 p.m. and this transfer request he has been initiated. Pavel Shepard MD
--- NOTE | 2023-09-12 12:47 | PC.NURSE ---
Addendum entered by Angélica Ho R.N. 09/12/23 16:20: Pt bradycardic 40s'-50's. Titrated down on dexmedetomidine, paused IV. Propofol titrated to 15mcg/kg/min. Provider notified. No new orders. HR 48, pt awakens, can follow simple commands, squeeze hand, shake head yes/no. Care ongoing, will continue to monitor. Original Note: Day shift: Pt opening eyes, responds to name, follows commands, is able to lift head off pillow. Propofol paused at 0925. Pt continues to follow commands, vitals stable. SBT initiated at 940. Pt remained stable. Extubation at 1020. Pt able to speak in full sentences, mouth dry, mouth moistened. Pt placed on BiPAP by RT. Pt tolerating BP for a few minutes. Pt became tachypneic rapidly, restless extremities, pulling at blankets. Spouse asked pt if he was okay. Pt reported, I don't know. Something is different. RT at bedside. Tachypneic, O2 sat 96%. Dexmedetomidine increased for restlessness/anxiety. Provider notified of change in status. Pt O2 88% with audible strider, RT at bedside, provider at bedside. Pt clearly in respiratory distress. Nurse coordinator aware, anesthesia called, ED MD at bedside. Pt reintubated by hospitalist and ED MD at approximately 1120. BP support reinitated d/t hypotension, propofol reinitated for sedation. Pt able to squeeze hands, open eyes, follow minimal commands. Care ongoing, Will continue to monitor.
[2023-09-12] MEDS: dexmedeTOMIDine in 0.9 % NaCL 400 MCG/100 ML PLAST..BAG 15.6 MCG IV (13:57)
[2023-09-12] MEDS: NOREPINEPHRINE BITARTRATE/D5W 4 MG/250 ML PLAST..BAG 19.5 MG IV (17:08)
--- NOTE | 2023-09-12 17:53 | DI.RAD.S_ITS ---
PROCEDURE: XR CHEST 1V INDICATIONS: OG placement TECHNIQUE: One view of the chest was acquired. COMPARISON: [facility], CR, XR CHEST 1V, 09/12/2023, 11:15. [facility], CR, XR CHEST 1V, 09/11/2023, 14:56. FINDINGS: Surgical changes and devices: Gastric tube tip and side port project over the midesophagus. Right IJ central venous catheter tip is not clearly identified. Lungs and pleura: Lungs are clear. No pleural effusions or pneumothorax. Mediastinum: Mediastinal contours appear normal. Heart size is normal. Bones and chest wall: No suspicious bony lesions. Overlying soft tissues appear unremarkable. IMPRESSION: Gastric tube tip and side port project over the midesophagus. Recommended advancement by 8 cm. Dictated by: Evin Gautam M.D. on 09/12/2023 at 19:06 Approved by: Evin Gautam M.D. on 09/12/2023 at 19:08
--- NOTE | 2023-09-12 20:22 | PM.ICURNDS ---
- Date Patient Seen: 09/12/23 Time Patient Seen: 20:22 :: This patient was seen via real time interactive two-way audiovisual telecommunication. Note: Patient failed extubation trial and was emergently reintubated for stridor. He has been accepted to OSH for further management. Currently sedated with propofol and on levophed. D/w bedside RN.
--- NOTE | 2023-09-13 00:43 | PC.NURSE ---
Discharge Note: Patient transferring to [address] ICU [address] [id number] report called to Pat WEINSTEIN around 2310. wiring mechanic Nathaniel to bedside with EMT around 2466. Report given and patient loaded onto transport stretcher. Patient sedated to RASS-2 on Propofol at 30. Sinus Arrhythmia with a 1st degree AVB. BP stable with a MAP >65 with Norepinephrine, patient left on 0.075. 7.0 ETT intact at 24 @teeth, tolerating VC/AC 30%FiO2, PEEP 5, TV 530, Rate 16. OGT intact @ 64 teeth, clamped. Rayo intact draining tea colored urine. TLC to R IJ intact running gtts per order. B soft wrist restraints intact for transport. Patients eye glasses transported with patient. Transport consent signed via verbal over phone with Leticia and second RN Elida. (Leticia) notified of departure. FLACC=0.
--- NOTE | 2023-09-13 07:04 | PC.NURSE ---
Patient sedated on Propofol and BP maintained with Norepinepherine. Transport crew given report and handed off remaining propofol in hanging bottle as well as a new bottle of propofol. Transport crew was also sent with remaining Norepinepherine and new bag.
--- NOTE | 2023-09-13 14:29 | PM.DS.1 ---
History of Present Illness History of Present Illness Date Patient Seen: 09/08/23 Chief complaint: SOB/GI Bleed Narrative: This patient is 78-year-old male who presented by helicopter from [facility]. He is complaint was fatigue and dyspnea as well as black stool. The patient was a very interesting gentleman with history of hypertension and GERD as well as heart failure. He has had significant chronic left and right knee pain related to arthritis. He takes about 6 aspirin and some ibuprofen every day for this. 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 Since that time he has had chronic symptoms of both sleep apnea and stridor he describes having the auto PEEP to breathe adequately. He also notes multiple seizures or seizure type episodes have not been evaluated and treated in the past. There was 1 that was witnessed by his where he was outstretched and rigid with his eyes straightening straight ahead, but no tonic-clonic activity in a very short period of confusion afterwards. He had a recent fall about a week and a half ago with a left rib fracture. He would another fall several days prior where he fell over the back of his chair because he fell asleep in a standing position we will try to off weight his right knee to improve the pain. He notes black tarry stool for several days. He denies any history of GI bleeding or epigastric abdominal pain. He was hypoxic can his primary care doctor's office on [facility] as well as in the emergency department but responded to 4 L of oxygen. Chest x-ray is fairly unremarkable. There is no recent echo data. He has not been evaluated for sleep apnea in the outpatient setting. He denies any chest pain, palpitations, fevers, chills. No recent cough. No vomiting of blood. With regards to level of care he is full resuscitation. He is unsure about being on a mechanical ventilator again. Discharge Providers Provider Date of admission: 09/08/23 13:34 Discharge Date: 10/12/23 Primary care physician: Jeremy Bernal MD Consults: 09/08/23 13:37 Consult to General Surgery Routine Comment: Consulting Provider: Mindy Hayward Reason for consultation: ant chest wall trauma with large hematoma and hypoxia of blood loss Has provider been notified: Yes 09/08/23 14:50 Consult to Occupational Therapy Evaluate & Treat Comment: Physician Instructions: Evaluate and treat Consult to Physical Therapy Evaluate & Treat Comment: Physician Instructions: Evaluate and Treat 09/09/23 07:42 Consult to Dietitian, Adult Routine Comment: Reason For Exam: Patient on Ventilator and NPO 09/09/23 08:01 Consult to Tele-research group director Routine Comment: Consulting Provider: Claribel [employer]intensiv[employer] Reason for consultation: [employer] services Has provider been notified: Yes Discharge provider: Pavel Shepard MD Summary Hospital Course Discharge Diagnosis: 1. Acute hypoxic and hypercarbic respiratory failure, new and improved. 2. Acute pulmonary edema, new and improved. 3. Acute blood loss anemia, present on admission and active, stable. 4. Large right chest hematoma from contusion and fall. Present on admission and stable. 5. Presumed upper GI bleed with melena, present on admission and active. Defer EGD. 6. Acute hypoxic respiratory failure, present on admission and active. 7. GERD, present on admission and active. 8. 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 9. 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 10. Probable acute on chronic heart failure with hypervolemic hyponatremia in leg edema, present on admission and active. 11. Failed extubation and reintubation on 09/11 11:45 AM. Hospital Course: This patient was admitted for concern for GI bleeding. He developed hypercapnic respiratory failure over the 1st night of his admission requiring intubation. The patient was diuresed for possible heart failure and treated for pneumonia over the next 2 days and extubated. Unfortunately, he developed severe hypercarbic recurrent respiratory failure with altered mental status requiring emergent re-intubation. 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 He is status post a tracheostomy distantly at [facility]. The case was discussed with the ICU tele doctor, it was felt that the patient would be very high risk for further [facility] The patient was felt to be high risk for tracheostomy. Transfer was requested to [facility] as he would received care there before. The patient was also found to have Klebsiella in his sputum and was on antibiotics for this. He was transferred on the evening of September 11 by [facility] ambulance. He will receive further care including likely advanced planning for very difficult extubation including the possibility of tracheostomy. Status at Discharge Cognitive/behavioral status at discharge: confused Functional status at discharge: bed bound Overall status at discharge: other (Intubated and sedated at transfer. ) Time Spent with Patient Time spent: Greater than 30 minutes Exam Vital Signs (past 8 hours): Fraction of Inspired Oxygen 40 SaO2/FiO2 Ratio 303 Oxygen Delivery Method Mechanical Ventilation Oxygen Flow Rate 0 Narrative Exam Narrative: See exam in progress notes. Objective Imaging Chest x-ray: Radiologist's impression: Surgical changes and devices: Gastric tube tip and side port project over the midesophagus. Right IJ central venous catheter tip is not clearly identified. Lungs and pleura: Lungs are clear. No pleural effusions or pneumothorax. Mediastinum: Mediastinal contours appear normal. Heart size is normal. Bones and chest wall: No suspicious bony lesions. Overlying soft tissues appear unremarkable. IMPRESSION: Gastric tube tip and side port project over the midesophagus. Recommended advancement by 8 cm. Echo: Radiologist's impression: Normal sinus rhythm. Normal LV size and mild concentric LVH; normal wall motion and LV systolic function. EF is 60-65%. Moderate LA enlargement; otherwise normal chamber sizes. Aortic valve is a trileaflet structure with mild associated aortic stenosis. Otherwise no significant valvular abnormalities. No prior study available for comparison. CT scan - head: Radiologist's impression: Atrophy and chronic ischemic change without acute hemorrhage or mass effect US - abdomen: Radiologist's impression: Enlarged, fatty liver. The main portal vein is mildly dilated. Gallstones are seen, yet without additional sonographic signs of cholecystitis. Negative for biliary dilatation. Please correlate with physical examination findings, patient presentation, and laboratory values. Chest/Abdomen/Pelvis CT:: Radiologist's impression: Surgical changes and devices: The tip of the gastric tube can be seen overlying the mid stomach. An endotracheal tube is seen, with the tip 6 cm above the abdi. Lungs and pleura: On this semiupright portable chest examination, no large pneumothorax or large pleural effusions are seen. No focal infiltrates are seen. Low lung volumes are noted. This causes a crowded appearance to the lung markings and limits evaluation. Mediastinum: Mediastinal contours appear normal. Heart size is normal. Atherosclerotic calcification of the aortic arch is noted. Bones and chest wall: No suspicious bony lesions. Age-appropriate bony degenerative changes are seen. Overlying soft tissues appear unremarkable. IMPRESSION: The tip of the gastric tube can be seen overlying the mid stomach. Labs 09/12/23 06:27 09/12/23 06:27 [facility] Medical History SOB (shortness of breath) GERD (gastroesophageal reflux disease) Meralgia paresthetica, left lower limb Obesity GERD without esophagitis Dysphonia Carpal tunnel syndrome, left upper limb Osteoarthritis HTN (hypertension) Surgical History History of appendectomy History of ankle fusion History of left knee replacement History of tracheostomy History of total left knee replacement History of appendectomy Family History Other Hypertension Social History marital status: household members: spouse Smoking Status: Former smoker alcohol intake: current substance use type: marijuana Discharge Assessment & Plan Assessment and Plan Assessment: 1. Acute hypoxic and hypercarbic respiratory failure, new and improved. 2. Acute pulmonary edema, new and improved. 3. Acute blood loss anemia, present on admission and active, stable. 4. Large right chest hematoma from contusion and fall. Present on admission and stable. 5. Presumed upper GI bleed with melena, present on admission and active. Defer EGD. 6. Acute hypoxic respiratory failure, present on admission and active. 7. GERD, present on admission and active. 8. 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 9. 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 10. Probable acute on chronic heart failure with hypervolemic hyponatremia in leg edema, present on admission and active. 11. Failed extubation and reintubation on 09/11 11:45 AM. Discharge Plan Discharge Plan Patient Disposition: [facility] Other facility: [facility] Under care of provider: ICU Physician Provider Discharge Comment: Transferred to [facility] for ongoing care. Discharge orders & Medications Medication counseling provided by Pharmacist: No Discharge Health Status Multidrug resistant organism: No MDRO Diet/Activity/Treatments Diet: Tube Feeding Discharge Data Primary Care Provider: Jeremy Bernal VTE Deep Vein Thrombosis/Pulmonary Embolism Present on Admission: No
== END 2023-09-13 00:25 | disposition short-term general hospital (02) | DRG 208 ==
LOC: ED 11:37 → AC 13:37 → ICU 09-09 12:26 → AC 09-09 14:23
PROVIDERS: Internal Medicine; Internal Medicine Critical Care Medicine; Admitting Provider Hospitalist; Emergency Provider Emergency Medicine; Family Provider Physician Assistant; PCP Family Medicine; Referring Provider Emergency Medicine; Visit Provider Hospitalist
DX: J96.01 Acute respiratory failure with hypoxia (principal); I50.33 Acute on chronic diastolic (congestive) heart failure; K92.2 Gastrointestinal hemorrhage, unspecified; D62 Acute posthemorrhagic anemia; E87.1 Hypo-osmolality and hyponatremia; J96.02 Acute respiratory failure with hypercapnia; S20.211A Contusion of right front wall of thorax, initial encounter; W18.30XA Fall on same level, unspecified, initial encounter; K21.9 Gastro-esophageal reflux disease without esophagitis; R49.0 Dysphonia; I11.0 Hypertensive heart disease with heart failure; E66.8 Other obesity; Z68.37 Body mass index [BMI] 37.0-37.9, adult; Z87.891 Personal history of nicotine dependence
CPT/HCPCS: 36415; 36430; 36592; 36600; 70450; 71045; 71260; 74177; 76705; 80048; 80053; 82805; 82962; 83735; 83880; 84484; 85014; 85018; 85025; 86850; 86900; 86901; 87040; 87070; 87077; 87147; 87186; 87205; 87797; 93306; 94002; 94003; 94010; 94660; 94762; 94799; 96374; 99231; 99233; 99285; P9016; C9113; J0330; J0696; J1642; J1644; J1940; J2060; J2310; J2543; J2704; J3010; Q9967

== ENCOUNTER → 2023-11-04 09:16 | Outpatient (CLI) | payer MEDICARE, SELFPAY ==
[2023-09-08 14:51] VITALS: BMI 35.9
[2023-09-11 18:10] VITALS: RESP 4
[2023-09-12 23:00] VITALS: PULSE 74; RESP 16; O2SAT 100
[2023-11-04 19:59] LABS: HEMOLYSIS < 15 (0-50); Iron 38 ug/dL (49-181)
[2023-11-04 20:02] LABS: Alanine Aminotransferase 25 IU/L (<50); Albumin 2.9 g/dL (3.5-5.0); Alkaline Phosphatase 66 U/L (38-126); Aspartate Aminotransferase 23 IU/L (17-59); BUN Creatinine Ratio 22.2 (6-22); Bilirubin Total 0.5 mg/dL (0.2-1.3); Blood Urea Nitrogen 20 mg/dL (9-20); Calcium 8.5 mg/dL (8.4-10.2); Carbon Dioxide 31 mmol/L (22-32); Chloride 101 mmol/L (98-107); Cholesterol 143 mg/dL (140-199); Estimated Glomerular Filt Rate > 60 mL/min (>60); Globulin 2.8 g/dL (1.7-4.1); Glucose 93 mg/dL (80-110); HDL Cholesterol 40 mg/dL (40-60); HEMOLYSIS < 15 (0-50); LDL Cholesterol Calculated 91 mg/dL (<100); Potassium 4.7 mmol/L (3.4-5.1); Sodium 133 mmol/L (137-145); Total Protein 5.7 g/dL (6.3-8.2); Triglycerides 61 mg/dL (35-150)
[2023-11-04 20:06] LABS: Add Manual Diff / Slide Review NO; Basophils Absolute Auto 0 /uL (0-100); Basophils Percent Auto 0.5 % (0-2); Eosinophils Absolute Auto 100 /uL (0-450); Eosinophils Percent Auto 1.7 % (2-4); Hematocrit 27.1 % (41-53); Hemoglobin 8.7 g/dL (13.5-17.5); Lymphocytes Absolute Auto 1400 /uL (1100-4500); Lymphocytes Percent Auto 20.4 % (25-40); Mean Corpuscular Hemoglobin 29.1 PG (26-34); Mean Corpuscular Volume 90.7 fL (80-100); Monocytes Absolute Auto 800 /uL (0-900); Monocytes Percent Auto 12.1 % (3-14); Neutrophils Absolute Auto 4500 /uL (1500-7000); Neutrophils Percent Auto 65.3 % (50-75); Platelet Count 327 X10^3/uL (150-400); Red Blood Cell Count 2.99 X10^6/uL (4.5-5.9); Red Cell Distribution Width 21.6 % (11.6-14.8); White Blood Cell Count 6.9 X10^3/uL (4.5-11.0)
[2023-11-04 20:11] LABS: Percent Iron Saturation 13 % (20-50); Total Iron Binding Capacity 294 ug/dL (261-462); Transferrin 206 mg/dL (206-381)
[2023-11-04 20:33] LABS: TSH w/ Reflex to FT4 2.65 uIU/mL (0.47-4.68)
[2023-11-04 20:54] LABS: Anisocytosis 2+
== END ==
PROVIDERS: Family Provider Physician Assistant; PCP Family Medicine; Visit Provider Family Medicine
DX: Z01.818 Encounter for other preprocedural examination (principal); D64.9 Anemia, unspecified; K92.2 Gastrointestinal hemorrhage, unspecified; T39.395A Adverse effect of other nonsteroidal anti-inflammatory drugs [NSAID], initial encounter; R09.02 Hypoxemia; R56.9 Unspecified convulsions; G47.30 Sleep apnea, unspecified; L57.0 Actinic keratosis; G56.03 Carpal tunnel syndrome, bilateral upper limbs; S22.000A Wedge compression fracture of unspecified thoracic vertebra, initial encounter for closed fracture; F32.A Depression, unspecified; E87.1 Hypo-osmolality and hyponatremia; E78.5 Hyperlipidemia, unspecified; K21.9 Gastro-esophageal reflux disease without esophagitis; I10 Essential (primary) hypertension
CPT/HCPCS: 80053; 80061; 83540; 83550; 84443; 85025